=== PATIENT | female | born 1965 | race Caucasian/White ===

== ENCOUNTER 2019-05-25 09:02 | Inpatient (IN) | payer BC, SELFPAY ==
[2019-05-25] VITALS (36 sets, daily range): BP systolic 103–175; BP diastolic 56–107; PULSE 80–109; RESP 15–24; TEMP 36.4–36.9; O2SAT 94–100; BMI 23.3; BMI 23.1; BMI 22.9
--- NOTE | 2019-05-25 09:21 | EKG12_ITS ---
Test Reason : STROKE TEAM Blood Pressure : / mmHG Vent. Rate : 092 BPM Atrial Rate : 092 BPM P-R Int : 134 ms QRS Dur : 104 ms QT Int : 374 ms P-R-T Axes : 052 002 056 degrees QTc Int : 462 ms Normal sinus rhythm Nonspecific ST abnormality Abnormal ECG Confirmed by OSWALD BARBOUR, VENICE ([id number]), assignment desk editor RADHA WESTBROOK ([id number]) on 05/30/2019 11:44:49 AM Referred By: PORTIA Confirmed By:BAYRON AKERS MD
--- NOTE | 2019-05-25 09:21 | CT_ITS ---
STUDY: CT BRAIN WITHOUT CONTRAST REASON FOR EXAM: Female, 54 years old. Stroke protocol. RADIATION DOSAGE (If Supplied By Facility): CTDIvol = ( 44.99 ) mGy, DLP = ( 745.49 ) mGycm TECHNIQUE: Transaxial CT imaging of the brain was performed without administration of intravenous contrast material. Multiplanar reformations are submitted for interpretation. Individualized dose optimization techniques were used for this CT. COMPARISON: No relevant priors. FINDINGS: Normal soft tissue structures. Normal calvarium. Normal size ventricles and extra-axial spaces for the patient''s age. Normal white matter tracts of the cerebral hemispheres. Normal basal ganglia and thalami. Normal brainstem. Normal cerebellum. There is no intracranial hemorrhage. There is minimal atherosclerotic calcification of the intracranial arteries. There is opacification of right-sided mastoid air cells. Left-sided mastoid is well pneumatized. Normal visualized paranasal sinuses. CT/Brain/Head without Contrast IMPRESSION: 1. No CT evidence of acute intracranial hemorrhage. 2. Right-sided mastoid disease. N.B. : The above information has been verbally conveyed by Maria Isabel Matamoros MD to Rahul Horowitz M.D., MD, on 05/25/2019 09:37:36 (ET). Electronically Signed: Maria Isabel Matamoros MD at 9:39 EST , Service support ,
--- NOTE | 2019-05-25 09:22 | CT_ITS ---
STUDY: CTA HEAD AND NECK WITH CONTRAST REASON FOR EXAM: Female, 54 years old. Signs and symptoms of the posterior circulation CVA with dizziness and extremity weakness. RADIATION DOSAGE (If Supplied By Facility): CTDIvol = ( 28.4 ) mGy, DLP = ( 540.04 ) mGycm TECHNIQUE: CT angiography was performed with a multi-detector CT scanner. Data acquisition was obtained from the skull base through the vertex following intravenous administration of 100 cc of Isovue 370. MIP images were reconstructed from the axial data set. Post-processing of the angiographic images was performed, with multiplanar reformation and 3D reconstruction. Individualized dose optimization techniques were used for this CT. COMPARISON: CT of the head dated May 25, 2019. FINDINGS: Normal bilateral petrous carotid arteries. There is elongation and tortuosity of the right cavernous carotid artery without a demonstrated hemodynamically significant stenosis. There is ectatic elongation and tortuosity of the left cavernous carotid artery without a demonstrated hemodynamically significant stenosis. Normal right A1 segments of the anterior cerebral artery. Normal left A1 segments of the anterior cerebral artery. Normal intact anterior communicating artery (ACOM). There appears to be azygous variant of the A2 segment. Normal right M1 and M2 segments of the middle cerebral arteries, with a normal M1 bifurcation. Normal left M1 and M2 segments of the middle cerebral arteries, with a normal M1 bifurcation. Normal right posterior communicating artery (PCOM). 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 Normal bilateral vertebral arteries. Normal basilar artery with a normal basilar bifurcation. The visualized bilateral superior cerebellar (SCA) arteries are normal. Normal bilateral P1, P2 and visualized P3 segments of the posterior cerebral arteries. There is no demonstrated aneurysm of the [place] of [place]. There is no demonstrated abnormality of the visualized brain. AORTIC ARCH: Normal visualized aortic arch. Normal origins of the brachiocephalic, left common carotid, and left subclavian arteries. RIGHT CAROTID ARTERIES: Normal right common carotid artery (CCA). Normal right common carotid bulb. Normal origin of the right internal carotid (ICA) artery without a hemodynamically significant stenosis. There is atherosclerotic tortuous elongation of the cervical portion of the right internal carotid artery. Normal origin of the right external carotid artery (ECA). LEFT CAROTID ARTERIES: Normal left common carotid artery (CCA). Normal left common carotid bulb. Normal origin of the left internal carotid (ICA) artery without a hemodynamically significant stenosis. There is atherosclerotic tortuous elongation of the cervical portion of the left internal carotid artery. Normal origin of the left external carotid artery (ECA). VERTEBRAL ARTERIES: Normal bilateral vertebral arteries. NECK ANATOMY: Lung apices appear to be clear. There is reversal of normal cervical lordosis. There is multilevel degenerative changes of the cervical spine. Imaged paranasal sinuses appear to be clear. Visualized parotid and submandibular glands have a normal appearance. Nasopharynx, oropharynx, hypopharynx and larynx have a grossly normal appearance. The subglottic trachea is within normal limits. The thyroid has a normal appearance. CT/CTA Head AND Neck W/ Contrast IMPRESSION: No CT evidence for hemodynamically significant stenosis, acute thrombosis, dissection or aneurysm. N.B. : The above information has been verbally conveyed by Maria Isabel Matamoros MD to Rahul Horowitz MD, on 05/25/2019 09:55:05 (ET). Electronically Signed: Maria Isabel Matamoros MD at 9:56 EST , Service support ,
--- NOTE | 2019-05-25 09:23 | ED.VIS.STROK ---
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 She denies headache or chest pain or syncope. Someone checked her blood pressure and it was very high. This all led to her coming to the emergency department. She arrives and is evaluated just about an hour after the onset of symptoms. She has never had a stroke. 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 She also has a history of cervical disease in her neck around C5, that sometimes gives her pain, that has not been an acute issue either. Denies any neurologic symptoms in her face or her leg today, nor problem speaking or understanding others. 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 Denies: Chills, Fever, Sweats Eyes: Denies: Visual changes - bilaterally, Diplopia ENT: Denies: Bilateral ear pain, Rhinorrhea, Sore throat Cardiovascular: Denies: Chest pain, Palpitations Respiratory: Denies: Dyspnea, Cough, Dyspnea on exertion Gastrointestinal: Denies: Abdominal pain, Nausea, Vomiting, Diarrhea, Melena, Hematochezia Genitourinary: Denies: Dysuria, Hematuria, Frequency Musculoskeletal: Denies: Neck pain, Back pain, Extremity Pain Skin: Denies: Rash, Wounds Neurological: Reports: Weakness, Parasthesia, - - dizziness. Denies: Headache STROKE Vital Signs/Narrative: Vital Signs Temp Pulse Resp BP Pulse Ox 05/25/19 09:15 100 20 H 159/90 H 99 05/25/19 09:14 108 H 20 H 175/93 H 99 05/25/19 09:03 98.2 F 109 H 16 168/107 H 100 Inital Vital Signs reviewed: Yes - NIHSS Initial 1a Level of Consciousness: 0 1b LOC Questions (Score 2 if aphasic/stupor): 0 1c LOC Commands (Only score 1st attempt): 0 2 Best Gaze (If aphasic, use reflexive mvmts.): 0 3 Visual: 0 4 Facial Palsy: 0 5 Motor Arm Right (UN = amputation/fusion): 0 5 Motor Arm Left: 0 6 Motor Leg Right: 0 6 Motor Leg Left: 0 7 Limb ataxia (Only + if out of proportion): 0 8 Sensory (Aphasia/stupor=0 or 1, coma=2): 1 9 Best Language: 0 10 Dysarthria (mute, coma=2, intubated=UN): 0 11 Extinction and Inattention (only scored if +): 0 Total Score: 1 General: Well nourished, Well developed Head: Normocephalic, Atraumatic Eyes: Perrl, EOMI ENT: Moist mucous membranes, No rhinorrhea, TM's clear - except for chronic-appearing perforation right TM, no discharge Neck: Supple, Nontender, No lymphadenopathy, No JVD, - - ?slight carotid bruit on right only Cardiovascular: Regular rate, Regular rhythm, No murmurs, Normal S1, Normal S2, Tachycardia Respiratory: No distress, CTA bilaterally, Chest nontender Abdomen: Soft, Nontender, Nondistended, Normal bowel sounds Back: Nontender, Normal Inspection Extremities: Nontender, No edema Skin: Normal color, No rash, No Trauma Neurological: Alert, Oriented x3, Cranial nerves II-XII grossly intact, Normal 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 No CT evidence of acute intracranial hemorrhage. 2. Right-sided mastoid disease. N.B. : The above information has been verbally conveyed by Maria Isabel Matamoros MD to Rahul Horowitz M.D., MD, on 05/25/2019 09:37:36 (ET). Electronically Signed: Maria Isabel Matamoros MD at 9:39 EST , Service support , ADDENDUM: 05/25/19 0946 IMPRESSION: 1. No CT evidence of acute intracranial hemorrhage. 2. Right-sided mastoid disease. N.B. : The above information has been verbally conveyed by Maria Isabel Matamoros MD to Rahul Horowitz M.D., , on 05/25/2019 09:37:36 (ET). Electronically Signed: Maria Isabel Matamoros MD at 9:39 EST , Service support , Head/Neck CTA 05/25/19 09:22 IMPRESSION: No CT evidence for hemodynamically significant stenosis, acute thrombosis, dissection or aneurysm. N.B. : The above information has been verbally conveyed by Maria Isabel Matamoros MD to Rahul Horowitz MD, on 05/25/2019 09:55:05 (ET). Electronically Signed: Maria Isabel Matamoros MD at 9:56 EST , Service support , ADDENDUM: 05/25/19 1003 IMPRESSION: No CT evidence for hemodynamically significant stenosis, acute thrombosis, dissection or aneurysm. N.B. : The above information has been verbally conveyed by Maria Isabel Matamoros MD to Rahul Horowitz MD, on 05/25/2019 09:55:05 (ET). Electronically Signed: Maria Isabel Matamoros MD at 9:56 EST , Service support , 05/25/19 09:21 Brain/Head without Contrast [CT] Stat Chest 1 View [RAD] Stat 05/25/19 09:22 CTA Head AND Neck W/ Contrast [CT] Stat Laboratory Results 05/25/19 05/25/19 05/25/19 09:18 09:35 09:35 WBC 8.9 RBC 4.55 Hgb 12.9 Hct 38.6 MCV 84.8 MCH 28.4 MCHC 33.4 RDW Std Deviation 38.0 RDW Coeff of Anu 12.4 Plt Count 272 MPV 8.3 Immature Gran % (Auto) 0.900 Neut % (Auto) 68.0 Lymph % (Auto) 21.5 [place] % (Auto) 7.7 Eos % (Auto) 1.3 Baso % (Auto) 0.6 Absolute Neuts (auto) 6.1 Absolute Lymphs (auto) 1.92 Nucleated RBC % 0 PT 13.3 INR 1.0 APTT 27.6 Sodium Potassium Chloride Carbon Dioxide Anion Gap BUN Creatinine Estim Creat Clear Calc Est GFR (MDRD) Af Amer Est GFR (MDRD) Non-Af BUN/Creatinine Ratio Glucose Calcium Troponin I POC Glucose 91 05/25/19 09:35 WBC RBC Hgb Hct MCV MCH MCHC RDW Std Deviation RDW Coeff of Anu Plt Count MPV Immature Gran % (Auto) Neut % (Auto) Lymph % (Auto) [place] % (Auto) Eos % (Auto) Baso % (Auto) Absolute Neuts (auto) Absolute Lymphs (auto) Nucleated RBC % PT INR APTT Sodium 131 L Potassium 3.3 L Chloride 97 L Carbon Dioxide 28.0 Anion Gap 6 BUN 10 Creatinine 0.64 Estim Creat Clear Calc 80.40 Est GFR (MDRD) Af Amer 125 Est GFR (MDRD) Non-Af 103 BUN/Creatinine Ratio 15.6 Glucose 85 Calcium 7.6 L Troponin I < 0.015 POC Glucose - Rhythm Strip Rhythm Strip: Sinus Tach Rate: 105 Ectopy: None - EKG Initial EKG Interpretation: Sinus Rhythm, No Acute Injury Pattern - normal EKG - Medical Decision Making Stroke Team Activated: Yes Reviewed Inclusion/Exclusion criteria: Yes - no CIs. Was Patient considered for Endovascular Intervention?: No - neg CTA IV Alteplase (t-PA) Administered: Yes - see below No contraindications for IV Alteplase (t-PA) administration.: Yes Alteplase (t-PA) risks, benefits, alternative discussed: Yes Negative head CT result provided by radiologist by telephone at 0936. Discussed w/ neurologist just prior, who later beamed in via teleneurology to evaluate the patient. There was extensive decision-making time spent prior to administering TPA on this patient. Since I thought the deficits were not measurable initially, she was sent for CT along with CT angiography at the same time. This did not cause any significant time delay in getting her back to the room, neurology beamed in well-after she arrived back to the room anyway. According to the neurologist examination, she is displaying some ataxia on her right lower extremity. In the decision-making process, the neurologist agreed that there was no measurable deficit unless she was ataxic with walking, in which case he would recommend TPA. We had the patient ambulate outside the room in the hallway, to and from the bathroom, she went to the bathroom to urinate. Upon returning she thinks she is walking okay, saying that she still does not feel exactly right but that she is walking pretty well. There was more discussion. The patient had back/neck injections 1 week ago. Time was spent determining that her injections were not epidural or spinal, but were all lateral to the right of midline, and she knows they will not intended to be epidural or subdural. They were for her neck pain and she thinks they were muscular, or facet, or both. The neurologist was looking up guidelines for this, and whether it was a relative contraindication for TPA or not but once we determined they were not epidural/subdural, we moved on. The patient ended up wanting TPA, understanding risks and benefits and the possibility that she could be left with permanent deficits and also understanding the possibility that even if she does not receive TPA, her deficits may improve or resolve on their own. Therefore TPA was immediately ordered, however apparently the patient's old weight was in the computer and not her updated 1. This made a very minor discrepancy in the TPA dosing, pharmacy refused to deliver the appropriate dosing until I change the order which I did as soon as I was notified of this discrepancy. TPA was started in the emergency department, I discussed with Dr. Sauer for ICU admission and further evaluation. The patient is clinically and hemodynamically stable upon admission from the emergency department. Critical care time (excluding procedures): 30-74 minutes - 35 minutes, including time spent discussing with patient, discussion with consultants, arranging admission, and performing direct patient care to bedside/reevaluation ED Disposition - Plan for ED Patient: Disposition: Acute Care Hospital [facility] Diagnosis: Acute ischemic stroke, Vertigo Referrals: Chaka Shah III, MD [Primary Care Provider] -
[2019-05-25 09:25] LABS: Bedside Glucose 91 mg/dL (70-110)
[2019-05-25 09:45] LABS: Absolute Lymphocyte Count 1.92 X10^3/uL (0.83-4.51); Absolute Neutrophil Count 6.1 X10^3/uL (2.0-7.7); Basophil# 0.05 X10^3/uL; Basophil% 0.6 % (0-1); Eosinophil# 0.12 X10^3/uL; Eosinophils% 1.3 % (0-5); Hematocrit 38.6 % (37-47); Hemoglobin 12.9 g/dL (12.0-15.0); Lymphocyte # 1.92 X10^3/ul (4.0); Lymphocyte % 21.5 % (19-41); Mean Corp Hgb Conc 33.4 g/dL (32-36); Mean Corpuscular Hgb 28.4 pg (27.0-32.0); Mean Corpuscular Volume 84.8 fL (81-99); Mean Platelet Vol. 8.3 fl (6.2-12.0); Monocyte# 0.69 X10^3/uL; Monocyte% 7.7 % (0-10); NRBC Flagged by Analyzer 0 % (0-5); Neutrophil # 6.06 X10^3/uL (2.7-7.7); Platelet Count 272 K/mm3 (150-450); RBC Distribution Width CV 12.4 % (11.6-14.6); Red Blood Count 4.55 M/mm3 (4.2-5.4); White Blood Count 8.9 K/mm3 (4.4-11.0)
[2019-05-25 10:02] LABS: Prothrombin Time (Protime)PT. 13.3 SECONDS (11.7-14.9)
[2019-05-25 10:03] LABS: Partial Thromboplast Time 27.6 Seconds (24.1-36.2)
[2019-05-25 10:11] LABS: Anion Gap 6 (5-15); BUN 10 mg/dL (7-18); BUN/Creat Ratio 15.6 RATIO (10-20); Calcium,Total 7.6 mg/dL (8.5-10.1); Chloride 97 mmol/L (98-107); Creatinine, Serum 0.64 mg/dL (0.55-1.02); EST Glomerular Filtration Rate 103 mL/min (>60); Est Glom Filt Rate - Afr Amer 125 mL/min (>60); Glucose 85 mg/dL (74-106); Potassium 3.3 mmol/L (3.5-5.1); Sodium Level 131 mmol/L (136-145)
--- NOTE | 2019-05-25 10:19 | ED.RN ---
0945-osu dr. bernabe on telestroke and assessing pt. nih a 3 for numbness, ataxia and rt arm drift per dr. pt anxious and tearful.
--- NOTE | 2019-05-25 10:42 | RAD_ITS ---
STUDY: X-RAY CHEST REASON FOR EXAM: Female, 54 years old. CVA symptoms. TECHNIQUE: Single AP portable view of the chest. COMPARISON: Comparison is made with prior study dated March 24, 2017. FINDINGS: EKG electrodes are seen. The lungs are clear and expanded. Scattered calcified granulomas. There is no demonstrated pleural abnormality. Normal size heart. Normal mediastinum and rut. Normal visualized pulmonary arteries. Normal visualized aortic arch and descending thoracic aorta. There are degenerative changes of the visualized thoracic spine. Normal visualized ribs, clavicles, and shoulders. There is no demonstrated abnormality of the visualized soft tissue structures of the upper abdomen. RAD/Chest 1 View IMPRESSION: No acute abnormality is seen. Electronically Signed: Henry Langston, at 11:11 EST , Service support ,
--- NOTE | 2019-05-25 10:49 | HP.PCM_ITS ---
Problem List (1) Acute ischemic stroke Status: Acute (2) Vertigo Status: Acute (3) Degeneration of C5-C6 intervertebral disc Status: Chronic (4) Urticarial vasculitis Status: Chronic History of Present Illness Date of Admission: 05/25/19 Chief Complaint: Dizziness. The patient is a 54 year old F in relatively good health who presented with sudden onset of dizziness. Patient symptoms located at work when she developed sudden onset of dizziness. Patient described dizziness as difficulty trying to find her balance. She also did complain of feeling nauseous. And later experience some tingling sensation involving the right upper extremity. Her colleagues at work did check her blood pressure and systolic was reported to be greater than 180 (patient has no history of blood pressure). 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 Stroke alert was called when patient did arrive in the ED was deemed to be an appropriate candidate for TPA for which patient did receive and subsequently admitted to the intensive care unit for further management. 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) Allergies acetaminophen [From Percocet] Allergy (Verified 12/06/16 09:55) Hives oxycodone HCl [From Percocet] Allergy (Verified 12/06/16 09:55) Hives Sulfa (Sulfonamide Antibiotics) Allergy (Verified 01/30/17 18:20) Hives Home Medications: Ambulatory Orders Medication Instructions Recorded Cetirizine HCl [Zyrtec] 5 mg PO BID 10/29/15 Ibuprofen 400 mg PO Q6H PRN 01/30/17 Lives: Spouse/ Significant Other Smoking Status: Never smoker Drugs: None - *Family History Paternal History Items: - - Father from suicide Review of Systems Constitutional: Denies: Anorexia, Chills, Fever, Night Sweats, Weight Change HEENT: Denies: Head Aches, Sinus Congestion, Sinus Drainage Cardiovascular: Denies: Chest Pain, Orthopnea, Palpitations, Paroxysmal Noc. Dyspnea Respiratory: Denies: Cough, Shortness of breath at rest, Shortness of breath upon exertion, Sputum production Gastrointestinal: Denies: Abdominal Pain, Hematemesis, Hematochezia, Nausea, Melena, Vomiting Genitourinary: Denies: Dysuria, Frequency, Hematuria, Urgency Musculoskeletal: Denies: Joint Pain, Joint Tenderness Skin: Denies: Rash Neurological: Reports: Balance problems, Tingling. Denies: Focal weakness, Numbness Psychiatric: Denies: Homicidal Ideations, Suicidal Ideations Hematologic/ Lymphatic: Denies: Easy Bruising, Easy Bleeding VTE Information - Inpt Only VTE Present on Admission: No VTE Mechan Device Prophylaxis: SCD's, None VTE Pharm Prophylaxis ordered?: Yes Patient Problems: Active and Suspected Problems Acute ischemic stroke (Acute) Vertigo (Acute) Objective: GENERAL: cooperative HEENT: Atraumatic; EYES; Anicteric, Normal Conjunctiva NECK; supple, normal thyroid, RESPIRATORY: Diminished to auscultation CARDIOVASCULAR: Regular S1 S2, GI: soft, normoactive bowel sounds, : No Renal angle tenderness; EXTREMITIES: No edema, no clubbing, MUSCULOSKELETAL: no muscle waisting NEURO: Awake; no lateralizing signs. SKIN: No Rash PSYCH; Flat affect - Physical Exam Vitals/I&O's: Vital Signs Temp Pulse Resp BP Pulse Ox 98.2 F 104 H 20 H 144/82 H 94 05/25/19 09:03 05/25/19 10:37 05/25/19 10:37 05/25/19 10:37 05/25/19 10:37 Oxygen Delivery Method Room Air Weight: 57.334 kg Body Mass Index (BMI) 23.1 Finger Stick Blood Glucose 91 Laboratory Results 05/25/19 09:18: POC Glucose 91 05/25/19 09:35: WBC 8.9, RBC 4.55, Hgb 12.9, Hct 38.6, MCV 84.8, MCH 28.4, MCHC 33.4, RDW Std Deviation 38.0, RDW Coeff of Anu 12.4, Plt Count 272, MPV 8.3, Immature Gran % (Auto) 0.900, Neut % (Auto) 68.0, Lymph % (Auto) 21.5, [place] % (Auto) 7.7, Eos % (Auto) 1.3, Baso % (Auto) 0.6, Absolute Neuts (auto) 6.1, Absolute Lymphs (auto) 1.92, Nucleated RBC % 0 05/25/19 09:35: PT 13.3, INR 1.0, APTT 27.6 05/25/19 09:35: Sodium 131 L, Potassium 3.3 L, Chloride 97 L, Carbon Dioxide 28.0, Anion Gap 6, BUN 10, Creatinine 0.64, Estim Creat Clear Calc 80.40, Est GFR (MDRD) Af Amer 125, Est GFR (MDRD) Non-Af 103, BUN/Creatinine Ratio 15.6, Glucose 85, Calcium 7.6 L, Troponin I < 0.015 Current Medications Acetaminophen (Tylenol) 650 mg PO .X1 PRN PRN Reason: Temp > 99.6 F Diphenhydramine HCl (Benadryl) 50 mg IV .X1 PRN PRN Reason: Allergic Reaction Stop: 05/27/19 10:10 Epinephrine HCl () 0.3 mg IM .X1 PRN PRN Reason: Allergic Reaction Stop: 05/27/19 10:10 Sodium Chloride () 1,000 mls @ 100 mls/hr IV .Q10H CHRISTINE Nicardipine HCl 25 mg/ Sodium (Chloride) 250 mls @ 0 mls/hr IV .Q0M PRN; Protocol PRN Reason: see instructions Famotidine 20 mg/ Sodium (Chloride) 10 mls @ 300 mls/hr IV .X1 PRN PRN Reason: Allergic Reaction Stop: 05/27/19 10:10 Alteplase, Recombinant 46.6 mg (/ N/A) 46.6 mls @ 46.6 mls/hr IV X1 ONE Stop: 05/25/19 11:19 Last Admin: 05/25/19 10:34 Dose: 46.6 mls/hr Documented by: Labetalol HCl (Trandate) 20 mg IV X1 PRN PRN Reason: BLOOD PRESSURE Methylprednisolone (Solu-Medrol) 125 mg IV .X1 PRN PRN Reason: Allergic Reaction Stop: 05/27/19 10:10 Assessment/Plan All Active Problems Acute ischemic stroke (Acute) Vertigo (Acute) Patient is a 54-year-old lady presenting with sudden onset of vertigo, right upper extremity numbness. An assessment of suspected acute CVA made patient did receive TPA subsequently admitted to the intensive care unit 1. Suspected posterior circulation CVA patient presented with sudden onset vert igo as well as right upper extremity numbness. She did receive TPA. Subsequently admitted to the intensive care unit for close monitoring. Repeat MRI with contrast ordered for 05/26/2018. As part of patient's management requested PT OT eval and treatment, speech therapy assessment and consultation placed to Dr. Yen with intensive care for ICU management while patient is in the ICU 2. Elevated blood pressure Patient also known hypertensive patient blood pressure had apparently stabilized at the time of admission 3. Urticarial vasculitis Patient is apparently followed by dentist/owner. She was instructed not to take aspirin previously since aspirin is known to worsen her condition. Patient is however on ibuprofen. 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 DVT prophylaxis SCDs for now Code Visit Inpatient E&M: 16865 Init Hosp L3
--- NOTE | 2019-05-25 11:09 | ED.RN ---
dr. gray in room assessing pt.
--- NOTE | 2019-05-25 11:26 | ED.RN ---
1117 nih completed at bedside with icu staff. nih of 1
--- NOTE | 2019-05-25 11:32 | ECHOD_ITS ---
Reason For Study: TIA/CVA Procedure This was a 2D Doppler, Color Flow transthoracic echocardiogram. Exam performed portable in ICU/CCU. Left Ventricle Normal size and thickness. The estimated ejection fraction is 65 %. Stage 1 diastolic dysfunction. No regional wall motion abnormalities noted. Right Ventricle Normal size and thickness. A moderator band is seen in the right ventricle. Normal systolic function. Atria Normal left atrium. Normal right atrium. Normal atrial septum. Bubble contrast study negative for right to left interatrial shunt. Mitral Valve The mitral valve is structurally normal. No prolapse or stenosis seen. Equivocal mitral valve prolapse. Mild (1+) mitral valve insufficiency. Tricuspid Valve Normal tricuspid valve. Trivial tricuspid valve insufficiency. Right ventricular systolic pressure estimated to be 24 mmHg. Aortic Valve Trisinus/trileaflet aortic valve. Mild focal aortic valve thickening. Mild-Moderate (1-2+) aortic valve insufficiency. Pulmonic Valve Normal pulmonic valve. Trivial pulmonic valve insufficiency. Great Vessels Normal aortic root. Normal arch. Normal inferior vena cava. Inferior vena cava collapse with sniff. Pericardium/Pleural No pericardial effusion. Medication Performed a rapid injection of agitated mix of 9 cc saline and 1cc air to assess for atrial septal defect. MMode/2D Measurements & Calculations LVIDd: 4.8 cm IVSd: 0.87 cm Ao root diam: 3.2 cm LVIDs: 3.3 cm LVPWd: 0.69 cm RVDd: 3.0 cm FS: 31.9 % LAV(MOD-bp): 25.1 ml LVAd ap4: 21.4 cm2 SV(MOD-sp4): 33.8 ml LAV(MOD-bp) Indexed: 16.0 ml/m2 EDV(MOD-sp4): 59.1 ml LAV(MOD-sp2): 31.7 ml EDV(sp4-el): 60.5 ml LAV(MOD-sp4): 15.7 ml LVAs ap4: 12.7 cm2 ESV(MOD-sp4): 25.3 ml ESV(sp4-el): 25.3 ml EF(MOD-sp4): 57.2 % EF(sp4-el): 58.3 % SV(sp4-el): 35.3 ml LA A4 area: 7.9 cm2 LA dimension(2D): 2.8 cm RA A4 area: 8.3 cm2 Doppler Measurements & Calculations MV E max rambo: 60.9 cm/sec Lat Peak E' Rambo: 8.3 cm/sec Med Peak E' Rambo: 4.7 cm/sec MV A max rambo: 85.7 cm/sec E/E' lat: 7.4 E/E' med: 12.9 MV E/A: 0.71 Ao V2 max: 151.4 cm/sec AI max rambo: 487.6 cm/sec LV V1 max: 88.4 cm/sec Ao max P.2 mmHg AI max P.2 mmHg LV V1 max P.1 mmHg Ao V2 mean: 100.6 cm/sec Ao mean P.5 mmHg AI dec slope: 353.2 cm/sec2 Ao V2 VTI: 25.5 cm AI P1/2t: 404.4 msec PA V2 max: 79.3 cm/sec PI end-d rambo: 92.9 cm/sec TR max rambo: 215.9 cm/sec TR max P.6 mmHg Interpretation Summary The estimated ejection fraction is 65 %. Stage 1 diastolic dysfunction. Bubble contrast study negative for right to left interatrial shunt. Mild (1+) mitral valve insufficiency. Trivial tricuspid valve insufficiency. Right ventricular systolic pressure estimated to be 24 mmHg. Mild-Moderate (1-2+) aortic valve insufficiency. There is no comparison study available. Ordering Physician: Choco Sauer Referring Physician: Chaka Shah Performed By: Maureen Gabriel RDCS, RVT
--- NOTE | 2019-05-25 11:42 | PCM.CON.CC ---
Reason for Consult Date of Consultation: 05/25/19 Reason for Consultation: CVA s/p TPA History of Present Illness: The patient is a 54-year-old female, with a history as outlined below, who presented to the emergency department on May 25 with complaints of dizziness along with right arm paresthesia and weakness. The patient was apparently at work in her normal state of health this morning when her symptoms came on rather acutely. 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 The patient is a lifelong non-smoker. She denies a previous history of CVA. She has never been diagnosed with hyperlipidemia, nor is she prescribed a statin. The patient denies a prior history of underlying cardiac dysrhythmia. On presentation to the emergency department, the patient was noted to be afebrile and hemodynamically stable. She was maintaining appropriate oxygen saturations on room air. Initial laboratory evaluation revealed no evidence of a leukocytosis. Coagulation profile was within normal limits. Chemistry profile was notable for a sodium of 131, potassium of 3.3 chloride of 97. Troponin was negative. CT head revealed no acute intracranial hemorrhage. Right-sided mastoid disease was noted. CTA head and neck was subsequently obtained which revealed no hemodynamically significant stenosis, acute thrombosis, dissection or aneurysm. Neurology consultation was obtained and TPA was recommended. Following TPA administration, the patient was admitted to the medical intensive care unit for further management. 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) Allergies acetaminophen [From Percocet] Allergy (Verified 12/06/16 09:55) Hives oxycodone HCl [From Percocet] Allergy (Verified 12/06/16 09:55) Hives Sulfa (Sulfonamide Antibiotics) Allergy (Verified 01/30/17 18:20) Hives Home Medications: Ambulatory Orders Medication Instructions Recorded Cetirizine HCl [Zyrtec] 5 mg PO BID 10/29/15 Ibuprofen 400 mg PO Q6H PRN 01/30/17 Lives: Spouse/ Significant Other Smoking Status: Never smoker Drugs: None - *Family History Paternal History Items: - - Father from suicide Review of Systems Constitutional: Denies: Chills, Fever Eyes: Denies: Blurred vision, Double vision HEENT: Denies: Head Aches, Sinus Congestion, Sinus Drainage Cardiovascular: Reports: Palpitations. Denies: Chest Pain Respiratory: Denies: Cough, Shortness of breath at rest, Sputum production Gastrointestinal: Denies: Abdominal Pain, Nausea, Vomiting Genitourinary: Denies: Dysuria Musculoskeletal: Denies: Joint Pain, Joint Tenderness Skin: Denies: Rash, Wounds Neurological: Reports: Focal weakness, Numbness Psychiatric: Denies: Anxiety, Depression, Homicidal Ideations, Suicidal Ideations Hematologic/ Lymphatic: Denies: Easy Bruising, Easy Bleeding Patient Problems: Active and Suspected Problems Acute ischemic stroke (Acute) Vertigo (Acute) Objective: The patient's most recent lab work, culture data and imaging studies have all been personally reviewed. - Physical Exam Vitals/I&O's: Vital Signs Temp Pulse Resp BP Pulse Ox 98.3 F 85 18 135/81 H 97 05/25/19 10:51 05/25/19 11:17 05/25/19 11:17 05/25/19 11:17 05/25/19 11:17 Oxygen Delivery Method Room Air Weight: 126 lb 6.4 oz Body Mass Index (BMI) 23.1 Finger Stick Blood Glucose 91 General: Alert, Oriented x3, Cooperative, No apparent distress HEENT: Atraumatic, PERRLA, Normocephalic Oral: No Gingival or Mucosal Lesions/ Ulcerations Neck: Supple, No Nodes, Trachea Midline Lungs: Normal air movement, No rhonchi, No wheeze, No rales Cardiovascular: Normal S1, Normal S2, No murmurs, Tachycardic, - - Sinus tachycardia on telemetry Abdomen: Bowel Sounds Present, Soft, Non Tender Extremities: No clubbing, No cyanosis, No edema Skin: No breakdown Musculoskeletal: No Tenderness to Palpation of Joints or Extremities, No Muscle Wasting Lymphatic: No Cervical, Supraclavicular, or Inguinal Adenopathy Neurological: - - No focal neurological deficits. NIH score currently 1 Psych/Mental Status: Alert and oriented to time, place, person, mood and affect Labs (Last 48 Hours) 05/25/19 05/25/19 05/25/19 09:18 09:35 09:35 WBC 8.9 RBC 4.55 Hgb 12.9 Hct 38.6 MCV 84.8 MCH 28.4 MCHC 33.4 RDW Std Deviation 38.0 RDW Coeff of Anu 12.4 Plt Count 272 MPV 8.3 Immature Gran % (Auto) 0.900 Neut % (Auto) 68.0 Lymph % (Auto) 21.5 [place] % (Auto) 7.7 Eos % (Auto) 1.3 Baso % (Auto) 0.6 Absolute Neuts (auto) 6.1 Absolute Lymphs (auto) 1.92 Nucleated RBC % 0 PT 13.3 INR 1.0 APTT 27.6 Sodium Potassium Chloride Carbon Dioxide Anion Gap BUN Creatinine Estim Creat Clear Calc Est GFR (MDRD) Af Amer Est GFR (MDRD) Non-Af BUN/Creatinine Ratio Glucose Calcium Troponin I POC Glucose 91 05/25/19 09:35 WBC RBC Hgb Hct MCV MCH MCHC RDW Std Deviation RDW Coeff of Anu Plt Count MPV Immature Gran % (Auto) Neut % (Auto) Lymph % (Auto) [place] % (Auto) Eos % (Auto) Baso % (Auto) Absolute Neuts (auto) Absolute Lymphs (auto) Nucleated RBC % PT INR APTT Sodium 131 L Potassium 3.3 L Chloride 97 L Carbon Dioxide 28.0 Anion Gap 6 BUN 10 Creatinine 0.64 Estim Creat Clear Calc 80.40 Est GFR (MDRD) Af Amer 125 Est GFR (MDRD) Non-Af 103 BUN/Creatinine Ratio 15.6 Glucose 85 Calcium 7.6 L Troponin I < 0.015 POC Glucose Clinical Impression(s) from Imaging Studies Brain CT 05/25/19 09:21 IMPRESSION: 1. No CT evidence of acute intracranial hemorrhage. 2. Right-sided mastoid disease. N.B. : The above information has been verbally conveyed by Maria Isabel Matamoros MD to Rahul Horowitz M.D., MD, on 05/25/2019 09:37:36 (ET). Electronically Signed: Maria Isabel Matamoros MD at 9:39 EST , Service support , ADDENDUM: 05/25/19 0946 IMPRESSION: 1. No CT evidence of acute intracranial hemorrhage. 2. Right-sided mastoid disease. N.B. : The above information has been verbally conveyed by Maria Isabel Matamoros MD to Rahul Horowitz M.D., MD, on 05/25/2019 09:37:36 (ET). Electronically Signed: Maria Isabel Matamoros MD at 9:39 EST , Service support , Head/Neck CTA 05/25/19 09:22 IMPRESSION: No CT evidence for hemodynamically significant stenosis, acute thrombosis, dissection or aneurysm. N.B. : The above information has been verbally conveyed by Maria Isabel Matamoros MD to Rahul Horowitz MD, on 05/25/2019 09:55:05 (ET). Electronically Signed: Maria Isbael Matamoros MD at 9:56 EST , Service support , ADDENDUM: 05/25/19 1003 IMPRESSION: No CT evidence for hemodynamically significant stenosis, acute thrombosis, dissection or aneurysm. N.B. : The above information has been verbally conveyed by Maria Isabel Matamoros MD to Rahul Horowitz MD, on 05/25/2019 09:55:05 (ET). Electronically Signed: Maria Isabel Matamoros MD at 9:56 EST , Service support , Chest X-Ray 05/25/19 10:42 IMPRESSION: No acute abnormality is seen. Electronically Signed: Henry Langston, at 11:11 EST , Service support , Current Medications Acetaminophen (Tylenol) 650 mg PO .X1 PRN PRN Reason: Temp > 99.6 F Acetaminophen (Tylenol) 650 mg PO Q6H PRN PRN PRN Reason: Pain Score 1-3/Temp > 100.7 F Al Hydroxide/Mg Hydroxide (Mylanta Ii) 30 ml PO Q6H PRN PRN PRN Reason: Gastric Burning Albuterol Sulfate (Ventolin Aerosols) 2.5 mg INHALATION Q2H PRN PRN PRN Reason: SOB/Wheezing Dextrose (D50w Syringe) 0 gm IV X1 PRN; Protocol PRN Reason: Hypoglycemia Diphenhydramine HCl (Benadryl) 50 mg IV .X1 PRN PRN Reason: Allergic Reaction Stop: 05/27/19 10:10 Diphenhydramine HCl (Benadryl) 50 mg IV X1 PRN PRN Reason: Allergic Reaction Epinephrine HCl () 0.3 mg IM .X1 PRN PRN Reason: Allergic Reaction Stop: 05/27/19 10:10 Glucagon () 1 mg IM .X1 PRN PRN Reason: Hypoglycemia Sodium Chloride () 1,000 mls @ 100 mls/hr IV .Q10H CHRISTINE Nicardipine HCl 25 mg/ Sodium (Chloride) 250 mls @ 0 mls/hr IV .Q0M PRN; Protocol PRN Reason: see instructions Famotidine 20 mg/ Sodium (Chloride) 10 mls @ 300 mls/hr IV .X1 PRN PRN Reason: Allergic Reaction Stop: 05/27/19 10:10 Potassium Chloride/Sodium Chloride () 1,000 mls @ 125 mls/hr IV .Q8H CHRISTINE Labetalol HCl (Trandate) 20 mg IV X1 PRN PRN Reason: BLOOD PRESSURE Magnesium Hydroxide (Milk Of Magnesia) 30 ml PO DAILY PRN PRN PRN Reason: Constipation Melatonin (Melatonin) 3 mg PO QHS PRN PRN PRN Reason: INSOMNIA Methylprednisolone (Solu-Medrol) 125 mg IV .X1 PRN PRN Reason: Allergic Reaction Stop: 05/27/19 10:10 Non-Formulary Medication (Cetirizine Hcl [Zyrtec]) 5 mg PO BID CHRISTINE Ondansetron HCl (Zofran) 4 mg IV Q8H PRN PRN PRN Reason: NAUSEA/VOMITING Assessment/Plan Active and Suspected Problems Acute ischemic stroke (Acute) Vertigo (Acute) RECOMMENDATIONS: 1. Continue routine monitoring per TPA protocol. 2. Neurology consultation in a.m. 3. Obtain echocardiogram 4. Repeat head imaging tomorrow. 5. Check lipid profile. 6. Maintain systolic blood pressure less than 180 mmHg. 7. Complete bed rest for 24 hours post TPA administration. IMPRESSIONS: 1. Acute ischemic CVA status post TPA The patient presented to the hospital with symptoms concerning for ischemic CVA. The patient was evaluated by neurology and subsequently received TPA in the emergency department. At this time, she will be monitored in the ICU setting per TPA protocol. Repeat head and imaging, echocardiogram and neurology consultation will be completed tomorrow. Maintain systolic blood pressure less than 180 mmHg. Maintain bedrest per protocol. This note was generated with [employer] dictation software. It may contain incorrect words, spelling, and punctuation that were not noted in checking the note before signing. Code Visit Inpatient E&M: 55962 Init Hosp L3
[2019-05-25] MEDS: 0.9% Saline Lock 10 ML Syringe IV (13:02)
--- NOTE | 2019-05-25 14:15 | CASEMGMT ---
RN CM Assessment Presentation: CVA, TPA Intro role of CM and purpose of RN CM assessment to patient in room. Pt is awake, alert, oriented and able to participate in assessment. Demographics, PCP and Pharmacy verified. Pt was independent prior to admission, no use of DME. Plan is to return home. RN CM discussed PT/OT will be doing evaluations and if recommended, assistance would be given to set up on dc. Pt is agreeable. PCP: Dr. Chaka Shah III Specialists: Dr. Yen Preferred Pharmacy: [facility] Insurance: [employer] Prescription Benefit: yes LNOK: , Isaias Anderson Living Arrangements: Lives independently with her and son. Pt plans to return home on dc with family support. Transportation: drives and family is able to assist if needed. DME: none Patient DC goals: Home DC PLAN: Home on dc. PT/OT evaluations pending. CM to assist with any dc needs that arise. Abdulkadir ARIASN RN ACM
[2019-05-25 22:46] LABS: Bedside Glucose 114 mg/dL (70-110)
[2019-05-26] VITALS (28 sets, daily range): BP systolic 100–150; BP diastolic 53–93; PULSE 70–102; RESP 14–26; TEMP 36.6–37.1; O2SAT 96–100; BMI 22.9
[2019-05-26 05:00] LABS: Absolute Lymphocyte Count 1.85 X10^3/uL (0.83-4.51); Absolute Neutrophil Count 6.1 X10^3/uL (2.0-7.7); Basophil# 0.04 X10^3/uL; Basophil% 0.5 % (0-1); Eosinophil# 0.15 X10^3/uL; Eosinophils% 1.7 % (0-5); Hematocrit 40.1 % (37-47); Lymphocyte # 1.85 X10^3/ul (4.0); Lymphocyte % 20.9 % (19-41); Mean Corp Hgb Conc 32.4 g/dL (32-36); Mean Corpuscular Volume 86.4 fL (81-99); Mean Platelet Vol. 8.2 fl (6.2-12.0); Monocyte# 0.63 X10^3/uL; Monocyte% 7.1 % (0-10); NRBC Flagged by Analyzer 0 % (0-5); Neutrophil # 6.12 X10^3/uL (2.7-7.7); Platelet Count 286 K/mm3 (150-450); RBC Distribution Width CV 12.8 % (11.6-14.6); RBC Distribution Width SD 39.9 fl (35.1-43.9); Red Blood Count 4.64 M/mm3 (4.2-5.4); White Blood Count 8.9 K/mm3 (4.4-11.0)
[2019-05-26 05:27] LABS: Anion Gap 6 (5-15); BUN 8 mg/dL (7-18); BUN/Creat Ratio 15.7 RATIO (10-20); Calcium,Total 7.6 mg/dL (8.5-10.1); Chloride 111 mmol/L (98-107); Cholesterol 210 mg/dL (200); Creatinine, Serum 0.51 mg/dL (0.55-1.02); EST Glomerular Filtration Rate 134 mL/min (>60); Est Glom Filt Rate - Afr Amer 162 mL/min (>60); Glucose 96 mg/dL (74-106); High Density Lipoprotein 59 mg/dL; Sodium Level 143 mmol/L (136-145); Triglycerides 186 mg/dL; Very Low Density Lipoprotein 37 mg/dL (5-40)
--- NOTE | 2019-05-26 06:43 | PCM.PN.INT ---
Subjective: The patient was seen and examined at the bedside this morning. Events from the last 24 hours have been reviewed. The patient is currently afebrile, hemodynamically stable and maintaining appropriate oxygen saturations on room air. NIH was reported to be 0 this morning. Objective: The patient's most recent lab work, culture data and imaging studies have all been personally reviewed. Surface echocardiogram revealed normal LV size and thickness with an ejection fraction of 65% and stage I diastolic dysfunction. Contrast study was negative for right to left shunt. General: Alert, Cooperative, No apparent distress HEENT: Atraumatic, PERRLA, Normocephalic Oral: Moist Mucosa, No Gingival or Mucosal Lesions/ Ulcerations Neck: Supple, No Nodes, Trachea Midline Lungs: Normal air movement, No rhonchi, No wheeze, No rales Cardiovascular: Regular rate, Regular Rhythm, Normal S1, Normal S2, No murmurs Abdomen: Bowel Sounds Present, Soft, Non Tender Extremities: No clubbing, No cyanosis, No edema Skin: No breakdown Musculoskeletal: No Tenderness to Palpation of Joints or Extremities, No Muscle Wasting Lymphatic: No Cervical, Supraclavicular, or Inguinal Adenopathy Neurological: Cranial nerves II-XII grossly intact, Neuro grossly intact Psych/Mental Status: Alert and oriented to time, place, person, mood and affect Vital Signs Temp Pulse Resp BP Pulse Ox 98.1 F 87 14 108/70 100 05/26/19 05:34 05/26/19 05:34 05/26/19 05:34 05/26/19 05:34 05/26/19 05:34 Oxygen Delivery Method Room Air Weight: 125 lb 7.088 oz Body Mass Index (BMI) 22.9 Finger Stick Blood Glucose 91 Intake and Output for Last 24 Hours 05/24/19 05/25/19 05/26/19 23:59 23:59 23:59 Intake Total 1772.36 / 2644.03 1480.00 / 1480.00 Output Total 1600 / 2700 1700 / 1700 Balance 172.36 / -55.97 -220.00 / -220.00 Labs (Last 48 Hours) 05/25/19 05/25/19 05/25/19 09:18 09:35 09:35 WBC 8.9 RBC 4.55 Hgb 12.9 Hct 38.6 MCV 84.8 MCH 28.4 MCHC 33.4 RDW Std Deviation 38.0 RDW Coeff of Anu 12.4 Plt Count 272 MPV 8.3 Immature Gran % (Auto) 0.900 Neut % (Auto) 68.0 Lymph % (Auto) 21.5 [place] % (Auto) 7.7 Eos % (Auto) 1.3 Baso % (Auto) 0.6 Absolute Neuts (auto) 6.1 Absolute Lymphs (auto) 1.92 Nucleated RBC % 0 PT 13.3 INR 1.0 APTT 27.6 Sodium Potassium Chloride Carbon Dioxide Anion Gap BUN Creatinine Estim Creat Clear Calc Est GFR (MDRD) Af Amer Est GFR (MDRD) Non-Af BUN/Creatinine Ratio Glucose Calcium Troponin I Triglycerides Cholesterol LDL Cholesterol VLDL Cholesterol HDL Cholesterol POC Glucose 91 05/25/19 05/25/19 05/25/19 09:35 13:00 22:38 WBC RBC Hgb Hct MCV MCH MCHC RDW Std Deviation RDW Coeff of Anu Plt Count MPV Immature Gran % (Auto) Neut % (Auto) Lymph % (Auto) [place] % (Auto) Eos % (Auto) Baso % (Auto) Absolute Neuts (auto) Absolute Lymphs (auto) Nucleated RBC % PT INR APTT Sodium 131 L Potassium 3.3 L Chloride 97 L Carbon Dioxide 28.0 Anion Gap 6 BUN 10 Creatinine 0.64 Estim Creat Clear Calc 80.40 Est GFR (MDRD) Af Amer 125 Est GFR (MDRD) Non-Af 103 BUN/Creatinine Ratio 15.6 Glucose 85 Calcium 7.6 L Troponin I < 0.015 < 0.015 Triglycerides Cholesterol LDL Cholesterol VLDL Cholesterol HDL Cholesterol POC Glucose 114 H 05/26/19 05/26/19 04:50 04:50 WBC 8.9 RBC 4.64 Hgb 13.0 Hct 40.1 MCV 86.4 MCH 28.0 MCHC 32.4 RDW Std Deviation 39.9 RDW Coeff of Anu 12.8 Plt Count 286 MPV 8.2 Immature Gran % (Auto) 0.800 Neut % (Auto) 69.0 Lymph % (Auto) 20.9 [place] % (Auto) 7.1 Eos % (Auto) 1.7 Baso % (Auto) 0.5 Absolute Neuts (auto) 6.1 Absolute Lymphs (auto) 1.85 Nucleated RBC % 0 PT INR APTT Sodium 143 Potassium 4.0 Chloride 111 H Carbon Dioxide 26.0 Anion Gap 6 BUN 8 Creatinine 0.51 L Estim Creat Clear Calc 100.90 Est GFR (MDRD) Af Amer 162 Est GFR (MDRD) Non-Af 134 BUN/Creatinine Ratio 15.7 Glucose 96 Calcium 7.6 L Troponin I Triglycerides 186 Cholesterol 210 H LDL Cholesterol 114 VLDL Cholesterol 37 HDL Cholesterol 59 POC Glucose Clinical Impression(s) from Imaging Studies Brain CT 05/25/19 09:21 IMPRESSION: 1. No CT evidence of acute intracranial hemorrhage. 2. Right-sided mastoid disease. N.B. : The above information has been verbally conveyed by Maria Isabel Matamoros MD to Rahul Horowitz M.D., MD, on 05/25/2019 09:37:36 (ET). Electronically Signed: Maria Isabel Matamoros MD at 9:39 EST , Service support , ADDENDUM: 05/25/19 0946 IMPRESSION: 1. No CT evidence of acute intracranial hemorrhage. 2. Right-sided mastoid disease. N.B. : The above information has been verbally conveyed by Maria Isabel Matamoros MD to Rahul Horowitz M.D., , on 05/25/2019 09:37:36 (ET). Electronically Signed: Maria Isabel Matamoros MD at 9:39 EST , Service support , Head/Neck CTA 05/25/19 09:22 IMPRESSION: No CT evidence for hemodynamically significant stenosis, acute thrombosis, dissection or aneurysm. N.B. : The above information has been verbally conveyed by Maria Isabel Matamoros MD to Rahul Horowitz MD, on 05/25/2019 09:55:05 (ET). Electronically Signed: Maria Isabel Matamoros MD at 9:56 EST , Service support , ADDENDUM: 05/25/19 1003 IMPRESSION: No CT evidence for hemodynamically significant stenosis, acute thrombosis, dissection or aneurysm. N.B. : The above information has been verbally conveyed by Maria Isabel Matamoros MD to Rahul Horowitz MD, on 05/25/2019 09:55:05 (ET). Electronically Signed: Maria Isabel Matamoros MD at 9:56 EST , Service support , Chest X-Ray 05/25/19 10:42 IMPRESSION: No acute abnormality is seen. Electronically Signed: Henry Ivis, at 11:11 EST , Service support , Medical Necessity - Tobacco Use Smoking Status: Never smoker Tobacco Use: Non-smoker Assessment/Plan All Active Problems Acute ischemic stroke (Acute) Vertigo (Acute) RECOMMENDATIONS: 1. Repeat head imaging prior to initiation of antiplatelet agents. 2. Continue bed rest for 24 hours post TPA. PT/OT consultations afterwards. 3. MRI head pending. 4. Start statin. 5. Will sign off from a critical care perspective. IMPRESSIONS: 1. Acute ischemic CVA status post TPA The patient presented to the hospital with symptoms concerning for ischemic CVA. The patient was evaluated by neurology and subsequently received TPA in the emergency department. At this time, she will be monitored in the ICU setting per TPA protocol. Repeat head imaging is currently scheduled. The patient will require initiation of antiplatelet agents along with statin once head imaging is complete. Patient to be continued on bedrest until 24 hours post TPA, after which time, PT/OT evaluations will be completed. This note was generated with [employer] dictation software. It may contain incorrect words, spelling, and punctuation that were not noted in checking the note before signing. Code Visit Inpatient E&M: 07415 Subs Hosp L2
--- NOTE | 2019-05-26 07:30 | PN_ITS ---
Patient Problems: Active and Suspected Problems Acute ischemic stroke (Acute) Vertigo (Acute) Reason for Visit: Follow-up suspected posterior circulation CVA Subjective: Patient is a 54-year-old lady presenting with sudden onset of vertigo, right upper extremity numbness. An assessment of suspected acute CVA made patient did receive TPA subsequently admitted to the intensive care unit Patient scheduled to undergo MRI of the brain for follow-up following administration of TPA. Patient this morning denies any numbness or any vertiginous symptoms. Objective: GENERAL: cooperative HEENT: Atraumatic; EYES; Anicteric, Normal Conjunctiva NECK; supple, normal thyroid, RESPIRATORY: Diminished to auscultation CARDIOVASCULAR: Regular S1 S2, GI: soft, normoactive bowel sounds, : No Renal angle tenderness; EXTREMITIES: No edema, no clubbing, MUSCULOSKELETAL: no muscle waisting NEURO: Awake; no lateralizing signs. SKIN: No Rash PSYCH; Flat affect Vitals/I&O's: Vital Signs Temp Pulse Resp BP Pulse Ox 98.1 F 76 17 143/74 H 98 05/26/19 05:34 05/26/19 06:34 05/26/19 06:34 05/26/19 06:34 05/26/19 06:46 Oxygen Delivery Method Room Air Weight: 58.1 kg Body Mass Index (BMI) 22.9 Finger Stick Blood Glucose 91 Intake and Output for Last 24 Hours 05/24/19 05/25/19 05/26/19 23:59 23:59 23:59 Intake Total 1772.36 / 2644.03 1480.00 / 1480.00 Output Total 1600 / 2700 1700 / 1700 Balance 172.36 / -55.97 -220.00 / -220.00 Laboratory Results 05/25/19 09:18: POC Glucose 91 05/25/19 09:35: WBC 8.9, RBC 4.55, Hgb 12.9, Hct 38.6, MCV 84.8, MCH 28.4, MCHC 33.4, RDW Std Deviation 38.0, RDW Coeff of Anu 12.4, Plt Count 272, MPV 8.3, Immature Gran % (Auto) 0.900, Neut % (Auto) 68.0, Lymph % (Auto) 21.5, [place] % (Auto) 7.7, Eos % (Auto) 1.3, Baso % (Auto) 0.6, Absolute Neuts (auto) 6.1, Absolute Lymphs (auto) 1.92, Nucleated RBC % 0 05/25/19 09:35: PT 13.3, INR 1.0, APTT 27.6 05/25/19 09:35: Sodium 131 L, Potassium 3.3 L, Chloride 97 L, Carbon Dioxide 28.0, Anion Gap 6, BUN 10, Creatinine 0.64, Estim Creat Clear Calc 80.40, Est GF R (MDRD) Af Amer 125, Est GFR (MDRD) Non-Af 103, BUN/Creatinine Ratio 15.6, Glucose 85, Calcium 7.6 L, Troponin I < 0.015 05/25/19 13:00: Troponin I < 0.015 05/25/19 22:38: POC Glucose 114 H 05/26/19 04:50: WBC 8.9, RBC 4.64, Hgb 13.0, Hct 40.1, MCV 86.4, MCH 28.0, MCHC 32.4, RDW Std Deviation 39.9, RDW Coeff of Anu 12.8, Plt Count 286, MPV 8.2, Immature Gran % (Auto) 0.800, Neut % (Auto) 69.0, Lymph % (Auto) 20.9, [place]ima % (Auto) 7.1, Eos % (Auto) 1.7, Baso % (Auto) 0.5, Absolute Neuts (auto) 6.1, Absolute Lymphs (auto) 1.85, Nucleated RBC % 0 05/26/19 04:50: Sodium 143, Potassium 4.0, Chloride 111 H, Carbon Dioxide 26.0, Anion Gap 6, BUN 8, Creatinine 0.51 L, Estim Creat Clear Calc 100.90, Est GFR (MDRD) Af Amer 162, Est GFR (MDRD) Non-Af 134, BUN/Creatinine Ratio 15.7, Glucose 96, Calcium 7.6 L, Triglycerides 186, Cholesterol 210 H, LDL Cholesterol 114, VLDL Cholesterol 37, HDL Cholesterol 59 Current Medications Acetaminophen (Tylenol) 650 mg PO Q6H PRN PRN PRN Reason: Pain Score 1-3/Temp > 100.7 F Al Hydroxide/Mg Hydroxide (Mylanta Ii) 30 ml PO Q6H PRN PRN PRN Reason: Gastric Burning Albuterol Sulfate (Ventolin Aerosols) 2.5 mg INHALATION Q2H PRN PRN PRN Reason: SOB/Wheezing Diphenhydramine HCl (Benadryl) 50 mg IV X1 PRN PRN Reason: Allergic Reaction Epinephrine HCl () 0.3 mg IM .X1 PRN PRN Reason: Allergic Reaction Stop: 05/27/19 10:10 Glucagon () 1 mg IM .X1 PRN PRN Reason: Hypoglycemia Nicardipine HCl 25 mg/ Sodium (Chloride) 250 mls @ 0 mls/hr IV .Q0M PRN; Protocol PRN Reason: see instructions Famotidine 20 mg/ Sodium (Chloride) 10 mls @ 300 mls/hr IV .X1 PRN PRN Reason: Allergic Reaction Stop: 05/27/19 10:10 Potassium Chloride/Sodium Chloride () 1,000 mls @ 125 mls/hr IV .Q8H CHRISTINE Last Admin: 05/26/19 04:58 Dose: 125 mls/hr Documented by: Dextrose (Dextrose 10%-Water) 250 mls @ 999 mls/hr IV .Q16M PRN; Protocol PRN Reason: HYPOGLYCEMIA Sodium Chloride () 250 mls @ 15 mls/hr IV .[id number] PRN PRN Reason: Saline Flush Sodium Chloride () 250 mls @ 15 mls/hr IV .[id number] PRN PRN Reason: Additional IVPB Infusion Labetalol HCl (Trandate) 20 mg IV X1 PRN PRN Reason: BLOOD PRESSURE Loratadine (Claritin) 10 mg PO DAILY CHRISTINE Magnesium Hydroxide (Milk Of Magnesia) 30 ml PO DAILY PRN PRN PRN Reason: Constipation Melatonin (Melatonin) 3 mg PO QHS PRN PRN PRN Reason: INSOMNIA Methylprednisolone (Solu-Medrol) 125 mg IV .X1 PRN PRN Reason: Allergic Reaction Stop: 05/27/19 10:10 Ondansetron HCl (Zofran) 4 mg IV Q8H PRN PRN PRN Reason: NAUSEA/VOMITING Sodium Chloride () 10 - 40 ml IV UD PRN PRN Reason: SALINE FLUSH Last Admin: 05/25/19 13:02 Dose: 10 ml Documented by: STROKE Vital Signs/Narrative: Vital Signs Temp Pulse Resp BP Pulse Ox 05/26/19 06:46 98 05/26/19 06:34 76 17 143/74 H 99 05/26/19 05:34 98.1 F 87 14 108/70 100 05/26/19 04:34 78 17 113/64 98 05/26/19 03:39 81 05/26/19 03:34 70 16 109/72 99 Medical Necessity - Tobacco Use Smoking Status: Never smoker Tobacco Use: Non-smoker Assessment/Plan All Active Problems Acute ischemic stroke (Acute) Vertigo (Acute) Patient is a 54-year-old lady presenting with sudden onset of vertigo, right upper extremity numbness. An assessment of suspected acute CVA made patient did receive TPA subsequently admitted to the intensive care unit 1. 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 She did receive TPA. Subsequently admitted to the intensive care unit for close monitoring. Repeat MRI with contrast ordered for 05/26/2018. As part of patient's management requested PT OT eval and treatment, speech therapy assessment and consultation placed to Dr. Yen with intensive care for ICU management while patient is in the ICU ?05/26/2019;Patient scheduled to undergo MRI of the brain for follow-up following administration of TPA. Patient this morning denies any numbness or any vertiginous symptoms. Results of of 2D echo obtained is as below. 2. 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 She was instructed not to take aspirin previously since aspirin is known to worsen her condition. Patient is however on ibuprofen. 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 DVT prophylaxis SCDs for now Active Medications Acetaminophen (Tylenol) 650 mg PO Q6H PRN PRN PRN Reason: Pain Score 1-3/Temp > 100.7 F Al Hydroxide/Mg Hydroxide (Mylanta Ii) 30 ml PO Q6H PRN PRN PRN Reason: Gastric Burning Albuterol Sulfate (Ventolin Aerosols) 2.5 mg INHALATION Q2H PRN PRN PRN Reason: SOB/Wheezing Diphenhydramine HCl (Benadryl) 50 mg IV X1 PRN PRN Reason: Allergic Reaction Epinephrine HCl () 0.3 mg IM .X1 PRN PRN Reason: Allergic Reaction Stop: 05/27/19 10:10 Glucagon () 1 mg IM .X1 PRN PRN Reason: Hypoglycemia Nicardipine HCl 25 mg/ Sodium (Chloride) 250 mls @ 0 mls/hr IV .Q0M PRN; Protocol PRN Reason: see instructions Famotidine 20 mg/ Sodium (Chloride) 10 mls @ 300 mls/hr IV .X1 PRN PRN Reason: Allergic Reaction Stop: 05/27/19 10:10 Potassium Chloride/Sodium Chloride () 1,000 mls @ 125 mls/hr IV .Q8H CHRISTINE Last Admin: 05/26/19 04:58 Dose: 125 mls/hr Documented by: Dextrose (Dextrose 10%-Water) 250 mls @ 999 mls/hr IV .Q16M PRN; Protocol PRN Reason: HYPOGLYCEMIA Sodium Chloride () 250 mls @ 15 mls/hr IV .[id number] PRN PRN Reason: Saline Flush Sodium Chloride () 250 mls @ 15 mls/hr IV .[id number] PRN PRN Reason: Additional IVPB Infusion Labetalol HCl (Trandate) 20 mg IV X1 PRN PRN Reason: BLOOD PRESSURE Loratadine (Claritin) 10 mg PO DAILY CHRISTINE Magnesium Hydroxide (Milk Of Magnesia) 30 ml PO DAILY PRN PRN PRN Reason: Constipation Melatonin (Melatonin) 3 mg PO QHS PRN PRN PRN Reason: INSOMNIA Methylprednisolone (Solu-Medrol) 125 mg IV .X1 PRN PRN Reason: Allergic Reaction Stop: 05/27/19 10:10 Ondansetron HCl (Zofran) 4 mg IV Q8H PRN PRN PRN Reason: NAUSEA/VOMITING Sodium Chloride () 10 - 40 ml IV UD PRN PRN Reason: SALINE FLUSH Last Admin: 05/25/19 13:02 Dose: 10 ml Documented by: Interpretation Summary The estimated ejection fraction is 65 %. Stage 1 diastolic dysfunction. Bubble contrast study negative for right to left interatrial shunt. Mild (1+) mitral valve insufficiency. Trivial tricuspid valve insufficiency. Right ventricular systolic pressure estimated to be 24 mmHg. Mild-Moderate (1-2+) aortic valve insufficiency. There is no comparison study available. Clinical Impression(s) from Imaging Studies Brain CT 05/25/19 09:21 IMPRESSION: 1. No CT evidence of acute intracranial hemorrhage. 2. Right-sided mastoid disease. N.B. : The above information has been verbally conveyed by Maria Isabel Matamoros MD to Rahul Horowitz M.D., MD, on 05/25/2019 09:37:36 (ET). Electronically Signed: Maria Isabel Matamoros MD at 9:39 EST , Service support , ADDENDUM: 05/25/19 0946 IMPRESSION: 1. No CT evidence of acute intracranial hemorrhage. 2. Right-sided mastoid disease. N.B. : The above information has been verbally conveyed by Maria Isabel Matamoros MD to Rahul Horowitz M.D., , on 05/25/2019 09:37:36 (ET). Electronically Signed: Maria Isabel Matamoros MD at 9:39 EST , Service support , Head/Neck CTA 05/25/19 09:22 IMPRESSION: No CT evidence for hemodynamically significant stenosis, acute thrombosis, dissection or aneurysm. N.B. : The above information has been verbally conveyed by Maria Isabel Matamoros MD to Rahul Horowitz MD, on 05/25/2019 09:55:05 (ET). Electronically Signed: Maria Isabel Matamoros MD at 9:56 EST , Service support , ADDENDUM: 05/25/19 1003 IMPRESSION: No CT evidence for hemodynamically significant stenosis, acute thrombosis, dissection or aneurysm. N.B. : The above information has been verbally conveyed by Maria Isabel Matamoros MD to Rahul Horowitz MD, on 05/25/2019 09:55:05 (ET). Electronically Signed: Maria Isabel Matamoros MD at 9:56 EST , Service support , Chest X-Ray 05/25/19 10:42 IMPRESSION: No acute abnormality is seen. Electronically Signed: Henry Langston, at 11:11 EST , Service support , Code Visit Inpatient E&M: [id number] Subs Hosp L2
--- NOTE | 2019-05-26 10:30 | MRI_ITS ---
STUDY: MRI BRAIN WITHOUT CONTRAST REASON FOR EXAM: Female, 54 years old. CVA TECHNIQUE: Standardized multiplanar fat and water weighted pulse sequences were obtained. COMPARISON: None. FINDINGS: Normal size of the ventricles and extra-axial spaces for the patient''s age. Normal white matter tracts of the supratentorial brain. There is no evidence for recent intracranial ischemia or other cause of cytotoxic edema on diffusion weighted imaging (DWI). Normal T2* images of the brain without demonstrated susceptibility artifact. There is no demonstrated hemosiderin stain. Normal bilateral basal ganglia. Normal thalami. There is no extra-axial fluid accumulation. Normal flow voids within the major intracranial circulation suggesting patency by spin echo criteria. Normal sella turcica, pituitary gland, infundibular stalk, optic chiasm and hypothalamus. Normal tectal plate and pineal gland. Normal midbrain, tutu and medulla. Normal cerebellum. Normal basal cisterns. Normal bilateral temporal bones. Normal bilateral internal auditory canals. There is opacification of the right mastoid air cells. No demonstrated orbital abnormality, within the constraints of a routine brain study. Normal visualized paranasal sinuses. Normal calvarium and skull base. Normal visualized soft tissue structures. Normal visualized upper cervical spine. MRI/Brain without Contrast IMPRESSION: Normal unenhanced MRI of the brain. Opacification of the right mastoid air cells may represent acute mastoiditis. Electronically Signed: Rakesh Hercules, at 14:58 EST Tel , Service support ,
[2019-05-26] MEDS: Loratadine 10 MG Tablet PO (12:11)
--- NOTE | 2019-05-26 17:40 | NURSING ---
bedside NIH completed with this RN and TECHNOLOGY STRATEGIST Annelise
[2019-05-26] MEDS: Atorvastatin Calcium 80 MG Tablet PO (21:16)
[2019-05-27 01:10] VITALS: BP 109/69; PULSE 91; RESP 18; TEMP 36; O2SAT 98
[2019-05-27 03:00] VITALS: PULSE 77
[2019-05-27 05:10] VITALS: BP 106/67; PULSE 94; RESP 18; TEMP 36.7; O2SAT 96
[2019-05-27] MEDS: Acetaminophen 325 MG Tablet 650 MG PO (05:20)
[2019-05-27 07:00] VITALS: PULSE 81
[2019-05-27 07:15] VITALS: O2SAT 99
[2019-05-27 07:33] LABS: Absolute Lymphocyte Count 2.71 X10^3/uL (0.83-4.51); Absolute Neutrophil Count 8.3 X10^3/uL (2.0-7.7); Basophil# 0.06 X10^3/uL; Basophil% 0.5 % (0-1); Eosinophil# 0.18 X10^3/uL; Eosinophils% 1.5 % (0-5); Hematocrit 46.5 % (37-47); Hemoglobin 15.1 g/dL (12.0-15.0); Lymphocyte # 2.71 X10^3/ul (4.0); Lymphocyte % 22.3 % (19-41); Mean Corp Hgb Conc 32.5 g/dL (32-36); Mean Corpuscular Volume 86.3 fL (81-99); Mean Platelet Vol. 8.6 fl (6.2-12.0); Monocyte# 0.81 X10^3/uL; Monocyte% 6.7 % (0-10); NRBC Flagged by Analyzer 0 % (0-5); Neutrophil # 8.32 X10^3/uL (2.7-7.7); Neutrophil % 68.3 % (47-70); Platelet Count 358 K/mm3 (150-450); RBC Distribution Width CV 12.6 % (11.6-14.6); RBC Distribution Width SD 39.2 fl (35.1-43.9); Red Blood Count 5.39 M/mm3 (4.2-5.4); White Blood Count 12.2 K/mm3 (4.4-11.0)
[2019-05-27 07:41] LABS: Anion Gap 7 (5-15); BUN 15 mg/dL (7-18); BUN/Creat Ratio 21.1 RATIO (10-20); Calcium,Total 9.1 mg/dL (8.5-10.1); Chloride 107 mmol/L (98-107); Creatinine, Serum 0.71 mg/dL (0.55-1.02); EST Glomerular Filtration Rate 91 mL/min (>60); Est Glom Filt Rate - Afr Amer 111 mL/min (>60); Estimated Creatinine Clearance 72.47 ml/min; Glucose 87 mg/dL (74-106); Potassium 3.8 mmol/L (3.5-5.1); Sodium Level 141 mmol/L (136-145)
[2019-05-27] MEDS: Loratadine 10 MG Tablet PO (08:13)
[2019-05-27] MEDS: Clopidogrel Bisulfate 75 MG Tablet PO (08:13)
[2019-05-27 09:10] VITALS: BP 115/71; PULSE 63; RESP 12; TEMP 36.7; O2SAT 97
--- NOTE | 2019-05-27 11:45 | PCM.DC ---
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 F/U PCP Call your doctor if you observe: Fever of 101 or Higher, Numbness or Tingling, Inability to urinate, Inability to have a bowel movement, Shortness of breath, Dizziness, Fainting spells, Swelling in the ankles, Chest pain, Increased palpitations (irregular heartbeat), Uncontrolled pain Additional Instructions: Discharged on 30 days event monitor. F/U [facility] for event monitor Allergies/Adverse Reactions: Allergies acetaminophen [From Percocet] Allergy (Verified 12/06/16 09:55) Hives oxycodone HCl [From Percocet] Allergy (Verified 12/06/16 09:55) Hives Sulfa (Sulfonamide Antibiotics) Allergy (Verified 01/30/17 18:20) Hives Medications to take at Discharge Cetirizine HCl [Zyrtec] 5 mg PO BID 10/29/15 Ibuprofen 400 mg PO Q6H PRN 01/30/17 Atorvastatin Calcium [Lipitor] 80 mg PO QHS #30 tab 05/27/19 Clopidogrel Bisulfate [Plavix] 75 mg PO DAILY #30 tab 05/27/19 Losartan Potassium [Cozaar] 25 mg PO DAILY #30 tab 05/27/19 The following prescriptions were given: Losartan Potassium [Cozaar] 25 mg PO DAILY #30 tab Transmission Status: Received by [facility] Atorvastatin Calcium [Lipitor] 80 mg PO QHS #30 tab Transmission Status: Received by [facility] Clopidogrel Bisulfate [Plavix] 75 mg PO DAILY #30 tab Transmission Status: Received by [facility] Primary Care Physician: Chaka Shah III, MD [Primary Care Provider] - Please follow up with your Primary Care Physician in: IN 1-2 WEEKS Test Results: Test results from this visit will be discussed in further detail at your follow-up appointment, if applicable. Please Follow Up With: Jorge Juarez MD When: IN 2-4 WEEKS
--- NOTE | 2019-05-27 11:48 | PCM.DC.SUM ---
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 In ER, NIH 2. An assessment of suspected acute CVA made patient did receive TPA subsequently admitted to the intensive care unit. 1. 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 She did receive TPA. Patient was admitted in ICU. Repeat MRI with contrast ordered for 05/26/2018. As part of patient's management requested PT OT eval and treatment, speech therapy assessment and consultation placed to Dr. Yen with intensive care for ICU management while patient is in the ICU Patient was subsequently transferred to PCU. MRI brain shows no evidence of acute stroke or hemorrhage but opacification of right mastoid air cells. Patient has history of recurrent mastoiditis since childhood. Patient has seen ENT before. Patient had several rounds of antibiotics most recently about 1 or 2 weeks ago by PCP. Patient was advised to follow-up with ENT and avoid recurrent antibiotics because it may lead to development of MDRO or superinfection. Echo was done The estimated ejection fraction is 65 %. Stage 1 diastolic dysfunction. Bubble contrast study negative for right to left interatrial shunt. Mild (1+) mitral valve insufficiency. Trivial tricuspid valve insufficiency. Right ventricular systolic pressure estimated to be 24 mmHg. Mild-Moderate (1-2+) aortic valve insufficiency. CTA of head and neck did not show any major hemodynamically significant stenosis or aneurysm. SOC tele?neurology felt reviewed. Patient is discharged on high intensity statin atorvastatin 80 mg daily, losartan 25 mg daily and Plavix 75 mg daily. Prescription also given for 30 days event monitor and discussed with turnstile collector to follow-up on that. Neurology in 2 to 4 weeks. 2. Essential hypertension: Hypertensive urgency at the time of admission. Patient also known hypertensive patient blood pressure had apparently stabilized at the time of admission The patient's blood pressure came down without labetalol given a prescription for losartan 25 mg daily. Most recent blood pressure 115/71. 3. Urticarial vasculitis Patient is apparently followed by plant assigner. She was instructed not to take aspirin previously since aspirin is known to worsen her condition. Patient is however on ibuprofen. Do plan to initiate antiplatelet therapy with Plavix when appropriate Advised to restrict ibuprofen. 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 DVT prophylaxis SCDs for now Discharge medication reconciliation done. Discharge follow-up instructions completed. Discharge process discussed with the patient and all questions were answered to patient's satisfaction. Total time spent, exact 35 minutes on discharge meds reconciliation, examination, review of imaging and blood test and discussion with the patient on follow-up instructions. Clinical Impression(s) from Imaging Studies Brain CT 05/25/19 09:21 IMPRESSION: 1. No CT evidence of acute intracranial hemorrhage. 2. Right-sided mastoid disease. N.B. : The above information has been verbally conveyed by Maria Isabel Matamoros MD to Rahul Horowitz M.D., MD, on 05/25/2019 09:37:36 (ET). Electronically Signed: Maria Isabel Matamoros MD at 9:39 EST , Service support , ADDENDUM: 05/25/19 0946 IMPRESSION: 1. No CT evidence of acute intracranial hemorrhage. 2. Right-sided mastoid disease. N.B. : The above information has been verbally conveyed by Maria Isabel Matamoros MD to Rahul Horowitz M.D., MD, on 05/25/2019 09:37:36 (ET). Electronically Signed: Maria Isabel Matamoros MD at 9:39 EST , Service support , Head/Neck CTA 05/25/19 09:22 IMPRESSION: No CT evidence for hemodynamically significant stenosis, acute thrombosis, dissection or aneurysm. Chest X-Ray 05/25/19 10:42 IMPRESSION: No acute abnormality is seen. Brain MRI 05/26/19 10:30 IMPRESSION: Normal unenhanced MRI of the brain. Opacification of the right mastoid air cells may represent acute mastoiditis. Objective: Patient feels good. Denies any numbness, new weakness ataxia or language deficit or dysarthria. - Physical Exam Vitals/I&O's: Vital Signs Temp Pulse Resp BP Pulse Ox 98.0 F 63 12 115/71 97 05/27/19 09:10 05/27/19 09:10 05/27/19 09:10 05/27/19 09:10 05/27/19 09:10 Oxygen Delivery Method Room Air Weight: 129 lb 13.636 oz Body Mass Index (BMI) 22.9 Finger Stick Blood Glucose 91 Intake and Output for Last 24 Hours 05/25/19 05/26/19 05/27/19 23:59 23:59 23:59 Intake Total 1772.36 / 2644.03 2765.42 / 2765.42 400 / 400 Output Total 1600 / 2700 3145 / 3145 Balance 172.36 / -55.97 -379.58 / -379.58 400 / 400 General: Alert, Oriented x3, Cooperative HEENT: Atraumatic, PERRLA, EOMI, Normocephalic Neck: Supple, No JVD, Negative Carotid Bruits Lungs: Clear to auscultation, Normal air movement, No rhonchi, No wheeze, No rales Cardiovascular: Regular rate, Regular Rhythm, Normal S1, Normal S2, No murmurs Abdomen: Bowel Sounds Present, Soft, Non Tender, Non-Distended Extremities: No edema, Capillary Refill Less than 3 Seconds Skin: No rashes, No breakdown Musculoskeletal: No Tenderness to Palpation of Joints or Extremities, Arthritic Changes Neurological: Cranial nerves II-XII grossly intact, Deep Tendon Reflexes 2+/4 and Symmetrical, Neuro grossly intact, Motor Exam 5/5 strength throughout Psych/Mental Status: Normal Affect, Appropriate Laboratory Results 05/27/19 06:37: WBC 12.2 H, RBC 5.39, Hgb 15.1 H, Hct 46.5, MCV 86.3, MCH 28.0, MCHC 32.5, RDW Std Deviation 39.2, RDW Coeff of Anu 12.6, Plt Count 358, MPV 8.6, Immature Gran % (Auto) 0.700, Neut % (Auto) 68.3, Lymph % (Auto) 22.3, [place] % (Auto) 6.7, Eos % (Auto) 1.5, Baso % (Auto) 0.5, Absolute Neuts (auto) 8.3 H, Absolute Lymphs (auto) 2.71, Nucleated RBC % 0 05/27/19 06:37: Sodium 141, Potassium 3.8, Chloride 107, Carbon Dioxide 27.0, Anion Gap 7, BUN 15, Creatinine 0.71, Estim Creat Clear Calc 72.47, Est GFR (MDRD) Af Amer 111, Est GFR (MDRD) Non-Af 91, BUN/Creatinine Ratio 21.1 H, Glucose 87, Calcium 9.1 Current Medications Acetaminophen (Tylenol) 650 mg PO Q6H PRN PRN PRN Reason: Pain Score 1-3/Temp > 100.7 F Last Admin: 05/27/19 05:20 Dose: 650 mg Documented by: Al Hydroxide/Mg Hydroxide (Mylanta Ii) 30 ml PO Q6H PRN PRN PRN Reason: Gastric Burning Albuterol Sulfate (Ventolin Aerosols) 2.5 mg INHALATION Q2H PRN PRN PRN Reason: SOB/Wheezing Atorvastatin Calcium (Lipitor) 80 mg PO QHS [facility] Last Admin: 05/26/19 21:16 Dose: 80 mg Documented by: Clopidogrel Bisulfate (Plavix) 75 mg PO DAILY [facility] Last Admin: 05/27/19 08:13 Dose: 75 mg Documented by: Diphenhydramine HCl (Benadryl) 50 mg IV X1 PRN PRN Reason: Allergic Reaction Glucagon () 1 mg IM .X1 PRN PRN Reason: Hypoglycemia Nicardipine HCl 25 mg/ Sodium (Chloride) 250 mls @ 0 mls/hr IV .Q0M PRN; Protocol PRN Reason: see instructions Dextrose (Dextrose 10%-Water) 250 mls @ 999 mls/hr IV .Q16M PRN; Protocol PRN Reason: HYPOGLYCEMIA Sodium Chloride () 250 mls @ 15 mls/hr IV .[id number] PRN PRN Reason: Saline Flush Sodium Chloride () 250 mls @ 15 mls/hr IV .[id number] PRN PRN Reason: Additional IVPB Infusion Labetalol HCl (Trandate) 20 mg IV X1 PRN PRN Reason: BLOOD PRESSURE Loratadine (Claritin) 10 mg PO DAILY [facility] Last Admin: 05/27/19 08:13 Dose: 10 mg Documented by: Magnesium Hydroxide (Milk Of Magnesia) 30 ml PO DAILY PRN PRN PRN Reason: Constipation Melatonin (Melatonin) 3 mg PO QHS PRN PRN PRN Reason: INSOMNIA Ondansetron HCl (Zofran) 4 mg IV Q8H PRN PRN PRN Reason: NAUSEA/VOMITING Sodium Chloride () 10 - 40 ml IV UD PRN PRN Reason: SALINE FLUSH Last Admin: 05/25/19 13:02 Dose: 10 ml Documented by: Discharge Activity: May Not Drive - for 2-3 days. F/U PCP Call your doctor if you observe: Fever of 101 or Higher, Numbness or Tingling, Inability to urinate, Inability to have a bowel movement, Shortness of breath, Dizziness, Fainting spells, Swelling in the ankles, Chest pain, Increased palpitations (irregular heartbeat), Uncontrolled pain Home Medications: Medications to take at Discharge Cetirizine HCl [Zyrtec] 5 mg PO BID 10/29/15 Ibuprofen 400 mg PO Q6H PRN 01/30/17 Atorvastatin Calcium [Lipitor] 80 mg PO QHS #30 tab 05/27/19 Clopidogrel Bisulfate [Plavix] 75 mg PO DAILY #30 tab 05/27/19 Losartan Potassium [Cozaar] 25 mg PO DAILY #30 tab 05/27/19 Following Prescrptions Were Given to Patient: Losartan Potassium [Cozaar] 25 mg PO DAILY #30 tab Transmission Status: Received by [facility] Atorvastatin Calcium [Lipitor] 80 mg PO QHS #30 tab Transmission Status: Received by [facility] Clopidogrel Bisulfate [Plavix] 75 mg PO DAILY #30 tab Transmission Status: Received by [facility] Other Amb Orders: 30-Day Event Recorder [[facility]] Location: None Selected Primary Care Physician: Chaka Shah III, MD [Primary Care Provider] - Please follow up with your Primary Care Physician in: IN 1-2 WEEKS Please Follow Up With: Jogre Juarez MD When: IN 2-4 WEEKS Medical Necessity - Tobacco Use Smoking Status: Never smoker Tobacco Use: Non-smoker Meaningful Use Info Meaningful Use Diagnoses (Choose all that apply): Ischemic CVA - CVA Therapy Assessed for PT,OT and/or ST?: Yes - Ischemic Stroke Antithrombotic order at d/c?: Yes Dx of Atrial fib/flutter?: No Anticoagulant at discharge?: Yes Statins at discharge?: Yes Primary Dx Acute Ischemic CVA?: Yes IV tPA ordered during stay?: Yes Code Visit Inpatient E&M: 01218 Disch Hosp
--- NOTE | 2019-05-27 11:55 | CASEMGMT ---
Therapy is recommending OP/further skilled therapy at this time. Pt updated at this time, voices understanding and declines OP therapy at this time. Pt states was provided with some exercises to do at home and she states that she will call PCP once home if she feels that she needs OP set up at that time. Pt voices no further questions/concerns/needs at this time. Karen PATRICK CM
== END 2019-05-27 13:45 | disposition home or self-care (01) | DRG 63 ==
LOC: ED 10:27 → ICU 10:39 → PCU 05-26 17:07
PROVIDERS: Admitting Provider Internal Medicine; Emergency Provider Emergency Medicine; Family Provider Family Medicine; PCP Family Medicine; Visit Provider Internal Medicine
DX: I63.9 Cerebral infarction, unspecified (principal); L50.9 Urticaria, unspecified; R20.2 Paresthesia of skin; I77.6 Arteritis, unspecified; R29.701 NIHSS score 1; M50.322 Other cervical disc degeneration at C5-C6 level; R42 Dizziness and giddiness; I16.0 Hypertensive urgency; I10 Essential (primary) hypertension
CPT/HCPCS: 36415; 70450; 70496; 70498; 70551; 71045; 80048; 80061; 82962; 84484; 85025; 85610; 85730; 92507; 92523; 93005; 93306; 97110; 97116; 97161; 97166; 97530; 97802; 99284; J2997; Q9967; A4216

== ENCOUNTER → 2019-05-27 13:51 | Outpatient (REF) | payer BC, SELFPAY ==
[2019-05-26 23:20] VITALS: BMI 22.9
== END ==
LOC: CVS 13:51
PROVIDERS: Family Provider Family Medicine; PCP Family Medicine; Referring Provider Internal Medicine; Visit Provider Internal Medicine
DX: I63.89 Other cerebral infarction (principal)
CPT/HCPCS: 93270; 93271

== ENCOUNTER → 2020-04-26 15:52 | Outpatient (CLI) | payer BC, SELFPAY ==
[2019-07-06 12:30] VITALS: BMI 23.6
[2020-04-26 17:42] LABS: Absolute Lymphocyte Count 2.58 X10^3/uL (0.83-4.51); Absolute Neutrophil Count 3.5 X10^3/uL (2.0-7.7); Basophil# 0.07 X10^3/uL; Eosinophil# 0.37 X10^3/uL; Eosinophils% 5.3 % (0-5); Hematocrit 41.6 % (37-47); Hemoglobin 13.4 g/dL (12.0-15.0); Lymphocyte # 2.58 X10^3/ul (4.0); Lymphocyte % 36.8 % (19-41); Mean Corp Hgb Conc 32.2 g/dL (32-36); Mean Corpuscular Hgb 26.9 pg (27.0-32.0); Mean Corpuscular Volume 83.4 fL (81-99); Mean Platelet Vol. 8.8 fl (6.2-12.0); Monocyte# 0.47 X10^3/uL; Monocyte% 6.7 % (0-10); NRBC Flagged by Analyzer 0 % (0-5); Neutrophil # 3.51 X10^3/uL (2.7-7.7); Neutrophil % 49.9 % (47-70); Platelet Count 322 K/mm3 (150-450); RBC Distribution Width CV 11.9 % (11.6-14.6); RBC Distribution Width SD 36.1 fl (35.1-43.9); Red Blood Count 4.99 M/mm3 (4.2-5.4)
[2020-04-26 18:14] LABS: Erythrocyte Sedimentation Rate 11 mm/hr (0-30)
[2020-04-26 18:24] LABS: ALB/GLOB Ratio 1.1 RATIO (0.9-2.4); AST(SGOT) 18 U/L (15-37); Alanine Aminotransfer ALT/SGPT 37 U/L (13-56); Alkaline Phosphatase 90 U/L (45-117); Anion Gap 5 (5-15); BUN 12 mg/dL (7-18); BUN/Creat Ratio 18.5 RATIO (10-20); Calcium,Total 8.9 mg/dL (8.5-10.1); Chloride 107 mmol/L (98-107); Creatinine, Serum 0.65 mg/dL (0.55-1.02); EST Glomerular Filtration Rate 102 mL/min (>60); Est Glom Filt Rate - Afr Amer 123 mL/min (>60); Globulin 3.6 g/dL (2.2-4.2); Glucose 87 mg/dL (74-106); Potassium 3.4 mmol/L (3.5-5.1); Protein, Total 7.6 g/dL (6.4-8.2); Sodium Level 139 mmol/L (136-145); T4 Total, Thyroxin 8.3 ug/dL (4.8-13.9); Thyroid Stim Hormone (TSH) 1.81 uIU/mL (0.358-3.74)
== END ==
PROVIDERS: PCP Family Medicine; Referring Provider Dermatology Pediatric Dermatology; Visit Provider Dermatology Pediatric Dermatology
DX: D69.0 Allergic purpura (principal); L29.9 Pruritus, unspecified; D48.5 Neoplasm of uncertain behavior of skin
CPT/HCPCS: 36415; 80053; 84436; 84443; 84480; 85025; 85652; 86038

== ENCOUNTER 2021-08-29 06:28 | Emergency (ER) | payer OTHER, BC, SELFPAY ==
[2021-08-29 06:29] VITALS: BP 153/83; PULSE 97; RESP 16; TEMP 36.7; O2SAT 98; BMI 22.9
--- NOTE | 2021-08-29 07:20 | ED.VIS.LOWEX ---
HPI History of Present Illness Chief Complaint: Fall Narrative Narrative: 56-year-old female presenting for evaluation of left ankle pain. She states she was at work and tripped and rolled her left ankle. The fall was purely mechanical. She states she is ambulatory with antalgic gait. She states that when she fell she scraped her right knee. Her right knee does not hurt very bad. Patient denies head injury or LOC. [facility] Medical History Acute ischemic stroke Degeneration of C5-C6 intervertebral disc Ischemic cerebrovascular accident (CVA) (05/25/19) Urticarial vasculitis Vertigo Home Medications cetirizine 5 mg PO BID 10/29/15 [History Last Taken Unknown] clopidogrel 75 mg PO DAILY #30 tab 05/27/19 [Rx Last Taken Unknown] losartan 25 mg PO DAILY #30 tab 05/27/19 [Rx Last Taken Unknown] atorvastatin 20 mg tablet 20 mg PO DAILY tab 07/06/19 [History Last Taken Unknown] hydroxyzine HCl 25 mg tablet 25 mg PO QHS PRN tab 07/06/19 [History Last Taken Unknown] Allergy/AdvReac Type Severity Reaction Status Date / Time acetaminophen [From Percocet] Allergy Hives Verified 08/29/21 06:33 oxycodone HCl [From Percocet] Allergy Hives Verified 08/29/21 06:33 Sulfa (Sulfonamide Allergy Hives Verified 08/29/21 06:33 Antibiotics) Social History Smoking Status: Never smoker ROS ROS ED Constitutional Constitutional ED: Denies chills or fever(s) Eyes Eyes: Denies blurry vision or change in vision ENT ENT ED: Denies rhinorrhea Cardiovascular Cardiovascular: Denies chest pain or palpitations Respiratory/Chest Respiratory/Chest: Denies cough or dyspnea Gastrointestinal Gastrointestinal: Denies abdominal pain, nausea or vomiting Genitourinary Genitourinary ED: Denies dysuria or hematuria Musculoskeletal Musculoskeletal: Reports other Details: Left ankle pain and swelling ; Denies arthralgias, back pain, myalgias or neck pain Integumentary Reports other Details: Superficial abrasion to right knee Neurologic Neurologic: Denies headache(s) or weakness Psychiatric Psychiatric: Denies anxiety or depression EXAM Physical Exam Const Vital Signs: 08/29/21 06:29 08/29/21 06:35 08/29/21 09:16 Temperature 98.0 F Temperature Source Oral Pulse Rate 97 67 Respiratory Rate 16 15 Respiratory Effort Normal Blood Pressure 153/83 H 112/63 Blood Pressure Mean 106 Pulse Ox 98 99 Oxygen Delivery Method Room Air Room Air Positive well nourished General Appearance ED: NAD HEENT normocephalic and atraumatic Resp normal respiratory effort and clear to auscultation bilaterally Cardio regular rate and regular rhythm Extremity Extremity Narrative: Tenderness to palpation left lateral malleolus. There is slight edema here. No bruising. Left foot nontender to palpation. Left foot neurovascular intact brisk cap refill to all 5 toes. Neuro oriented x3 and CN's II-XII intact bilaterally Sensorium / Orientation: alert Skin Skin Narrative: Superficial abrasion to the right infrapatellar region. Right knee full range of motion. No bony tenderness. The tensor mentation is intact. MDM MDM MDM Narrative Medical decision making narrative: Patient's left ankle is mildly swollen. I obtained an x-ray of the left ankle which on my interpretation shows no acute fracture or subluxation. Patient requested a walking boot. She does not want crutches. She states she will use ibuprofen at home. Patient discharged in stable condition. Impression: 1. Ankle sprain Radiography Diagnostic Testing: Clinical Impression(s) from Imaging Studies Ankle X-Ray 08/29/21 07:40 IMPRESSION: Mild soft tissue swelling. No demonstrated fracture. Electronically Signed: Cesar Michael MD at 8:16 EDT , Discharge Plan Triage Chief Complaint: Fall ED Provider: Mathew Vazquez Dx/Rx/DC Orders Instructions: ED Abrasion, ED Mechanical Fall, ED Ankle Sprain (Adult) Prescriptions: No Action atorvastatin 20 mg tablet 20 mg PO DAILY RF: 0 hydroxyzine HCl 25 mg tablet 25 mg PO QHS PRN (Reason: Anxiety) RF: 0 cetirizine 10 MG tablet 5 mg PO BID RF: 0 clopidogrel 75 MG tablet 75 mg PO DAILY Qty: 30 RF: 0 losartan 25 MG tablet 25 mg PO DAILY Qty: 30 RF: 0 Primary Care Provider: Grant Jacome Referrals: Grant Jacome MD [Primary Care Provider] - [facility] [NON-STAFF] - 3-5 Days Disposition Disposition: Home, Self Care Discharge Date/Time: 08/29/21 09:16
[2021-08-29] MEDS: Ibuprofen 600 MG Tablet PO (07:26)
--- NOTE | 2021-08-29 07:40 | RAD_ITS ---
STUDY: X-RAY - LEFT ANKLE REASON FOR EXAM: Lateral left ankle pain, left ankle injury. TECHNIQUE: 3 view(s) of the ankle. COMPARISON: None. FINDINGS: Normal visualized distal tibia and fibula. Normal medial and lateral malleoli. Normal tibiotalar articulation and ankle mortise. There is a small plantar calcaneal enthesophyte. Otherwise, unremarkable visualized talus and calcaneus. The visualized subtalar, talonavicular, calcaneocuboid and tarsal articulations are normal. There is mild soft tissue swelling overlying the lateral malleolus. RAD/Ankle min 3 Views IMPRESSION: Mild soft tissue swelling. No demonstrated fracture. Electronically Signed: Cesar Michael MD at 8:16 EDT ,
[2021-08-29 09:16] VITALS: BP 112/63; PULSE 67; RESP 15; O2SAT 99
--- NOTE | 2021-08-30 16:05 | ED.RN ---
Pt called and read off rx for naproxen and tizanidine. Looking at pts chart there were no rx and pt would take ibuprofen at home. pt was advised that there is no documentation of rxs and pt stated that she wished he would have offered something. pt states that she will follow up with this week
== END 2021-08-29 09:16 | disposition home or self-care (01) ==
PROVIDERS: Emergency Provider Student in an Organized Health Care Education/Training Program; PCP Family Medicine; Visit Provider Student in an Organized Health Care Education/Training Program
DX: S93.402A Sprain of unspecified ligament of left ankle, initial encounter (principal); W10.9XXA Fall (on) (from) unspecified stairs and steps, initial encounter; Y93.01 Activity, walking, marching and hiking; Y99.0 Civilian activity done for income or pay
CPT/HCPCS: 73610; 99283

== ENCOUNTER 2021-10-14 15:00 | Outpatient (RCR) | payer OTHER, SELFPAY ==
--- NOTE | 2021-09-11 15:31 | HP.PTEVAL_ITS ---
Patient's Visit Information PIEDAD BAH is a 56 year old F referred to Physical Therapy by VIANCA Grant with a diagnosis of SPRAIN OF UNSPECIFIED LIGAMNET OF LEFT ANKLE. Date of Evaluation: 09/11/21 Physical Therapist: Jorge Plunkett, PT, Cert MDT, OCS - Visit Plan Frequency: 2x /Week Duration: 4 Weeks Plan: PT INTERVETIONS ROM/FLEXABLITY CALF,PROPRIOCEPTION ANKLE ,STRENGTH ANKLE ,AND FUNCTIONAL STRENGTHNEING - Subjective This 56 y/o female presents to physical therapy with sprain left ankle. Patient twisted left ankle ~ 2weeks 08/29/21 on steps descending on last 2 steps. Patient bruised right knee and swelling ecchymosis with pain immediately to ER ,x-rays -. Placed in boot . Then went to [facility] repeated x-rays -. No medication . Patient had some numbness with edema decreased. Patient RTW restriction light duty ,mainly sitting. Patient has some pain. 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 Aggravating factors squatting ,kneeling and extended walking. Alleviating factors rest ,ice ,elevated. Patient goal return to prior level of function and job demands. SOCAIL: . VOCATION: [employer] [place]. - Pain Left Ankle Pain Intensity (Out of 10): 8 Pain Intensity Range: 10 Comment: wosrt - Objective POSTURE: normal arch. GAIT: normal deb with boot. PALPATION: tender ATFL,CFL. EDEMA: trimalleor joint line. PROPRIOCEPTION: decreased < 25 sec. AROM: dorsiflexion 5 degrees, plantarflexion 60 degrees, inversion 40 degrees ,eversion 5 degrees. MMT( [employer]) : anteriortibilas 10,3,G-S 10 ,peroneus 4 ,posteriortibilas 6.9. STAIRS: one step at time. SPECIAL TEST: 1+ laxity talar tilt, anterior drawer 1+ - Balance/Special Test Scores Lower Extremity Functional Score: 19 - Goals Goal 1:: Patient to be I with HEP for ankle. Goal Time Frame: 4-6 Weeks Goal 2:: Patient to improve proprioception left ankle compared to right WNL for uneven surfaces. Goal Time Frame: 4-6 Weeks Goal 3:: Patient to improve strength left ankle stabilizers by10 peak force improve function and RTW Goal Time Frame: 4-6 Weeks Goal 4:: Patient improve AROM left ankle WNL to improve stairs Goal Time Frame: 4-6 Weeks Goal 5:: Patient to improve LFES score by 10 points to improve QOL and function Goal Time Frame: 4-6 Weeks Goal 6:: Normalize gait pattern Goal Time Frame: 4-6 Weeks - Rehabilitation Potential Physical Therapy Diagnosis: This 56 y/o patient twisted left ankle descending last 2 steps at work causing pain ,edema, weakness , decrease ROM, proprioception impairs gait and RTW full duty thus will benefit from skilled PT. Rehabilitation Potential: Good - Anticipated Interventions Patient/Client Instruction: Educate patient on: Condition, Plan of Care For the Purpose of:: To decrease pain, To decrease swelling/inflammation, To increase ROM, To increase oxygenation perfusion, To improve muscle performance and motor function, To improve ability to perform ADL's, To increase tolerance to activity/condition/position, To improve performance and independence with ADL's, To improve ability of physical actions for home/community/work/leisure, To improve gait and locomotor functions, To improve health of tissue, To decrease soft tissue restriction, To increase flexibility/ROM, To improve balance, To improve safety with gait Therapeutic Exercise to Include: Strength training, Endurance training, Balance training, Agility training, Flexibilty training, Passive ROM, Active ROM Comment: ANKLE For the Purpose of:: To decrease pain, To decrease swelling/inflammation, To increase ROM, To improve muscle performance and motor function, To improve ability to perform ADL's, To increase tolerance to activity/condition/position, To improve performance and independence with ADL's, To improve ability of physical actions for home/community/work/leisure, To improve health of tissue, To decrease soft tissue restriction, To increase flexibility/ROM, To improve endurance, To improve balance TENS: Yes IF ES: Yes Cryotherapy (ice pack, ice massage): Yes Thermo therapy (hot pack): Yes Ultrasound (thermal/non thermal): Yes For the Purpose of:: To decrease pain, To decrease swelling/inflammation, To improve nutrient delivery to tissue, To increase oxygenation perfusion, To improve health of tissue, To decrease soft tissue restriction Thank you for the opportunity to evaluate your patient. For Medicare and Medicare HMO plans, please review the plan of care and approve it. It will need to be FAXED BACK to us at [phone] for Medicare purposes. For Medicare only, by signing this I certify the plan of care. Please let me know if there are questions or concerns regarding this plan of care. Physician Signature: Date:
--- NOTE | 2022-03-12 09:38 | HP.PT.NRP ---
PIEDAD BAH was seen in my office for initial evaluation on 09/11/21. The following Plan of Care was established for this patient: Initial Frequency: 2x /Week Initial Duration: 4 Weeks Patient/Client Instruction: Educate patient on: Condition, Plan of Care For the Purpose of:: To decrease pain, To decrease swelling/inflammation, To increase ROM, To increase oxygenation perfusion, To improve muscle performance and motor function, To improve ability to perform ADL's, To increase tolerance to activity/condition/position, To improve performance and independence with ADL's, To improve ability of physical actions for home/community/work/leisure, To improve gait and locomotor functions, To improve health of tissue, To decrease soft tissue restriction, To increase flexibility/ROM, To improve balance, To improve safety with gait Therapeutic Exercise to Include: Strength training, Endurance training, Balance training, Agility training, Flexibilty training, Passive ROM, Active ROM For the Purpose of:: To decrease pain, To decrease swelling/inflammation, To increase ROM, To improve muscle performance and motor function, To improve ability to perform ADL's, To increase tolerance to activity/condition/position, To improve performance and independence with ADL's, To improve ability of physical actions for home/community/work/leisure, To improve health of tissue, To decrease soft tissue restriction, To increase flexibility/ROM, To improve endurance, To improve balance TENS: Yes IF ES: Yes Cryotherapy (ice pack, ice massage): Yes Thermo therapy (hot pack): Yes Ultrasound (thermal/non thermal): Yes For the Purpose of:: To decrease pain, To decrease swelling/inflammation, To improve nutrient delivery to tissue, To increase oxygenation perfusion, To improve health of tissue, To decrease soft tissue restriction This patient was last seen in our office . Pertinent comments regarding their Physical therapy will appear below: Patient seen for ankle sprain for ,strengthening ,proprioception and HEP doing well thus d/c At this point I will be discontinuing this patient from physical therapy. I would be happy to see this patient again in the future if found appropriate by the physician. Thank you! Jorge Plunkett, PT, Cert MDT, OCS Balance/Gait/Functional tests - Balance/Special Test Scores Lower Extremity Functional Score: 62
== END 2021-10-14 19:00 | disposition home or self-care (01) ==
LOC: PT 15:00
PROVIDERS: PCP Family Medicine; Referring Provider Physician Assistant; Visit Provider Physician Assistant
DX: S93.402D Sprain of unspecified ligament of left ankle, subsequent encounter (principal); X58.XXXD Exposure to other specified factors, subsequent encounter
CPT/HCPCS: 97014; 97110; 97162; G0283

== ENCOUNTER → 2022-01-23 | Outpatient (CLI) | payer BC, SELFPAY ==
--- NOTE | 2022-01-23 19:21 | STRESSREP ---
Stress Test Report Exercise myocardial perfusion stress test. 56-year-old lady with a history of chest pain and family history of coronary artery disease. Resting EKG demonstrates normal sinus rhythm with a rate of 73 bpm normal intervals are noted resting blood pressures 118/78 mmHg. The patient exercised according to regular Doug protocol for total duration of 9 minutes. The maximum heart rate attained was 144 bpm which was 87% of max impacted heart rate the maximum workload was 10.1 metabolic equivalents. At rest there were no ST or T wave changes noted to suggest ischemia and at peak exercise upsloping ST changes were noted which did not meet the criteria for ischemia. No clinical angina was noted the test was terminated due to the target heart rate being achieved. Myocardial perfusion protocol. 11.8 mCi of technetium 99m sestamibi was injected at rest. The patient exercised according to regular Doug protocol for total duration of 9 minutes. At peak exercise 33.0 mCi of technetium 99m sestamibi was injected stress images were obtained stress and rest images were reconstructed and compared in the short axis vertical long and horizontal long axis. Gated images were also obtained. Perfusion SPECT analysis: Review of the stress images demonstrate normal uptake of tracer noted in all areas of the myocardium. The resting images similarly demonstrate normal uptake of tracer noted in all areas of the myocardium. No areas of reversibility are noted to suggest ischemia and no previous infarct is noted. Gated SPECT analysis: The gated ejection fraction is 75%. Conclusion: Normal exercise myocardial perfusion stress test at a high workload. Good functional capacity. Preserved ejection fraction.
== END | disposition home or self-care (01) ==
LOC: CVS 06:03
PROVIDERS: PCP Family Medicine; Referring Provider Nurse Practitioner Family; Visit Provider Nurse Practitioner Family
DX: R07.9 Chest pain, unspecified (principal); R06.09 Other forms of dyspnea
CPT/HCPCS: 78452; 93017; A9500; A4216

== ENCOUNTER → 2022-03-20 | Outpatient (CLI) | payer BC, SELFPAY | END | disposition home or self-care (01) | LOC: SL 20:06 | PROVIDERS: PCP Family Medicine; Referring Provider Nurse Practitioner Primary Care; Visit Provider Nurse Practitioner Primary Care | DX: G47.33 Obstructive sleep apnea (adult) (pediatric) (principal) | CPT/HCPCS: 95811 ==

== ENCOUNTER → 2022-05-09 | Outpatient (CLI) | payer BC, SELFPAY | END | disposition home or self-care (01) | LOC: SL 07:55 | PROVIDERS: PCP Family Medicine; Visit Provider Nurse Practitioner Primary Care | DX: G47.33 Obstructive sleep apnea (adult) (pediatric) (principal) ==

== ENCOUNTER 2022-07-25 11:42 | Emergency (ER) | payer BC, SELFPAY ==
[2022-07-25 11:44] VITALS: BP 159/69; PULSE 97; RESP 14; TEMP 36.1; O2SAT 97; BMI 23.1
--- NOTE | 2022-07-25 12:40 | EDS_ITS ---
HPI History of Present Illness Chief Complaint: Allergic Reaction Narrative Narrative: 57-year-old female with a history of biopsy-proven urticarial vasculitis who currently sees Dr. Mcnamara in [place] who works in [employer]. 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 She is currently on dapsone, colchicine, Zyrtec, hydroxyzine, prednisone. She states that last night she had worsening hives but these improved. Last night her stated she was wheezing and she went to sleep on the couch because she was being so loud. Patient states that her hives of improved. Her shortness of breath is improved. She is taking all the medication as prescribed. She has not called Dr. Mcnamara. She presents here for evaluation. [facility] Medical History Abrasion, right knee, initial encounter Acute ischemic stroke Degeneration of C5-C6 intervertebral disc Essential hypertension Hyperlipidemia Ischemic cerebrovascular accident (CVA) (05/25/19) Left ankle sprain Sprain of unspecified ligament of left ankle, initial encounter Urticarial vasculitis Vertigo Home Medications cetirizine 10 mg tablet 5 mg PO BID allergies 10/29/15 [History Last Taken Unknown] clopidogrel 75 mg tablet 75 mg PO DAILY #30 tabs 05/27/19 [Rx Last Taken Unknown] losartan 25 mg tablet 25 mg PO DAILY #30 tabs 05/27/19 [Rx Last Taken Unknown] hydroxyzine HCl 25 mg tablet 25 mg PO QHS PRN Anxiety 07/06/19 [History Last Taken Unknown] atorvastatin 20 mg tablet 40 mg PO DAILY 01/03/22 [History Last Taken Unknown] colchicine 0.6 mg tablet 0.6 mg PO BID 01/03/22 [History Last Taken Unknown] dapsone 25 mg tablet 50 mg PO DAILY 01/03/22 [History Last Taken Unknown] famotidine 40 mg tablet 40 mg PO QHS 01/03/22 [History Last Taken Unknown] olopatadine 0.6 % nasal spray 2 spray intranasal BID 01/03/22 [History Last Taken Unknown] omeprazole 20 mg capsule,delayed release 20 mg PO DAILY 01/03/22 [History Last Taken Unknown] epinephrine 0.3 mg/0.3 mL injection, auto-injector (EpiPen 2-Douglas) 0.3 mg (0.3 mL) IM Q4H PRN anaphylaxis #2 ea 07/25/22 [Rx Last Taken Unknown] Allergy/AdvReac Type Severity Reaction Status Date / Time oxycodone HCl [From Percocet] Allergy Hives Verified 07/25/22 11:44 Sulfa (Sulfonamide Allergy Hives Verified 07/25/22 11:44 Antibiotics) Family History Mother Hypertension Diabetes Grandmother Heart disease 50-60s Aunt Heart disease 50-60s Surgical History History of bunionectomy History of carpal tunnel surgery of left wrist History of ear surgery History of hammer toe correction History of hysterectomy History of open reduction and internal fixation (ORIF) procedure History of spinal surgery Social History Smoking Status: Never smoker alcohol intake: current alcohol intake frequency: a few times a month Alcohol type: wine substance use type: does not use caffeine: Yes Type: coffee Number of servings: 2 what type of physical activity do you participate in: walking ROS ROS ED Constitutional Constitutional ED: Denies chills, fever(s) or sweats Eyes Eyes: Denies blurry vision or change in vision ENT ENT ED: Denies ear pain or sore throat Cardiovascular Cardiovascular: Denies chest pain, palpitations or racing heartbeat Respiratory/Chest Respiratory/Chest: Reports dyspnea; Denies cough or sputum Gastrointestinal Gastrointestinal: Denies abdominal pain, constipation, diarrhea, nausea or vomiting Genitourinary Genitourinary ED: Denies dysuria, hematuria or urinary frequency Musculoskeletal Musculoskeletal: Denies arthralgias, myalgias or neck pain Integumentary Reports rash; Denies abscess or Abrasions Neurologic Neurologic: Denies headache(s), paresthesias or weakness Psychiatric Psychiatric: Denies anxiety, depression, suicidal ideation or suicidal thoughts Endocrine Endocrinology: Denies polydipsia or polyuria EXAM Physical Exam Const Vital Signs: 07/25/22 11:44 Temperature 97 F L Temperature Source Temporal Pulse Rate 97 Respiratory Rate 14 Blood Pressure 159/69 H Blood Pressure Mean 99 Pulse Ox 97 Oxygen Delivery Method Room Air Positive well nourished General Appearance ED: NAD HEENT Reports moist mucous membranes Eyes PERRL Chest Wall inspection of chest normal and palpation of chest normal Resp normal respiratory effort and clear to auscultation bilaterally Auscultation: Negative for rales, rhonchi or wheezes Cardio regular rate and regular rhythm GI normal to inspection, nondistended, normoactive bowel sounds Back/Spine no CVA tenderness Extremity normal to inspection Neuro oriented x3 and CN's II-XII intact bilaterally Sensorium / Orientation: alert Motor Exam: strength 5/5 throughout Skin Skin Narrative: Diffuse urticarial rash. MDM MDM MDM Narrative Medical decision making narrative: Patient was seen by her supervisor sandblaster on the . She had normal CBC and BMP at that time. She is on multiple medications for this rash. I will try to reach out to to see if he wants to add anything else. Currently her hives are improved. She does not have any respiratory symptoms. I do not believe she needs repeat blood work. Currently on cetirizine, colchicine, dapsone, Pepcid, hydroxyzine. She also states he is on prednisone. I did make a call to her supervisor sandblaster (Dr. Mcnamara). I was told he was in a meeting. I waited over an hour and then repaged. I was told that he would call back. Patient came frustrated and wanted to leave. I did vp & general counsel her that she is on everything that I could give her from the emergency room. I was waiting for the specialist to call me back. She states she does not feel comfortable in the emergency room wants to go home. I will give her prescription for EpiPen. Return precautions were discussed. If Dr. Mcnamara does call back I will speak to him about her and call the patient. Impression: 1. Vasculitis Lab Data Attestation: I reviewed the patient's lab results. Discharge Plan Triage Chief Complaint: Allergic Reaction ED Provider: Mathew Vazquez Dx/Rx/DC Orders Instructions: Understanding Vasculitis Prescriptions: New epinephrine [EpiPen 2-Douglas] 0.3 mg/0.3 mL auto-injector 0.3 mg IM Q4H PRN (Reason: anaphylaxis) Qty: 2 0RF No Action hydroxyzine HCl 25 mg tablet 25 mg PO QHS PRN (Reason: Anxiety) atorvastatin 20 mg tablet 40 mg PO DAILY colchicine 0.6 mg tablet 0.6 mg PO BID dapsone 25 mg tablet 50 mg PO DAILY Label Comments: Take 2 tablets by mouth once daily. olopatadine 0.6 % spray,non-aerosol 2 spray intranasal BID Label Comments: Use 2 Sprays in each nostril twice daily. omeprazole 20 mg capsule,delayed release(DR/EC) 20 mg PO DAILY Label Comments: Take 1 capsule by mouth daily before breakfast. 1/2 hr before meal. famotidine 40 mg tablet 40 mg PO QHS Label Comments: Take 1 tablet by mouth daily at bedtime. cetirizine 10 MG tablet 5 mg PO BID clopidogrel 75 MG tablet 75 mg PO DAILY Qty: 30 0RF losartan 25 MG tablet 25 mg PO DAILY Qty: 30 0RF Primary Care Provider: Lasha Hartman Referrals: Grant Jacome MD [Non-Staff] - Disposition Disposition: Home, Self Care
== END 2022-07-25 15:24 | disposition home or self-care (01) ==
PROVIDERS: Emergency Provider Student in an Organized Health Care Education/Training Program; PCP Family Medicine; Visit Provider Student in an Organized Health Care Education/Training Program
DX: D69.0 Allergic purpura (principal); I10 Essential (primary) hypertension; E78.5 Hyperlipidemia, unspecified; Z79.02 Long term (current) use of antithrombotics/antiplatelets; Z79.899 Other long term (current) drug therapy; Z86.73 Personal history of transient ischemic attack (TIA), and cerebral infarction without residual deficits
CPT/HCPCS: 99281; 99282

== ENCOUNTER 2024-01-11 09:43 | Inpatient (IN) | payer BC, SELFPAY ==
[2024-01-11] VITALS (11 sets, daily range): BP systolic 125–166; BP diastolic 66–88; PULSE 70–84; RESP 14–22; TEMP 36.1–36.6; O2SAT 86–99; BMI 22.6; BMI 22.5
--- NOTE | 2024-01-11 10:12 | CT_ITS ---
STUDY: CT ABDOMEN AND PELVIS WITH CONTRAST REASON FOR EXAM: Female, 58 years old. LLQ abd pain. Bloody stool. Nausea, vomiting and diarrhea. RADIATION DOSAGE (If Supplied By Facility): CTDIvol = ( 11.62 ) mGy, DLP = ( 584.17 ) mGycm TECHNIQUE: Transaxial images were obtained from the dome of the diaphragm to the symphysis pubis without oral contrast. IV 100mL Isovue-300 was administered. Sagittal and coronal images were reconstructed. Individualized dose optimization techniques were used for this CT. COMPARISON: Comparison is made with prior study December 06, 2016. FINDINGS: The visualized lung bases are unremarkable. The visualized portions of the heart are within normal limits. There is decreased attenuation of the liver consistent with steatosis. There are multiple layering gallstones. Normal spleen. Normal pancreas. Normal bilateral adrenal glands. Normal right kidney. Normal left kidney. There is a small hiatal hernia. Normal small intestine. Diffuse wall thickening of the colon in keeping with a pancolitis. There is non-visualization of the appendix. There is scattered atherosclerotic calcification of the abdominal aorta, without a demonstrated aneurysm. Normal inferior vena cava. Normal retroperitoneum. Normal urinary bladder. Tiny amount of free fluid is seen in the cul-de-sac. The patient is status post hysterectomy. Normal abdominal wall. Prior laminectomy and interpedicular screw fixation at the L4-L5 and L5-S1 levels. CT/Abdomen/Pelvis W IV Cont ONLY IMPRESSION: Patel colitis. Multiple small layering gallstones. Fatty infiltration of the liver. Electronically Signed: Henry Langston MD at 11:33 EDT ,
[2024-01-11] MEDS: 0.9% Normal Saline (1000mL) 1,000 ML 999 ML IV (10:18)
[2024-01-11] MEDS: Ondansetron 4 MG/2 ML Vial IV ×2 (10:19→20:59)
[2024-01-11 10:24] LABS: Absolute Lymphocyte Count 0.88 X10^3/uL (0.83-4.51); Absolute Neutrophil Count 11.9 X10^3/uL (2.0-7.7); Basophil# 0.05 X10^3/uL; Basophil% 0.4 % (0-1); Eosinophil# 0.02 X10^3/uL; Eosinophils% 0.2 % (0-5); Hematocrit 43.5 % (37-47); Hemoglobin 14.4 g/dL (12.0-15.0); Lymphocyte # 0.88 X10^3/ul (0.83-4.51); Lymphocyte % 6.6 % (19-41); Mean Corp Hgb Conc 33.1 g/dL (32-36); Mean Corpuscular Hgb 27.7 pg (27.0-32.0); Mean Corpuscular Volume 83.8 fL (81-99); Mean Platelet Vol. 8.5 fl (6.2-12.0); Monocyte# 0.41 X10^3/uL; Monocyte% 3.1 % (0-10); NRBC Flagged by Analyzer 0 % (0-5); Neutrophil # 11.86 X10^3/uL (2.7-7.7); Neutrophil % 89.1 % (47-70); Platelet Count 290 K/mm3 (150-450); RBC Distribution Width CV 12.5 % (11.6-14.6); RBC Distribution Width SD 37.7 fl (35.1-43.9); Red Blood Count 5.19 M/mm3 (4.2-5.4); White Blood Count 13.3 K/mm3 (4.4-11.0)
--- NOTE | 2024-01-11 10:32 | EX.ED.DYSGE1 ---
HPI History of Present Illness Chief Complaint: Nausea/Vomiting/Diarrhea Narrative Narrative: Patient is a 58-year-old female with a past medical history of CVA, vertigo, hyperlipidemia, hypertension who presented to the emergency department with a chief complaint of abdominal pain, nausea vomiting diarrhea. States that her symptoms started earlier this morning around 2:30 AM. Patient noted that she has had several episodes of diarrhea and vomiting prior to coming here. Patient denies any recent sick contacts. Patient notes that she had a colonoscopy approximately 8 years ago noted that at her last 1 she was told that she needs 1 at 61 which will be 10 years after her previous 1. Patient did note with the last few bowel movements bright red blood denies any history of hemorrhoids. Denies any blood thinning medications. 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 Home Medications ?Medication ?Instructions ?Recorded ?Last Taken ?Type cetirizine 10 mg tablet 5 mg PO BID allergies 10/29/15 Unknown History clopidogrel 75 mg tablet 75 mg PO DAILY #30 tabs 05/27/19 Unknown Rx losartan 25 mg tablet 25 mg PO DAILY #30 tabs 05/27/19 Unknown Rx hydroxyzine HCl 25 mg tablet 25 mg PO QHS PRN Anxiety 07/06/19 Unknown History atorvastatin 20 mg tablet 40 mg PO DAILY 01/03/22 Unknown History colchicine 0.6 mg tablet 0.6 mg PO BID 01/03/22 Unknown History dapsone 25 mg tablet 50 mg PO DAILY 01/03/22 Unknown History olopatadine 0.6 % nasal spray 2 spray intranasal BID 01/03/22 Unknown History Allergy/AdvReac Type Severity Reaction Status Date / Time oxycodone HCl (From Percocet) Allergy Hives Verified 07/25/22 11:44 Sulfa (Sulfonamide Allergy Hives Verified 07/25/22 11:44 Antibiotics) Family History Mother Hypertension Diabetes Grandmother Heart disease 50-60s Aunt Heart disease 50-60s Surgical History History of carpal tunnel surgery of left wrist History of ear surgery History of spinal surgery History of hysterectomy History of hammer toe correction History of bunionectomy History of open reduction and internal fixation (ORIF) procedure Social History (Updated 01/11/24 @ 10:10 by Preethi Gorman) housing: house current occupational status: employed Smoking Status: Never smoker alcohol intake: current alcohol intake frequency: a few times a month Alcohol type: wine substance use type: does not use caffeine: Yes Type: coffee Number of servings: 2 what type of physical activity do you participate in: walking ROS ROS ED ROS Narrative Constitutional: Denies fevers, chills, headaches, dizziness Eyes: Denies change in vision double vision blurry vision Cardiovascular: Denies chest pain or palpitations Respiratory: Denies shortness of breath or coughing Abdomen: Complains of abdominal discomfort, nausea vomiting diarrhea as noted above : Denies any painful urination, hematuria, polyuria Neurological: Denies numbness, weakness, tingling Skin: Denies rashes or lesions EXAM Physical Exam Narrative Exam Narrative: General: Patient lying in bed rest comfortably did not appear to be in acute distress Head: Atraumatic, normocephalic Eyes: PERRL bilaterally, EOMI bilaterally, no conjunctival injection noted Neck: Soft, supple, trach midline Cardiovascular: Regular rate and rhythm no murmurs gallops rubs noted Respiratory: Clear to auscultation bilaterally Abdomen: Soft, nondistended, diffuse tenderness palpation no rebound or guarding on exam, bowel sounds present x 4 Extremities: +5/5 strength noted in the bilateral upper and lower extremities, no pedal edema on exam Neurological: Patient following commands knew that she is at [facility] year is 2023 Skin: Warm, dry, intact Const Vital Signs: 01/11/24 09:44 01/11/24 11:44 01/11/24 12:37 Temperature 97.2 F L 97.6 F L Temperature Source Temporal Pulse Rate 84 80 75 Respiratory Rate 19 H 16 15 Blood Pressure 156/72 H 149/77 H 149/77 H Blood Pressure Mean 100 101 101 Pulse Ox 99 99 99 Oxygen Delivery Method Room Air Room Air 01/11/24 13:10 Temperature 97.6 F L Temperature Source Temporal Pulse Rate 79 Respiratory Rate 17 Blood Pressure 145/83 H Blood Pressure Mean 103 Pulse Ox 98 Oxygen Delivery Method Room Air MDM [facility] MDM Narrative Medical decision making narrative: Patient is a 58-year-old female who presented to the emerged part with chief complaint of nausea vomiting diarrhea and abdominal discomfort. Patient will have a workup performed here on the differential diagnosis includes but not limited to diverticulosis, COVID, viral gastroenteritis, diverticulitis. Once workup is obtained and reviewed she will be reevaluated. Patient be given IV fluids and Zofran patient does not need any pain medication at this point time she states. Patient CBC reviewed and she has a leukocytosis of 13,000, hemoglobin stable 14.4, platelet count normal at 290. Patient sodium normal 138, potassium normal 3.5, creatinine normal at 0.70. Patient AST and ALT were 18 and 22 respectively. Patient's lipase normal at 30, urinalysis did not reveal any evidence of infection. Patient CT abdomen pelvis with IV contrast was reviewed as well and showed pancolitis multiple small layering gallstones fatty infiltration of the liver. Reevaluation the patient and she has had multiple bloody bowel movements here in the emergency department and has intractable abdominal pain with nausea. At this point I do believe the patient will warrant admission to the hospital Did discuss case with hospitalist Dr. Venegas who evaluated the patient at bedside and will accept him for admission. Patient notified is agreeable this plan all question concerns answered. Lab Data Labs: Laboratory Results - last 24 hr 01/11/24 01/11/24 10:06 10:50 WBC 13.3 H RBC 5.19 Hgb 14.4 Hct 43.5 MCV 83.8 MCH 27.7 MCHC 33.1 RDW Std Deviation 37.7 RDW Coeff of Anu 12.5 Plt Count 290 MPV 8.5 Immature Gran % (Auto) 0.600 Neut % (Auto) 89.1 H Lymph % (Auto) 6.6 L [place] % (Auto) 3.1 Eos % (Auto) 0.2 Baso % (Auto) 0.4 Absolute Neuts (auto) 11.9 H Absolute Lymphs (auto) 0.88 Nucleated RBC % 0 Sodium 138 Potassium 3.5 Chloride 108 H Carbon Dioxide 25.0 Anion Gap 5 BUN 11 Creatinine 0.70 Estim Creat Clear Calc 70.13 Est GFR (MDRD) Af Amer 111 Est GFR (MDRD) Non-Af 92 BUN/Creatinine Ratio 15.7 Glucose 123 H Calcium 9.1 Total Bilirubin 0.70 AST 18 ALT 22 Alkaline Phosphatase 80 Total Protein 7.8 Albumin 4.1 Globulin 3.7 Albumin/Globulin Ratio 1.1 Lipase 30 Urine Color Yellow Urine Clarity Sl. Cloudy Urine pH 6.0 Ur Specific [place] 1.015 Urine Protein 30 H Urine Glucose (UA) Normal Urine Ketones 50 H Urine Occult Blood 10 H Urine Nitrite Negative Urine Bilirubin Negative Urine Urobilinogen Normal Ur Leukocyte Esterase 25 H Urine RBC 0 SEEN Urine WBC 0-5 SEEN Ur Squamous Epith Cells 0-5 SEEN Urine Bacteria 1+ Urine Mucus 0 SEEN Radiography Diagnostic Testing: Clinical Impression(s) from Imaging Studies Abdomen/Pelvis CT 01/11/24 10:12 IMPRESSION: Patel colitis. Multiple small layering gallstones. Fatty infiltration of the liver. Electronically Signed: Henry Langston MD at 11:33 EDT , Discharge Plan Triage Chief Complaint: Nausea/Vomiting/Diarrhea Other Complaint: GI Bleed ED Provider: Bert Andres Dx/Rx/DC Orders Prescriptions: No Action hydroxyzine HCl 25 mg tablet 25 mg PO QHS PRN (Reason: Anxiety) atorvastatin 20 mg tablet 40 mg PO DAILY colchicine 0.6 mg tablet 0.6 mg PO BID dapsone 25 mg tablet 50 mg PO DAILY Patient Comments: Take 2 tablets by mouth once daily. olopatadine 0.6 % spray,non-aerosol 2 spray intranasal BID Patient Comments: Use 2 Sprays in each nostril twice daily. cetirizine 10 MG tablet 5 mg PO BID clopidogrel 75 MG tablet 75 mg PO DAILY Qty: 30 0RF losartan 25 MG tablet 25 mg PO DAILY Qty: 30 0RF Primary Care Provider: Lasha Hartman Referrals: Lasha Hartman MD [Primary Care Provider] - Print Language: Nepali
[2024-01-11 10:46] LABS: ALB/GLOB Ratio 1.1 RATIO (0.9-2.4); AST(SGOT) 18 U/L (15-37); Alanine Aminotransfer ALT/SGPT 22 U/L (13-56); Albumin, Serum 4.1 g/dL (3.2-5.0); Alkaline Phosphatase 80 U/L (45-117); Anion Gap 5 (5-15); BUN 11 mg/dL (7-18); BUN/Creat Ratio 15.7 RATIO (10-20); Calcium,Total 9.1 mg/dL (8.5-10.1); Chloride 108 mmol/L (98-107); EST Glomerular Filtration Rate 92 mL/min (>60); Est Glom Filt Rate - Afr Amer 111 mL/min (>60); Estimated Creatinine Clearance 70.13 ml/min; Globulin 3.7 g/dL (2.2-4.2); Glucose 123 mg/dL (74-106); Lipase 30 U/L (13-75); Potassium 3.5 mmol/L (3.5-5.1); Protein, Total 7.8 g/dL (6.4-8.2); Sodium Level 138 mmol/L (136-145)
[2024-01-11 10:55] LABS: Mucous, Urine 0 SEEN /hpf (<or=2+); Red Blood Cells-Urine 0 SEEN /hpf (0-5)
[2024-01-11 10:57] LABS: Color, Urine Yellow (Yellow); Glucose, Dipstick Normal (Normal); Ketone-Dipstick 50 mg/dl (Negative); Leukocyte Esterase-Dipstick 25 /ul (Negative); Nitrite-Dipstick Negative (Negative); Occult Blood-Urine 10 /ul (Negative); Protein-Dipstick 30 mg/dl (Negative); Specific Gravity, Urine 1.015 (1.002-1.030); Urine Bilirubin Dipstick Negative (Negative); Urine Clarity Sl. Cloudy (Clear); Urine Urobilinogen Normal (Normal)
[2024-01-11 11:07] LABS: Bacteria 1+ /hpf (None Seen); Squamous Epithelial Cells - UA 0-5 SEEN /hpf (5-10); White Blood Cells 0-5 SEEN /hpf (0-5)
[2024-01-11] MEDS: Metoclopramide 10 MG/2 ML Vial 5 MG IV (11:33)
--- NOTE | 2024-01-11 11:45 | ED.RN ---
pt notified this nurse she had passed blood with clots in attempt to have a BM. this nurse notified Dr. Bert Andres DO. he had no further orders at this point.
[2024-01-11] MEDS: Morphine 4 MG/ML Syringe IV (13:32)
--- NOTE | 2024-01-11 14:38 | PCM.HP.STD ---
HPI - General General Date of Admission: 01/11/24 Date of Service: 01/11/24 Chief Complaint: Nausea, vomiting, bloody diarrhea HPI Narrative PIEDAD BAH, is a 58 F who presents to the emergency room at [facility] with complaints of bloody diarrhea, abdominal cramping, and nausea and vomiting which started approximately 2 AM this morning. Patient denies any previous symptoms which are similar. Patient stated that when the symptoms began she had diarrhea and then mostly clots. Labs obtained in the emergency room showed an elevated white blood cell count at 13.3, chemistry profile was abnormal for glucose of 123, urinalysis showed +1 bacteria. Patient had a CT of the abdomen and pelvis which showed diffuse thickening of the colon in keeping with diffuse colitis. Patient also had multiple small layering gallstones and fatty infiltration of the liver. Patient will be admitted to [place] [id number], she will be started on IV antibiotics and stool will be obtained for enteric pathogens and C. difficile. Fluids will be administered, I will keep her on a liquid diet. 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 Home Medications ?Medication ?Instructions ?Recorded ?Last Taken ?Type cetirizine 10 mg tablet 5 mg PO BID allergies 10/29/15 Unknown History clopidogrel 75 mg tablet 75 mg PO DAILY #30 tabs 05/27/19 Unknown Rx losartan 25 mg tablet 25 mg PO DAILY #30 tabs 05/27/19 Unknown Rx hydroxyzine HCl 25 mg tablet 25 mg PO QHS PRN Anxiety 07/06/19 Unknown History atorvastatin 20 mg tablet 40 mg PO DAILY 01/03/22 Unknown History colchicine 0.6 mg tablet 0.6 mg PO BID 01/03/22 Unknown History dapsone 25 mg tablet 50 mg PO DAILY 01/03/22 Unknown History olopatadine 0.6 % nasal spray 2 spray intranasal BID 01/03/22 Unknown History Allergy/AdvReac Type Severity Reaction Status Date / Time oxycodone HCl (From Percocet) Allergy Hives Verified 02/17/23 11:44 Sulfa (Sulfonamide Allergy Hives Verified 07/25/22 11:44 Antibiotics) Family History Mother Hypertension Diabetes Grandmother Heart disease 50-60s Aunt Heart disease 50-60s Surgical History History of carpal tunnel surgery of left wrist History of ear surgery History of spinal surgery History of hysterectomy History of hammer toe correction History of bunionectomy History of open reduction and internal fixation (ORIF) procedure Social History (Updated 01/11/24 @ 10:10 by Preethi Gorman) housing: house current occupational status: employed Smoking Status: Never smoker alcohol intake: current alcohol intake frequency: a few times a month Alcohol type: wine substance use type: does not use caffeine: Yes Type: coffee Number of servings: 2 what type of physical activity do you participate in: walking ROS Constitutional Constitutional: Denies anorexia, change in weight, fever(s), night sweats or weakness Eyes Eyes: Denies blurry vision, change in vision, discharge from eye(s) or eye pain Cardiovascular Cardiovascular: Denies chest pain, claudication, edema or palpitations Respiratory/Chest Respiratory/Chest: Denies cough, hemoptysis, shortness of breath at rest or shortness of breath with exertion Gastrointestinal Gastrointestinal: Reports abdominal pain, diarrhea, nausea and vomiting; Denies constipation, hematemesis, hematochezia or melena Genitourinary Genitourinary: Denies dysuria, hematuria, urinary frequency, urinary hesitancy, urinary incontinence or urinary urgency Musculoskeletal Musculoskeletal: Denies back pain, joint pain, joint stiffness, joint swelling, myalgias or neck pain Neurologic Neurologic: Denies abnormal gait, abnormal speech, dizziness, focal weakness, headache(s), loss of vision, numbness, other visual disturbances, paresthesias, syncope or tingling Psychiatric Psychiatric: Denies anxiety, cognitive impairment, depression, irritability, mood swings or suicidal ideation Endocrine Endocrinology: Denies change in body appearance, cold intolerance, excessive sweating, heat intolerance, polydipsia or polyuria Hematologic/Lymphatic Hematologic/Lymphatic: Denies none, anemia, easy bleeding, easy bruising or lymphadenopathy Allergic/Immunologic Allergic/Immunologic: Denies rhinitis, urticaria, eczemia or asthma Vital Signs Vital Signs Vital Signs: 01/11/24 09:44 01/11/24 11:44 01/11/24 12:37 Temperature 97.2 F L 97.6 F L Temperature Source Temporal Pulse Rate 84 80 75 Respiratory Rate 19 H 16 15 Blood Pressure 156/72 H 149/77 H 149/77 H Blood Pressure Mean 100 101 101 Pulse Ox 99 99 99 Oxygen Delivery Method Room Air Room Air 01/11/24 13:10 01/11/24 14:10 Temperature 97.6 F L 98 F Temperature Source Temporal Temporal Pulse Rate 79 78 Respiratory Rate 17 18 Blood Pressure 145/83 H 136/88 H Blood Pressure Mean 103 104 Pulse Ox 98 98 Oxygen Delivery Method Room Air Room Air Weight Weight: 55.973 kg Body Mass Index (BMI) 22.6 Physical Exam Const alert, oriented x3, no apparent distress and healthy appearing General Appearance: cooperative, well kempt and well developed Orientation / Consciousness: awake, oriented to person, oriented to place and oriented to time HEENT normocephalic and moist oral mucous membranes Eyes PERRL, EOMs intact bilaterally and conjunctivae normal Neck supple, no JVD, thyroid normal and no carotid bruits General: trachea midline Resp normal respiratory effort and clear to auscultation bilaterally Auscultation: Negative for rales, rhonchi or wheezes Cardio regular rate, regular rhythm, no murmurs, no rub and no gallops GI normal to inspection, nondistended, normoactive bowel sounds, soft to palpation, non-tender and non-distended Extremity no clubbing, cyanosis or edema Skin no rashes or lesions noted General Skin Exam: no breakdown Neuro oriented x3, CN's II-XII intact bilaterally, no focal motor deficits and no sensory deficits noted Sensorium / Orientation: awake and alert Speech: speech normal Psych affect normal Results Lab / Micro Data 01/11/24 10:06 01/11/24 10:06 Labs: Laboratory Results - last 24 hr 01/11/24 10:06: WBC 13.3 H, RBC 5.19, Hgb 14.4, Hct 43.5, MCV 83.8, MCH 27.7, MCHC 33.1, RDW Std Deviation 37.7, RDW Coeff of Anu 12.5, Plt Count 290, MPV 8.5, Immature Gran % (Auto) 0.600, Neut % (Auto) 89.1 H, Lymph % (Auto) 6.6 L, [place] % (Auto) 3.1, Eos % (Auto) 0.2, Baso % (Auto) 0.4, Absolute Neuts (auto) 11.9 H, Absolute Lymphs (auto) 0.88, Nucleated RBC % 0, Sodium 138, Potassium 3.5, Chloride 108 H, Carbon Dioxide 25.0, Anion Gap 5, BUN 11, Creatinine 0.70, Estim Creat Clear Calc 70.13, Est GFR (MDRD) Af Amer 111, Est GFR (MDRD) Non-Af 92, BUN/Creatinine Ratio 15.7, Glucose 123 H, Calcium 9.1, Total Bilirubin 0.70, AST 18, ALT 22, Alkaline Phosphatase 80, Total Protein 7.8, Albumin 4.1, Globulin 3.7, Albumin/Globulin Ratio 1.1, Lipase 30 01/11/24 10:50: Urine Color Yellow, Urine Clarity Sl. Cloudy, Urine pH 6.0, Ur Specific [place] 1.015, Urine Protein 30 H, Urine Glucose (UA) Normal, Urine Ketones 50 H, Urine Occult Blood 10 H, Urine Nitrite Negative, Urine Bilirubin Negative, Urine Urobilinogen Normal, Ur Leukocyte Esterase 25 H, Urine RBC 0 SEEN, Urine WBC 0-5 SEEN, Ur Squamous Epith Cells 0-5 SEEN, Urine Bacteria 1+, Urine Mucus 0 SEEN Micro: Microbiology 01/11/24 10:17 Mucosa - Nose SARS-CoV-2, Influenza & RSV (PCR) - Final Imaging Radiology Impression Abdomen/Pelvis CT 01/11/24 10:12 IMPRESSION: Patel colitis. Multiple small layering gallstones. Fatty infiltration of the liver. Electronically Signed: Henry Langston MD at 11:33 EDT , Assessment & Plan Assessment/Plan (1) Colitis: PLAN: Plan 1. Pancolitis-infectious versus ischemic-patient will be admitted to [facility] 3, she will remain on liquid diet, IV Flagyl and Cipro will be administered, stool for enteric pathogens and C. difficile was ordered. #2 essential hypertension-patient will remain on her outpatient medications, they will be adjusted if necessary #3 cerebrovascular disease-patient has a history of a CVA in 2019, she is on Plavix #4 hyperlipidemia-patient is on a statin Total clinical time spent by myself addressing the patient's medical issues, reviewing all of her data, and collaborating with patient's care team: 55 minutes Charges/Coding Visit Charges Inpatient E&M: 96085 Init Hosp L2
[2024-01-11] MEDS: HYDROcodone Bitartrate/Apap 5/325 Tablet PO (16:33)
[2024-01-11] MEDS: Ciprofloxacin 400 MG/200 ML BAG 200 MG IV ×2 (16:33→20:33)
[2024-01-11] MEDS: 0.9% Normal Saline (1000mL) 1,000 ML 100 ML IV (16:34)
[2024-01-11] MEDS: metroNIDAZOLE 500 MG/100 ML BAG 100 MG IV ×2 (17:43→22:23)
[2024-01-11] MEDS: Loratadine 10 MG Tablet 5 MG PO (20:52)
[2024-01-11] MEDS: Colchicine 0.6 MG TABLET PO (20:52)
[2024-01-11] MEDS: Morphine 2 MG/ML Syringe IV (20:58)
[2024-01-12] VITALS: O2SAT 95
[2024-01-12] MEDS: Morphine 2 MG/ML Syringe IV (02:07)
[2024-01-12 02:11] VITALS: BP 124/76; PULSE 76; RESP 17; TEMP 36.1; O2SAT 94
[2024-01-12] MEDS: 0.9% Normal Saline (1000mL) 1,000 ML 100 ML IV (04:46)
[2024-01-12 05:00] LABS: Absolute Neutrophil Count 8.5 X10^3/uL (2.0-7.7); Basophil# 0.05 X10^3/uL; Basophil% 0.4 % (0-1); Eosinophil# 0.31 X10^3/uL; Eosinophils% 2.7 % (0-5); Hemoglobin 11.5 g/dL (12.0-15.0); Lymphocyte % 15.9 % (19-41); Mean Corp Hgb Conc 31.9 g/dL (32-36); Mean Corpuscular Hgb 27.4 pg (27.0-32.0); Mean Corpuscular Volume 85.9 fL (81-99); Mean Platelet Vol. 8.7 fl (6.2-12.0); Monocyte# 0.67 X10^3/uL; Monocyte% 5.9 % (0-10); NRBC Flagged by Analyzer 0 % (0-5); Neutrophil # 8.48 X10^3/uL (2.7-7.7); Neutrophil % 74.7 % (47-70); Platelet Count 225 K/mm3 (150-450); RBC Distribution Width CV 12.7 % (11.6-14.6); RBC Distribution Width SD 39.8 fl (35.1-43.9); Red Blood Count 4.19 M/mm3 (4.2-5.4); White Blood Count 11.4 K/mm3 (4.4-11.0)
[2024-01-12] MEDS: metroNIDAZOLE 500 MG/100 ML BAG 100 MG IV ×3 (05:39→22:35)
[2024-01-12 06:06] LABS: ALB/GLOB Ratio 1.1 RATIO (0.9-2.4); AST(SGOT) 14 U/L (15-37); Alanine Aminotransfer ALT/SGPT 15 U/L (13-56); Alkaline Phosphatase 62 U/L (45-117); Anion Gap 4 (5-15); BUN 5 mg/dL (7-18); BUN/Creat Ratio 7.9 RATIO (10-20); Calcium,Total 7.7 mg/dL (8.5-10.1); Chloride 109 mmol/L (98-107); Creatinine, Serum 0.63 mg/dL (0.55-1.02); EST Glomerular Filtration Rate 103 mL/min (>60); Est Glom Filt Rate - Afr Amer 125 mL/min (>60); Estimated Creatinine Clearance 77.92 ml/min; Globulin 2.7 g/dL (2.2-4.2); Glucose 106 mg/dL (74-106); Potassium 3.1 mmol/L (3.5-5.1); Protein, Total 5.7 g/dL (6.4-8.2); Sodium Level 139 mmol/L (136-145)
[2024-01-12 07:12] VITALS: O2SAT 97
[2024-01-12] MEDS: HYDROcodone Bitartrate/Apap 5/325 Tablet PO ×2 (08:58→13:21)
[2024-01-12] MEDS: Potassium Chloride Oral Tablet 20 MEQ 40 MEQ PO (08:58)
[2024-01-12] MEDS: Ciprofloxacin 400 MG/200 ML BAG 200 MG IV ×2 (09:00→21:12)
[2024-01-12] MEDS: Azelastine HCl NASAL.SRY 2 SPRAY NASAL (09:00)
[2024-01-12] MEDS: Atorvastatin Calcium 40 MG Tablet PO (09:01)
[2024-01-12] MEDS: Clopidogrel Bisulfate 75 MG Tablet PO (09:02)
[2024-01-12] MEDS: Loratadine 10 MG Tablet 5 MG PO ×2 (09:02→22:37)
[2024-01-12] MEDS: Colchicine 0.6 MG TABLET PO ×2 (09:02→22:37)
[2024-01-12] MEDS: Losartan Potassium 25 MG Tablet PO (09:02)
[2024-01-12 09:29] LABS: Vitamin B12 257 pg/mL (211-911)
[2024-01-12 09:37] VITALS: O2SAT 95
[2024-01-12 09:46] LABS: Ferritin 73 ng/mL (8-252); Iron 29 ug/dL (50-170); Iron Binding Capacity,Total 246 ug/dL (250-450); Magnesium 2.1 mg/dL (1.6-2.6); PERCENT IRON SATURATION 11.8 % (15.0-55.0)
--- NOTE | 2024-01-12 09:52 | PN.HOSP_ITS ---
Reason for Visit Reason for Visit: Diagnoses Noninfective gastroenteritis and colitis, unspecified (01/11/24) Subjective Subjective Saw patient at bedside this morning. Patient was mildly fatigued appearing but otherwise sitting up comfortably in bed, conversing normally, in no acute distress. Patient states that she has not had any further episodes of diarrhea since arriving to the ED, has not been able to provide a stool sample yet. She has very mild abdominal pain currently, improved from admission. No episodes of nausea or vomiting since admission. She does feel somewhat dry and dehydrated currently. She does report having some appetite and has been tolerating full liquid diet well. Denies any fevers or chills. No other acute concerns at this time. Objective Data Objective Data Vital Signs: Vital Signs Temp Pulse Resp BP Pulse Ox O2 Del Method O2 Flow Rate 97 F L 76 17 124/76 H 95 Room Air 2 01/12/24 02:11 01/12/24 02:11 01/12/24 02:11 01/12/24 02:11 01/12/24 09:37 01/12/24 09:37 01/12/24 07:12 Oxygen Flow Rate (L/min) 2 Oxygen Delivery Method Room Air Weight: 55.868 kg Body Mass Index (BMI) 22.5 Intake & Output: Intake and Output for Last 24 Hours 01/10/24 01/11/24 01/12/24 23:59 23:59 23:59 Intake Total 1639 / 1964 2375 / 2375 Balance 1639 2375 / 2375 Lab / Micro Data 01/12/24 04:30 01/12/24 04:30 Labs: Laboratory Results - last 24 hr 01/11/24 10:06: WBC 13.3 H, RBC 5.19, Hgb 14.4, Hct 43.5, MCV 83.8, MCH 27.7, MCHC 33.1, RDW Std Deviation 37.7, RDW Coeff of Anu 12.5, Plt Count 290, MPV 8.5, Immature Gran % (Auto) 0.600, Neut % (Auto) 89.1 H, Lymph % (Auto) 6.6 L, [place] % (Auto) 3.1, Eos % (Auto) 0.2, Baso % (Auto) 0.4, Absolute Neuts (auto) 11.9 H, Absolute Lymphs (auto) 0.88, Nucleated RBC % 0, Sodium 138, Potassium 3.5, Chloride 108 H, Carbon Dioxide 25.0, Anion Gap 5, BUN 11, Creatinine 0.70, Estim Creat Clear Calc 70.13, Est GFR (MDRD) Af Amer 111, Est GFR (MDRD) Non-Af 92, BUN/Creatinine Ratio 15.7, Glucose 123 H, Calcium 9.1, Total Bilirubin 0.70, AST 18, ALT 22, Alkaline Phosphatase 80, Total Protein 7.8, Albumin 4.1, Globulin 3.7, Albumin/Globulin Ratio 1.1, Lipase 30 01/11/24 10:50: Urine Color Yellow, Urine Clarity Sl. Cloudy, Urine pH 6.0, Ur Specific [place] 1.015, Urine Protein 30 H, Urine Glucose (UA) Normal, Urine Ketones 50 H, Urine Occult Blood 10 H, Urine Nitrite Negative, Urine Bilirubin Negative, Urine Urobilinogen Normal, Ur Leukocyte Esterase 25 H, Urine RBC 0 SEEN, Urine WBC 0-5 SEEN, Ur Squamous Epith Cells 0-5 SEEN, Urine Bacteria 1+, Urine Mucus 0 SEEN 01/12/24 04:30: WBC 11.4 H, RBC 4.19 L, Hgb 11.5 L, Hct 36.0 L, MCV 85.9, MCH 27.4, MCHC 31.9 L, RDW Std Deviation 39.8, RDW Coeff of Anu 12.7, Plt Count 225, MPV 8.7, Immature Gran % (Auto) 0.400, Neut % (Auto) 74.7 H, Lymph % (Auto) 15.9 L, [place] % (Auto) 5.9, Eos % (Auto) 2.7, Baso % (Auto) 0.4, Absolute Neuts (auto) 8.5 H, Absolute Lymphs (auto) 1.80, Nucleated RBC % 0, Sodium 139, Potassium 3.1 L, Chloride 109 H, Carbon Dioxide 26.0, Anion Gap 4 L, BUN 5 L, Creatinine 0.63, Estim Creat Clear Calc 77.92, Est GFR (MDRD) Af Amer 125, Est GFR (MDRD) Non-Af 103, BUN/Creatinine Ratio 7.9 L, Glucose 106, Calcium 7.7 L, Total Bilirubin 0.60, AST 14 L, ALT 15, Alkaline Phosphatase 62, Total Protein 5.7 L, Albumin 3.0 L, Globulin 2.7, Albumin/Globulin Ratio 1.1 01/12/24 08:57: Phosphorus 2.0 L, Magnesium 2.1, Iron 29 L, TIBC 246 L, Iron Saturation 11.8 L, Ferritin 73, Vitamin B12 257, Folate 11.60 Micro: Microbiology 01/11/24 10:17 Mucosa - Nose SARS-CoV-2, Influenza & RSV (PCR) - Final Radiography Diagnostic Testing: Radiology Impression Abdomen/Pelvis CT 01/11/24 10:12 IMPRESSION: Patel colitis. Multiple small layering gallstones. Fatty infiltration of the liver. Electronically Signed: Henry Langston MD at 11:33 EDT , Physical Exam Const alert, oriented x3, no apparent distress and average body habitus Constitutional Narrative: Pleasant middle-age female, mildly fatigued appearing, otherwise sitting up comfortably in bed, conversing normally, in no acute distress. General Appearance: cooperative and comfortable HEENT normocephalic, head/scalp atraumatic, hearing grossly normal bilaterally and nasal mucous membranes and turbinates normal Eyes PERRL, EOMs intact bilaterally and conjunctivae normal Neck full ROM Chest inspection of chest normal Resp normal respiratory effort, normal air movement, no use of accessory muscles and clear to auscultation bilaterally Cardio regular rate, regular rhythm, no murmurs and peripheral pulses 2+ throughout GI normal to inspection, nondistended, normoactive bowel sounds, soft to palpation, non-tender and non-distended Back/Spine normal ROM Extremity normal to inspection, full ROM and no pedal edema Skin no rashes or lesions noted Neuro no focal motor deficits and no sensory deficits noted Speech: speech normal Psych mental status grossly normal Assessment & Plan Assessment/Plan (1) Colitis: (2) Anemia: (3) BRBPR (bright red blood per rectum): PLAN: Plan Patient is a 58-year-old female who presented [facility] ED on 01/11/2024 with acute onset bloody diarrhea, abdominal cramping, nausea and vomiting. 1. Pancolitis ? Highest suspicion is for infectious etiology possibly due to food poisoning. No prior history of episodes like this, no history of autoimmune disease, normal colonoscopy around age 51. CT abdomen pelvis with IV contrast on admit showed pancolitis. Significant diarrhea and nausea/vomiting prior to admission but no further episodes of diarrhea or vomiting since admission. Unable to collect stool sample to this point. Will continue IV ciprofloxacin and Flagyl for now. Advanced patient to regular diet on 01/11, will monitor how she tolerates this. If continues to improve, likely discharge home in the next 1 to 2 days on p.o. antibiotics. 2. Bright red blood per rectum, mild acute anemia ? Presumed secondary to pancolitis as noted above. Hemoglobin 14.4 on admit, down trended to 11.5 on hospital day 2. Likely some degree of hemoconcentration on admit labs as well. Iron studies show a degree of iron deficiency anemia, ferritin 73. Continue to monitor CBC daily. Will plan to start p.o. iron supplement on discharge and can consider IV iron supplementation in outpatient setting as needed. 3. Cholelithiasis, fatty liver disease ? CT abdomen pelvis on admit showed multiple small layering gallstones and fatty infiltration of the liver. LFTs normal, no RUQ pain or discomfort, incidental finding. No need for further management at this time. Chronic medical conditions: ? History of CVA, hypertension, hyperlipidemia: Continue home Plavix, statin and losartan. ? History of gout: Continue home colchicine. ? Allergies: Continue home loratadine. DVT prophylaxis: SCDs CODE STATUS: Full code, verified Expected disposition: Home, 1 to 2 days Total clinical time spent by myself addressing the patient's medical issues, reviewing all the data, and collaborating with patient's care team: 35 minutes. Charges/Coding Visit Charges Inpatient E&M: 45359 Subs Hosp L2
[2024-01-12] MEDS: Ondansetron 4 MG/2 ML Vial IV (13:22)
--- NOTE | 2024-01-12 14:24 | CASEMGMT ---
CELINA PADILLA Assessment Face to Face with patient for initial transition planning/care coordination assessment. CELINA PADILLA introduced self and role at [facility], pt voices understanding. Pt is A&Ox4 and is resting comfortably in bed and is calm. Care providers, pharmacy, and demographics verified. Admitting dx: ABD Pain, Bloody Bowel Movements LACE Strata: 1 PCP: Devan Specialists: Dr. Schulz - JOHN PAUL Delacruz (Vascular) Preferred Pharmacy: [facility] Insurance: ANTHEM Prescription Benefit: Yes LNOK: Isaias Anderson (H) Living Arrangements: Pt lives with her and 18 y/o Niece in a split level home with 7 steps to manage inside the house and 3 steps to enter the home ADLs/IADLs: Ind. 6-click is 24. Transportation:Self, , denies concerns DME: CPAP at home but does not use. Denies all other DME uses or needs HHC/SNF: States HHC Hx through [facility] x 7 years ago for MRSA infection. denies SNF HX Pt?s goal: Home Plan: Home with family once medically ready. Pt is independent and denies the need for HHC, OP Tx, or SNF. CM to follow. Katie Matamoros RN, CM
[2024-01-12 17:02] VITALS: BP 114/73; PULSE 92; RESP 18; TEMP 36.7; O2SAT 94
[2024-01-12 21:08] VITALS: BP 118/68; PULSE 64; RESP 18; TEMP 37; O2SAT 93
[2024-01-12] MEDS: 0.9% Saline Lock 10 ML Syringe IV (21:11)
[2024-01-12] MEDS: 0.9% Normal Saline (250mL Bag) 250 ML 15 ML IV (21:12)
[2024-01-13 03:02] VITALS: BP 113/60; PULSE 80; RESP 16; TEMP 36.7; O2SAT 94
[2024-01-13] MEDS: HYDROcodone Bitartrate/Apap 5/325 Tablet PO ×3 (03:03→23:52)
[2024-01-13 05:06] LABS: Hematocrit 35.6 % (37-47); Hemoglobin 11.3 g/dL (12.0-15.0); Mean Corp Hgb Conc 31.7 g/dL (32-36); Mean Corpuscular Hgb 27.7 pg (27.0-32.0); Mean Corpuscular Volume 87.3 fL (81-99); Mean Platelet Vol. 8.4 fl (6.2-12.0); Platelet Count 232 K/mm3 (150-450); RBC Distribution Width CV 12.5 % (11.6-14.6); RBC Distribution Width SD 39.9 fl (35.1-43.9); Red Blood Count 4.08 M/mm3 (4.2-5.4); White Blood Count 11.2 K/mm3 (4.4-11.0)
[2024-01-13 05:33] LABS: Anion Gap 5 (5-15); BUN 4 mg/dL (7-18); BUN/Creat Ratio 6.7 RATIO (10-20); Calcium,Total 8.2 mg/dL (8.5-10.1); Chloride 107 mmol/L (98-107); EST Glomerular Filtration Rate 109 mL/min (>60); Est Glom Filt Rate - Afr Amer 132 mL/min (>60); Estimated Creatinine Clearance 81.82 ml/min; Glucose 101 mg/dL (74-106); Potassium 3.4 mmol/L (3.5-5.1); Sodium Level 140 mmol/L (136-145)
[2024-01-13] MEDS: metroNIDAZOLE 500 MG/100 ML BAG 100 MG IV (06:01)
[2024-01-13 07:44] VITALS: O2SAT 96
[2024-01-13 10:27] VITALS: BP 106/50; PULSE 99; RESP 18; TEMP 36.7; O2SAT 96
[2024-01-13] MEDS: Na Biphos/Potassium Phosphate PACKET 1 PACKET PO ×3 (10:37→22:38)
[2024-01-13] MEDS: Loratadine 10 MG Tablet 5 MG PO ×2 (10:38→22:39)
[2024-01-13] MEDS: Potassium Chloride Oral Tablet 20 MEQ 40 MEQ PO (10:38)
[2024-01-13] MEDS: Ciprofloxacin 500 MG Tablet PO ×2 (10:38→22:40)
[2024-01-13] MEDS: Atorvastatin Calcium 40 MG Tablet PO (10:39)
[2024-01-13] MEDS: Losartan Potassium 25 MG Tablet PO (10:39)
[2024-01-13] MEDS: Colchicine 0.6 MG TABLET PO ×2 (10:39→22:40)
[2024-01-13] MEDS: Clopidogrel Bisulfate 75 MG Tablet PO (10:39)
--- NOTE | 2024-01-13 12:28 | PCM.PN.HOSP ---
Reason for Visit Reason for Visit: Diagnoses Anemia, unspecified (01/11/24) Noninfective gastroenteritis and colitis, unspecified (01/11/24) Hemorrhage of anus and rectum (01/11/24) Subjective Subjective Patient was escalated to regular diet yesterday and stated she unfortunately had some worsening abdominal cramping and pain with food intake. She has not eaten much of anything at this morning. She did also have several loose bowel movements yesterday afternoon and evening. She denies any fevers or chills. Otherwise denies any acute concerns today. Objective Data Objective Data Vital Signs: Vital Signs Temp Pulse Resp BP Pulse Ox O2 Del Method O2 Flow Rate 98.1 F 99 18 106/50 L 96 Room Air 2 01/13/24 10:27 01/13/24 10:27 01/13/24 10:27 01/13/24 10:27 01/13/24 10:27 01/13/24 10:32 01/13/24 07:44 Oxygen Flow Rate (L/min) 2 Oxygen Delivery Method Room Air Weight: 55.868 kg Body Mass Index (BMI) 22.5 Intake & Output: Intake and Output for Last 24 Hours 01/11/24 01/12/24 01/13/24 23:59 23:59 23:59 Intake Total 1639 / 1965 3525.75 / 3525.75 396.75 / 396.75 Output Total 100 / 100 Balance 1639 / 1965 3425.75 / 3425.75 396.75 / 396.75 Lab / Micro Data 01/13/24 04:30 01/13/24 04:30 Labs: Laboratory Results - last 24 hr 01/13/24 04:30: WBC 11.2 H, RBC 4.08 L, Hgb 11.3 L, Hct 35.6 L, MCV 87.3, MCH 27.7, MCHC 31.7 L, RDW Std Deviation 39.9, RDW Coeff of Anu 12.5, Plt Count 232, MPV 8.4, Sodium 140, Potassium 3.4 L, Chloride 107, Carbon Dioxide 28.0, Anion Gap 5, BUN 4 L, Creatinine 0.60, Estim Creat Clear Calc 81.82, Est GFR (MDRD) Af Amer 132, Est GFR (MDRD) Non-Af 109, BUN/Creatinine Ratio 6.7 L, Glucose 101, Calcium 8.2 L Micro: Microbiology 01/12/24 22:30 Stool Enteric Bacteriology - Final 01/12/24 22:30 Stool Clostridioides difficile (PCR) - Final 01/12/24 22:30 Stool Stool Lactoferrin - Final 01/11/24 10:17 Mucosa - Nose SARS-CoV-2, Influenza & RSV (PCR) - Final Physical Exam Const alert, oriented x3, no apparent distress and average body habitus Constitutional Narrative: Pleasant middle-age female, mildly fatigued appearing, otherwise sitting up comfortably in bed, conversing normally, in no acute distress. Stable. General Appearance: cooperative and comfortable HEENT normocephalic, head/scalp atraumatic, hearing grossly normal bilaterally and nasal mucous membranes and turbinates normal Eyes PERRL, EOMs intact bilaterally and conjunctivae normal Neck full ROM Chest inspection of chest normal Resp normal respiratory effort, normal air movement, no use of accessory muscles and clear to auscultation bilaterally Cardio regular rate, regular rhythm, no murmurs and peripheral pulses 2+ throughout GI GI Narrative: Mild tenderness to palpation diffusely. Abdomen otherwise soft and nondistended with normal bowel sounds. Back/Spine normal ROM Extremity normal to inspection, full ROM and no pedal edema Skin no rashes or lesions noted Neuro no focal motor deficits and no sensory deficits noted Speech: speech normal Psych mental status grossly normal Assessment & Plan Assessment/Plan (1) Colitis: (2) Anemia: (3) BRBPR (bright red blood per rectum): PLAN: Plan Patient is a 58-year-old female who presented [facility] ED on 01/11/2024 with acute onset bloody diarrhea, abdominal cramping, nausea and vomiting. 1. Pancolitis ? Highest suspicion on admit was for infectious etiology possibly due to food poisoning, as she had no prior history of episodes like this, no history of autoimmune disease, and a normal colonoscopy around age 51. However, stool PCR panel and C. difficile negative on 01/12. CT abdomen pelvis with IV contrast on admit showed pancolitis. Had significant diarrhea and nausea/vomiting prior to admission that ceased on morning of 01/11, but on escalating to regular diet on afternoon of 01/11 she had recurrence of loose bowel movements. Stool lactoferrin negative, calprotectin pending. Will continue Cipro and Flagyl for now. GI consulted for further recommendations. 2. Bright red blood per rectum, mild acute anemia ? Presumed secondary to pancolitis as noted above. Hemoglobin 14.4 on admit, down trended to 11.5 on hospital day 2. Remaining stable, most recent hemoglobin 11.3 on 01/12. Likely some degree of hemoconcentration on admit labs as well. Iron studies show a degree of iron deficiency anemia, ferritin 73. Continue to monitor CBC daily. Will plan to start p.o. iron supplement on discharge and can consider IV iron supplementation in outpatient setting as needed. 3. Cholelithiasis, fatty liver disease ? CT abdomen pelvis on admit showed multiple small layering gallstones and fatty infiltration of the liver. LFTs normal, no RUQ pain or discomfort, incidental finding. No need for further management at this time. Chronic medical conditions: ? History of CVA, hypertension, hyperlipidemia: Continue home Plavix, statin and losartan. ? History of gout: Continue home colchicine. ? Allergies: Continue home loratadine. DVT prophylaxis: SCDs CODE STATUS: Full code, verified Expected disposition: Home, TBD Total clinical time spent by myself addressing the patient's medical issues, reviewing all the data, and collaborating with patient's care team: 35 minutes. Charges/Coding Visit Charges Inpatient E&M: 35499 Subs Hosp L2
[2024-01-13] MEDS: metroNIDAZOLE 500 MG Tablet PO ×2 (14:26→22:39)
[2024-01-13 15:15] VITALS: BP 116/58; PULSE 86; RESP 18; TEMP 36.7; O2SAT 95
--- NOTE | 2024-01-13 17:07 | CT_ITS ---
INDICATION: ischemic colitis EXAMINATION: CTA Abdomen and Pelvis WO/W Contrast Injection TECHNIQUE: Helically acquired images were obtained of the abdomen and pelvis after IV contrast. A radiation dose optimization technique was used for this scan. IV Contrast dosage and agent: IV 100mL [id number] Oral contrast: None. COMPARISON: None. FINDINGS: Visualized lung bases: Unremarkable Liver: Unremarkable Gallbladder: Few small intraluminal stones seen. Spleen: Unremarkable Pancreas: Unremarkable Adrenal Glands: Unremarkable Kidneys: Unremarkable Vasculature: Mild scattered aortoiliac atherosclerotic calcifications. GI Tract: Scattered diverticula throughout the colon without evidence of inflammation. Lymphadenopathy: None Peritoneum: No ascites. Bladder: Unremarkable Reproductive organs: Status post hysterectomy. Bones/Soft tissues: Mild scattered degenerative changes of the visualized spine. Status post posterior fusion L4-S1. 2 mm anterolisthesis L4 and L5. CT/CTA Abd/Pelvis W/WO Contrast IMPRESSION: No acute abnormalities in the abdomen or pelvis. Cholelithiasis. Diverticulosis. Electronically Signed: Irving Fenton MD at 18:33 EDT ,
--- NOTE | 2024-01-13 17:23 | EX.PCM.CON.G ---
HPI Consult Data Date of Consult: 01/13/24 HPI Narrative Reason for Consultation: Colitis HPI Narrative: PIEDAD BAH, is a r 58 F who presents to the emergency room at [facility] with complaints of bloody diarrhea, abdominal cramping, and nausea and vomiting which started approximately 2 AM this morning. 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 She also has a past medical history of ischemic stroke. She did not get tPA. She is on Plavix. She was originally admitted to the ICU and started on antibiotics. Patient denies any previous symptoms which are similar. Patient stated that when the symptoms began she had diarrhea and then mostly clots. Her blood pressure has been running low. CT of the abdomen and pelvis which showed diffuse thickening of the colon in keeping with diffuse colitis. Patient also had multiple small layering gallstones and fatty infiltration of the liver. Her stool thus far has been negative for enteric pathogens and C. difficile. She has no past medical history of inflammatory bowel disease. She has had no recent travel. She denied any recent rashes, change in vision. She does admit to about a 5 to 6 pound weight loss. [facility] Medical History (Updated 01/12/24 @ 15:[address] 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 Home Medications ?Medication ?Instructions ?Recorded ?Last Taken ?Type cetirizine 10 mg tablet 5 mg PO BID allergies 10/29/15 Unknown History clopidogrel 75 mg tablet 75 mg PO DAILY #30 tabs 05/27/19 Unknown Rx losartan 25 mg tablet 25 mg PO DAILY #30 tabs 05/27/19 Unknown Rx hydroxyzine HCl 25 mg tablet 25 mg PO QHS PRN Anxiety 07/06/19 Unknown History atorvastatin 20 mg tablet 40 mg PO DAILY 01/03/22 Unknown History colchicine 0.6 mg tablet 0.6 mg PO BID 01/03/22 Unknown History dapsone 25 mg tablet 50 mg PO DAILY 01/03/22 Unknown History olopatadine 0.6 % nasal spray 2 spray intranasal BID 07/29/22 Unknown History Allergy/AdvReac Type Severity Reaction Status Date / Time oxycodone HCl (From Percocet) Allergy Hives Verified 07/25/22 11:44 Sulfa (Sulfonamide Allergy Hives Verified 07/25/22 11:44 Antibiotics) Family History Mother Hypertension Diabetes Grandmother Heart disease 50-60s Aunt Heart disease 50-60s Surgical History History of carpal tunnel surgery of left wrist History of ear surgery History of spinal surgery History of hysterectomy History of hammer toe correction History of bunionectomy History of open reduction and internal fixation (ORIF) procedure Social History (Updated 01/11/24 @ 10:10 by Preethi Gorman) housing: house current occupational status: employed Smoking Status: Never smoker alcohol intake: current alcohol intake frequency: a few times a month Alcohol type: wine substance use type: does not use caffeine: Yes Type: coffee Number of servings: 2 what type of physical activity do you participate in: walking ROS Constitutional Constitutional: Denies anorexia, change in weight, fever(s), night sweats or weakness Eyes Eyes: Denies blurry vision, change in vision, discharge from eye(s) or eye pain Cardiovascular Cardiovascular: Denies chest pain, claudication, edema or palpitations Respiratory/Chest Respiratory/Chest: Denies cough, hemoptysis, shortness of breath at rest or shortness of breath with exertion Gastrointestinal Gastrointestinal: Reports abdominal pain, diarrhea, nausea and vomiting; Denies constipation, hematemesis, hematochezia or melena Genitourinary Genitourinary: Denies dysuria, hematuria, urinary frequency, urinary hesitancy, urinary incontinence or urinary urgency Musculoskeletal Musculoskeletal: Denies back pain, joint pain, joint stiffness, joint swelling, myalgias or neck pain Neurologic Neurologic: Denies abnormal gait, abnormal speech, dizziness, focal weakness, headache(s), loss of vision, numbness, other visual disturbances, paresthesias, syncope or tingling Psychiatric Psychiatric: Denies anxiety, cognitive impairment, depression, irritability, mood swings or suicidal ideation Endocrine Endocrinology: Denies change in body appearance, cold intolerance, excessive sweating, heat intolerance, polydipsia or polyuria Hematologic/Lymphatic Hematologic/Lymphatic: Denies none, anemia, easy bleeding, easy bruising or lymphadenopathy Allergic/Immunologic Allergic/Immunologic: Denies rhinitis, urticaria, eczemia or asthma Physical Exam Const alert, oriented x3, no apparent distress and healthy appearing General Appearance: cooperative, well kempt and well developed Orientation / Consciousness: awake, oriented to person, oriented to place and oriented to time HEENT normocephalic and moist oral mucous membranes Eyes PERRL, EOMs intact bilaterally and conjunctivae normal Neck supple, no JVD, thyroid normal and no carotid bruits General: trachea midline Resp normal respiratory effort and clear to auscultation bilaterally Auscultation: Negative for rales, rhonchi or wheezes Cardio regular rate, regular rhythm, no murmurs, no rub and no gallops GI normal to inspection, nondistended, normoactive bowel sounds, soft to palpation, non-tender and non-distended Extremity no clubbing, cyanosis or edema Skin no rashes or lesions noted General Skin Exam: no breakdown Neuro oriented x3, CN's II-XII intact bilaterally, no focal motor deficits and no sensory deficits noted Sensorium / Orientation: awake and alert Speech: speech normal Psych affect normal Lab / Micro Data 01/13/24 04:30 01/13/24 04:30 Labs: Laboratory Results - last 24 hr 01/13/24 04:30: WBC 11.2 H, RBC 4.08 L, Hgb 11.3 L, Hct 35.6 L, MCV 87.3, MCH 27.7, MCHC 31.7 L, RDW Std Deviation 39.9, RDW Coeff of Anu 12.5, Plt Count 232, MPV 8.4, Sodium 140, Potassium 3.4 L, Chloride 107, Carbon Dioxide 28.0, Anion Gap 5, BUN 4 L, Creatinine 0.60, Estim Creat Clear Calc 81.82, Est GFR (MDRD) Af Amer 132, Est GFR (MDRD) Non-Af 109, BUN/Creatinine Ratio 6.7 L, Glucose 101, Calcium 8.2 L Micro: Microbiology 01/12/24 22:30 Stool Enteric Bacteriology - Final 01/12/24 22:30 Stool Clostridioides difficile (PCR) - Final 01/12/24 22:30 Stool Stool Lactoferrin - Final Assessment & Plan Assessment/Plan (1) Colitis: (2) BRBPR (bright red blood per rectum): (3) Anemia: PLAN: Plan 58-year-old with past medical history of ischemic stroke on Plavix and also history of urticarial vasculitis on medical therapy who presents with abdominal pain, diarrhea cramping and lower GI bleeding. CT scan abdomen pelvis displays pancolitis. -Colitis : Differential diagnosis does include ischemic vasculitis associated with urticarial vasculitis, infectious gastroenteritis associated with ischemic colitis, ulcerative colitis. Urticarial vasculitis is often idiopathic but can also present in the context of autoimmune disorders such as systemic lupus erythematosus, drug reactions, infections, or a paraneoplastic syndrome. Extracutaneous complications include intestinal ischemic injuries, in urticarial vasculitis patients with nonspecific gastrointestinal symptoms such as abdominal pain and nausea.?There was no evidence of large vessel narrowing or significant atherosclerosis on imaging.? She could be experiencing GI manifestations of her urticarial vasculitis. This would be unusual because she is on medical therapy and she is not having any rash at this time. However it is on the differential diagnosis. Recommendations: -Colonoscopy with biopsies -Colonoscopy to assess the length of ischemic colitis versus ulcerative colitis -CT angiography -C3, C4, CH 50, ANCA, ANTONELLA comprehensive, celiac, IBD SGI, ESR, CRP, anti-smooth muscle -GUDELIA will protein electrophoresis Charges/Coding Visit Charges Inpatient E&M: 70630 Init Hosp L3
[2024-01-13] MEDS: Bisacodyl 5 MG Tablet 20 MG PO (17:54)
[2024-01-13 18:54] LABS: Rheumatoid Factor < 10.0 IU/mL (<15)
[2024-01-13 18:56] LABS: Erythrocyte Sedimentation Rate 8 mm/hr (0-30)
[2024-01-13 22:30] VITALS: BP 138/79; PULSE 87; RESP 16; TEMP 36.6; O2SAT 97
[2024-01-13] MEDS: Polyethylene Glycol 3350 BOWEL PREP PO (22:36)
[2024-01-14] VITALS (11 sets, daily range): BP systolic 100–117; BP diastolic 55–77; PULSE 71–92; RESP 16–18; TEMP 36.8–37.2; O2SAT 95–100
[2024-01-14] MEDS: metroNIDAZOLE 500 MG Tablet PO ×3 (05:52→21:17)
[2024-01-14 07:10] LABS: Hematocrit 38.3 % (37-47); Hemoglobin 12.9 g/dL (12.0-15.0); Mean Corp Hgb Conc 33.7 g/dL (32-36); Mean Corpuscular Hgb 28.8 pg (27.0-32.0); Mean Corpuscular Volume 85.5 fL (81-99); Platelet Count 307 K/mm3 (150-450); RBC Distribution Width CV 12.6 % (11.6-14.6); Red Blood Count 4.48 M/mm3 (4.2-5.4); White Blood Count 8.5 K/mm3 (4.4-11.0)
[2024-01-14 07:22] LABS: Prothrombin Time (Protime)PT. 13.4 SECONDS (11.7-14.9)
[2024-01-14 07:24] LABS: Partial Thromboplast Time 28.5 Seconds (24.1-36.2)
[2024-01-14] MEDS: Ondansetron 4 MG/2 ML Vial IV (08:01)
[2024-01-14] MEDS: 0.9% Saline Lock 10 ML Syringe IV ×2 (08:02→21:28)
[2024-01-14 08:08] LABS: AST(SGOT) 44 U/L (15-37); Alanine Aminotransfer ALT/SGPT 46 U/L (13-56); Albumin, Serum 3.6 g/dL (3.2-5.0); Alkaline Phosphatase 83 U/L (45-117); Anion Gap 6 (5-15); BUN 6 mg/dL (7-18); BUN/Creat Ratio 10.3 RATIO (10-20); Bilirubin, Direct 0.15 mg/dL (0.00-0.30); Calcium,Total 8.8 mg/dL (8.5-10.1); Chloride 110 mmol/L (98-107); Creatinine, Serum 0.58 mg/dL (0.55-1.02); EST Glomerular Filtration Rate 113 mL/min (>60); Est Glom Filt Rate - Afr Amer 137 mL/min (>60); Estimated Creatinine Clearance 84.64 ml/min; Globulin 3.4 g/dL (2.2-4.2); Glucose 103 mg/dL (74-106); Potassium 3.6 mmol/L (3.5-5.1); Sodium Level 140 mmol/L (136-145)
--- NOTE | 2024-01-14 09:23 | PCM.PN.HOSP ---
Subjective Subjective Doing well, no issues overnight. Belly pain is controlled Objective Data Objective Data Vital Signs: Vital Signs Temp Pulse Resp BP Pulse Ox O2 Del Method O2 Flow Rate 98.2 F 78 16 101/56 L 98 Room Air 2 01/14/24 04:30 01/14/24 04:30 01/14/24 04:30 01/14/24 04:30 01/14/24 04:30 01/14/24 07:51 01/13/24 07:44 Oxygen Flow Rate (L/min) 2 Oxygen Delivery Method Room Air Weight: 123 lb 2.697 oz Body Mass Index (BMI) 22.5 Intake & Output: Intake and Output for Last 24 Hours 01/13/24 01/14/24 01/15/24 03:59 03:59 03:59 Intake Total 2200.75 / 2200.75 549.25 / 549.25 Output Total 100 / 100 Balance 2100.75 / 2100.75 549.25 / 549.25 Lab / Micro Data 01/14/24 06:39 01/14/24 06:39 Labs: Laboratory Results - last 24 hr 01/13/24 18:17: ESR 8, C-React Prot Ext Range 29.10 H, Rheumatoid Factor < 10.0 01/14/24 06:39: WBC 8.5, RBC 4.48, Hgb 12.9, Hct 38.3, MCV 85.5, MCH 28.8, MCHC 33.7 D, RDW Std Deviation 39.0, RDW Coeff of Anu 12.6, Plt Count 307, MPV 9.0, PT 13.4, INR 1.0, APTT 28.5, Sodium 140, Potassium 3.6, Chloride 110 H, Carbon Dioxide 24.0, Anion Gap 6, BUN 6 L, Creatinine 0.58, Estim Creat Clear Calc 84.64, Est GFR (MDRD) Af Amer 137, Est GFR (MDRD) Non-Af 113, BUN/Creatinine Ratio 10.3, Glucose 103, Calcium 8.8, Total Bilirubin 0.70, Direct Bilirubin 0.15, AST 44 H, ALT 46, Alkaline Phosphatase 83, Total Protein 7.0, Albumin 3.6, Globulin 3.4 Micro: Microbiology 01/12/24 22:30 Stool Enteric Bacteriology - Final 01/12/24 22:30 Stool Clostridioides difficile (PCR) - Final 01/12/24 22:30 Stool Stool Lactoferrin - Final 01/11/24 10:17 Mucosa - Nose SARS-CoV-2, Influenza & RSV (PCR) - Final Radiography Diagnostic Testing: Radiology Impression Abdomen/Pelvis CTA 01/13/24 17:07 IMPRESSION: No acute abnormalities in the abdomen or pelvis. Cholelithiasis. Diverticulosis. Electronically Signed: Irving Fenton MD at 18:33 EDT , Physical Exam Narrative General: Alert, Oriented x3, Cooperative, No apparent distress HEENT: Atraumatic, PERRLA, EOMI, Normocephalic Oral: Moist Mucosa Neck: Supple, No JVD Lungs: Diminished, Normal air movement, No rhonchi, No wheeze, No rales Cardiovascular: Regular rate, Regular Rhythm, Normal S1, Normal S2, No murmurs Abdomen: Soft, Non Tender, Non-Distended, No Hepato-splenomegaly Extremities: No edema, Capillary Refill Less than 3 Seconds Skin: No rashes, No breakdown Musculoskeletal: No Tenderness to Palpation of Joints or Extremities Neurological: No focal neurological deficits, Motor Exam 5/5 strength throughout, Sensory exam intact to light touch and pain Psych/Mental Status: Normal Affect, Appropriate Assessment & Plan Assessment/Plan (1) Colitis: (2) Anemia: (3) BRBPR (bright red blood per rectum): PLAN: Plan 1. Pancolitis ? Highest suspicion on admit was for infectious etiology possibly due to food poisoning, as she had no prior history of episodes like this, no history of autoimmune disease, and a normal colonoscopy around age 51. However, stool PCR panel and C. difficile negative on 01/12. CT abdomen pelvis with IV contrast on admit showed pancolitis. Had significant diarrhea and nausea/vomiting prior to admission that ceased on morning of 01/11, but on escalating to regular diet on afternoon of 01/11 she had recurrence of loose bowel movements. Stool lactoferrin negative, calprotectin pending. Will continue Cipro and Flagyl for now. GI consulted for further recommendations. 01/14/2024: Awaiting colonoscopy by GI, continue n.p.o. status 2. Bright red blood per rectum, mild acute anemia ? Presumed secondary to pancolitis as noted above. Hemoglobin 14.4 on admit, down trended to 11.5 on hospital day 2. Remaining stable, most recent hemoglobin 11.3 on 01/12. Likely some degree of hemoconcentration on admit labs as well. Iron studies show a degree of iron deficiency anemia, ferritin 73. Continue to monitor CBC daily. Will plan to start p.o. iron supplement on discharge and can consider IV iron supplementation in outpatient setting as needed. 01/14/2024: Anemia is resolved 3. Cholelithiasis, fatty liver disease ? CT abdomen pelvis on admit showed multiple small layering gallstones and fatty infiltration of the liver. LFTs normal, no RUQ pain or discomfort, incidental finding. No need for further management at this time. Chronic medical conditions: ? History of CVA, hypertension, hyperlipidemia: Continue home Plavix, statin and losartan. ? History of gout: Continue home colchicine. ? Allergies: Continue home loratadine. DVT: SCDs Charges/Coding Visit Charges Inpatient E&M: 18612 Subs Hosp L2
[2024-01-14] MEDS: Lactated Ringers 1,000 ML 15 ML IV (11:19)
--- NOTE | 2024-01-14 11:33 | PCM.PRE.AN2 ---
ASA Classification* ASA Classification ASA Classification: 2, 3 and E Assessment & Plan Anesthesia* Anesthesia Assessment Anesthesia Assessment: Discussed sedation and/or anesthesia options, risks, benefits, and alternatives with patient/parents/legal guardian/POA. Questions invited. The patient/parents/legal guardian/POA seems to understand and agrees to proceed with anesthesia plan. Reviewed the physical assessment, medical history, allergy history and patient home medications list prior to surgery/procedure/anesthetic and documented any changes. Performed airway and anesthesia risk assessments. Anesthesia Type Anesthesia Type: MAC (* see pre anesthesia record for full assessment) Anesthesia Focused Assessment* Temperature: 98.2 F Pulse Rate: 92 Blood Pressure: 100/60 Respiratory Rate: 18 Pulse Ox: 95 Airway Assessment Mouth opens: >3 cm Mallampati Score: II Focused Labs Anesthesia Preop lab: CBC WBC 8.5 K/mm3 (4.4-11.0) 01/14/24 06:39 RBC 4.48 M/mm3 (4.2-5.4) 01/14/24 06:39 Hgb 12.9 g/dL (12.0-15.0) 01/14/24 06:39 Hct 38.3 % (37-47) 01/14/24 06:39 Plt Count 307 K/mm3 (150-450) 01/14/24 06:39 CHEMISTRY Potassium 3.6 mmol/L (3.5-5.1) 01/14/24 06:39 Sodium 140 mmol/L (136-145) 01/14/24 06:39 Magnesium 2.1 mg/dL (1.6-2.6) 01/12/24 08:57 Phosphorus 2.0 mg/dL (2.5-4.9) L 01/12/24 08:57 BUN 6 mg/dL (7-18) L 01/14/24 06:39 Creatinine 0.58 mg/dL (0.55-1.02) 01/14/24 06:39 Glucose 103 mg/dL (74-106) 01/14/24 06:39 POC Glucose 114 mg/dL (70-110) H 05/25/19 22:38 TSH 1.81 uIU/mL (0.358-3.74) 04/26/20 15:57 COAG PT 13.4 SECONDS (11.7-14.9) 01/14/24 06:39 Pre-Assessment Diagnosis/Proposed Procedure Planned Operative Procedure(s): colonoscopy Anesthesia History 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 When Was Last Pacemaker Check QUESTION #4 FULL TEXT: You/Your Family Experience fever (hyperthermia) with Anesthesia Last Oral Intake Last Oral intake: Last Oral Intake NPO since Meds taken in AM with sips of water? Meds patient instructed to take am of surgery PONV PONV - coil inspector: PONV - coil inspector Female HX of Motion Sickness HX of N/V After Surgery Non-Smoker Duration of Surgery greater than 60 minutes Number of Risk Factors PONV Score Height & Weight Height & Weight: Anesthesia: Height & Weight Height 5 ft 2 in 01/13/24 15:54 Weight: 55.868 kg 01/13/24 15:54 Body Mass Index (BMI) 22.5 01/11/24 16:10 Respiratory Assessment Respiratory Assessment - coil inspector: Respiratory Tract Infection Hx - coil inspector Hx Respiratory Tract Infection No 01/13/24 22:20 STOP Sleep Apnea STOP Sleep Apnea - coil inspector: STOP Sleep Apnea - coil inspector Hx Hypertension Yes 01/11/24 16:18 Hx Sleep Apnea No 01/11/24 16:18 CPAP BIPAP Do you snore loudly (louder No 01/11/24 16:18 than talking or can be heard Do you often feel tired/ No 01/11/24 16:18 fatigued/ sleepy during daytime? Has anyone observed you stop No 01/11/24 16:18 breathing during sleep? STOP Results Negative 01/11/24 16:18 QUESTION #5 FULL TEXT : Do you snore loudly (louder than talking or can be heard through closed doors)? 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 Specify any problems Hx of Preganancy in last 3 No 01/11/24 16:18 Months Nurse Filling Out Transfusion SWILEY 01/11/24 16:18 & Questions: Date: 01/11/24 01/11/24 16:18 Time: 16:20 01/11/24 16:18 Patient unable to answer at this time (ie. confused, unrespo /Reproduction History /Reproductive History - coil inspector: /Reproductive Hx- coil inspector Hx Now No 01/13/24 22:20 Gestational Age (in weeks): EDC: Hx Hx Para Hx Section SAB Active Medications Active Medications: Current Medications Generic Name Dose Route Start Last Admin Trade Name Freq PRN Reason Stop Dose Admin Hydrocodone Bitart/Acetaminophen 1 tablet 01/11/24 16:04 01/13/24 23:52 Hydrocodone Bitartrate/Apap 5/325 Tablet PO 1 tablet Q4H PRN PRN Administration Pain Score 1-10 Atorvastatin Calcium 40 mg 01/12/24 10:00 01/14/24 07:38 Atorvastatin Calcium 40 Mg Tablet PO Not Given DAILY CHRISTINE Azelastine HCl 2 spray 01/11/24 22:00 01/14/24 07:39 Azelastine Hcl Nasal.Sry NASAL Not Given BID CHRISTINE Ciprofloxacin HCl 500 mg 01/13/24 10:00 01/14/24 07:41 Ciprofloxacin 500 Mg Tablet PO Not Given BID CHRISTINE Clopidogrel Bisulfate 75 mg 01/12/24 10:00 01/14/24 07:38 Clopidogrel Bisulfate 75 Mg Tablet PO Not Given DAILY CHRISTINE Colchicine 0.6 mg 01/11/24 22:00 01/14/24 07:39 Colchicine 0.6 Mg Tablet PO Not Given BID [facility] Dapsone 50 mg 01/12/24 10:00 01/14/24 07:41 Dapsone 25 Mg Tablet PO Not Given DAILY [facility] Hydroxyzine Pamoate 25 mg 01/11/24 16:04 Hydroxyzine Marina 25 Mg Capsule PO QHS PRN PRN Anxiety Sodium Chloride 250 mls @ 15 mls/hr 01/11/24 16:12 01/13/24 15:43 IV Infused .[id number] PRN Infusion Additional IVPB Infusion Sodium Chloride 250 mls @ 15 mls/hr 01/11/24 16:12 IV .[id number] PRN Saline Flush Lactated Ringer's 1,000 mls @ 15 mls/hr 01/14/24 11:00 01/14/24 11:19 IV 15 mls/hr .Q48H CHRISTINE Administration Loratadine 5 mg 01/11/24 22:00 01/14/24 07:39 Loratadine 10 Mg Tablet PO Not Given BID [facility] Losartan Potassium 25 mg 01/12/24 10:00 01/14/24 07:39 Losartan Potassium 25 Mg Tablet PO Not Given DAILY [facility] Protocol Metronidazole 500 mg 01/13/24 14:00 01/14/24 05:52 Metronidazole 500 Mg Tablet PO 500 mg TID [facility] Administration Morphine Sulfate 2 - 4 mg 01/11/24 16:04 01/12/24 02:07 Morphine 2 Mg/Ml Syringe IV 2 mg Q3H PRN PRN Administration Pain Score 6-10 Morphine Sulfate 2 - 4 mg 01/11/24 16:10 Morphine 4 Mg/Ml Syringe IV Q3H PRN PRN Pain Score 6-10 Nutritional Formula (Lactose Free) 120 ml 01/13/24 18:00 01/14/24 07:38 Ensure Plus High Protein 120 Ml Liquid PO Not Given 4X/DAY [facility] Ondansetron HCl 4 mg 01/11/24 16:04 01/14/24 08:01 Ondansetron 4 Mg/2 Ml Vial IV 4 mg Q8H PRN PRN Administration NAUSEA/VOMITING Potassium Phos/Sodium Phos 1 packet 01/13/24 08:40 01/14/24 05:55 Na Biphos/Potassium Phosphate Packet PO Not Given TID [facility] Sodium Chloride 10 - 40 ml 01/11/24 16:12 01/14/24 08:02 0.9% Saline Lock 10 Ml Syringe IV 10 ml UD PRN Administration SALINE FLUSH Temazepam 15 mg 01/11/24 16:04 Temazepam 15 Mg Capsule PO QHS PRN PRN INSOMNIA PFSH Medical History Hypertension TIA (transient ischemic attack) Hyperlipidemia Essential hypertension Abrasion, right knee, initial encounter Left ankle sprain Sprain of unspecified ligament of left ankle, initial encounter Ischemic cerebrovascular accident (CVA) (05/25/19) Vertigo Acute ischemic stroke 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 Home Medications ?Medication ?Instructions ?Recorded ?Last Taken ?Type cetirizine 10 mg tablet 5 mg PO BID allergies 10/29/15 Unknown History clopidogrel 75 mg tablet 75 mg PO DAILY #30 tabs 05/27/19 Unknown Rx losartan 25 mg tablet 25 mg PO DAILY #30 tabs 05/27/19 Unknown Rx hydroxyzine HCl 25 mg tablet 25 mg PO QHS PRN Anxiety 07/06/19 Unknown History atorvastatin 20 mg tablet 40 mg PO DAILY 01/03/22 Unknown History colchicine 0.6 mg tablet 0.6 mg PO BID 01/03/22 Unknown History dapsone 25 mg tablet 50 mg PO DAILY 01/03/22 Unknown History olopatadine 0.6 % nasal spray 2 spray intranasal BID 01/03/22 Unknown History Allergy/AdvReac Type Severity Reaction Status Date / Time oxycodone HCl (From Percocet) Allergy Hives Verified 07/25/22 11:44 Sulfa (Sulfonamide Allergy Hives Verified 07/25/22 11:44 Antibiotics) Family History Mother Hypertension Diabetes Grandmother Heart disease 50-60s Aunt Heart disease 50-60s Surgical History History of carpal tunnel surgery of left wrist History of ear surgery History of spinal surgery History of hysterectomy History of hammer toe correction History of bunionectomy History of open reduction and internal fixation (ORIF) procedure Social History housing: house current occupational status: employed Smoking Status: Never smoker alcohol intake: current alcohol intake frequency: a few times a month Alcohol type: wine substance use type: does not use caffeine: Yes Type: coffee Number of servings: 2 what type of physical activity do you participate in: walking Review of Systems (Anesthesia) ROS Narrative System reviewed and no additional complaints, except as documented.
--- NOTE | 2024-01-14 11:45 | COLBX_PTH ---
PATIENT: PIEDAD BAH LOC: MS3 U#:[id number] AGE/SX: 58/F ROOM: MS306 RE01/11/[address]: Dr. Zac Lin MD : 1965 BED: 1 DIS: 01/15/2024 SPEC #: [id number] RECD: 01/14/24 16:23 STATUS: ALIYA ELIAS #: [id number] DIANELYS: 01/14/24 11:[address]: Wali Pal DEPT: SURGICAL PATHOLOGY RECD BY: Sally Rmoe ENTERED: 01/15/24 07:14 SP TYPE: COLON BX OTHR DR: Dr. Jeb Agarwal, DO MD Dr. Rafael Milian, DO Dr. Zac Lin MD Tissues: A - Duodenum, NOS B - Cecum, NOS C - Ascending colon D - Transverse colon E - Descending colon F - Sigmoid colon biopsy G - Rectum, NOS Procedures: Surgery Specimen Level IV Comments: @ Ordering doctor for SUIV edited from to @ by PASCUAL at 01/15/[address] [facility] @ Submitting doctor edited from to @ philip GARNER at 01/15/24 08 HEADER OPERATION: Colonoscopy with biopsy PRE-OP DIAGNOSIS: Colitis TISSUE SUBMITTED: A- Duodenum biopsy, B- Cecum biopsy, C- Ascending colon biopsy, D- Transverse colon biopsy, E- Descending colon biopsy, F- Sigmoid biopsy, G- Rectum biopsy MICROSCOPIC DIAGNOSIS A. Terminal ileum, biopsy: Fragments of small intestinal mucosa, no pathologic diagnosis. B. Cecum, biopsy: Fragments of colonic mucosa, no pathologic diagnosis. C. Ascending colon, biopsy: Fragments of colonic mucosa with focal minimal changes consistent with ischemic colitis. D. Transverse colon, biopsy: Fragments of colonic mucosa with focal ulceration, acute inflammation and changes consistent with ischemic colitis. E. Descending colon, biopsy: Fragments of colonic mucosa with focal changes consistent with ischemic colitis. F. Sigmoid colon, biopsy: Fragments of colonic mucosa with mild non-specific chronic inflammation. G. Rectum, biopsy: Fragments of colonic mucosa with mild non-specific chronic inflammation. EVA/ 01/18/2024 COMMENT Correlation with clinical, endoscopic findings and appropriate follow up are necessary. MICROSCOPIC DESCRIPTION Slides are reviewed. GROSS DESCRIPTION A. Received in fixative is one container labeled with the patient's name and designated terminal ileum biopsy. The specimen consists of two irregular fragments of light mitchell soft tissue that in aggregate measure 0.6 x 0.4 x 0.1 cm. The specimen is totally submitted in one cassette. B. Received in fixative is one container labeled with the patient's name and designated Cecum biopsy. The specimen consists of multiple irregular fragments of light mitchell soft tissue that in aggregate measure 1.0 x 0.5 x 0.1 cm. The specimen is totally submitted in one cassette. C. Received in fixative is one container labeled with the patient's name and designated Ascending colon biopsy. The specimen consists of multiple irregular fragments of light mitchell soft tissue that in aggregate measure 1.3 x 0.4 x 0.1 cm. The specimen is totally submitted in one cassette. D. Received in fixative is one container labeled with the patient's name and designated Transverse colon biopsy. The specimen consists of multiple irregular fragments of light mitchell soft tissue that in aggregate measure 1.2 x 0.4 x 0.1 cm. The specimen is totally submitted in one cassette. E. Received in fixative is one container labeled with the patient's name and designated Descending colon biopsy. The specimen consists of multiple irregular fragments of light mitchell soft tissue that in aggregate measure 1.0 x 0.3 x 0.1 cm. The specimen is totally submitted in one cassette. F. Received in fixative is one container labeled with the patient's name and designated Sigmoid colon biopsy. The specimen consists of multiple irregular fragments of light mitchell soft tissue that in aggregate measure 1.0 x 0.3 x 0.1 cm. The specimen is totally submitted in one cassette. G. Received in fixative is one container labeled with the patient's name and designated Rectum biopsy. The specimen consists of multiple irregular fragments of light mitchell soft tissue that in aggregate measure 1.0 x 0.3 x 0.1 cm. The specimen is totally submitted in one cassette. EVA/ 01/15/2024 TC:5 [facility]:[id number]
--- NOTE | 2024-01-14 12:35 | OP.CCLET_ITS ---
01/14/2024 Lasha Hartman Re : Colonoscopy procedure for Marcela Mitchell Dear Devan This procedure was performed on January. My impressions and recommendations are as follows: Impressions : - Diffuse moderate inflammation was found in the entire examined colon secondary to colitis. Biopsied. - The examined portion of the ileum was normal. Biopsied. Recommendations : - Discharge patient to home. - Resume regular diet. - Continue present medications. - Await pathology results. - Repeat colonoscopy in 6 months for surveillance. My findings are described in the full procedure note, which is enclosed. If I can be of further assistance, please feel free to contact me at . Sincerely, Wali Pal, 01/14/2024 12:34:43 PM This report has been signed electronically.
--- NOTE | 2024-01-14 12:35 | OP.COLON_ITS ---
Patient Name: Marcela Mitchell Procedure Date: 01/14/2024 10:27 AM Date of : 1965 Age: 58 Procedure: Colonoscopy Indications: Clinically significant diarrhea of unexplained origin, Hematochezia Providers: Wali Pal DO Medicines: Monitored Anesthesia Care Patient Profile: This is a 58 year old female. Refer to note in patient chart for documentation of history and physical. Last Colonoscopy: 10 years ago. Complications: No immediate complications. Procedure: Pre-Anesthesia Assessment: - Prior to the procedure, a History and Physical was performed, and patient medications and allergies were reviewed. The patient is competent. The risks and benefits of the procedure and the sedation options and risks were discussed with the patient. All questions were answered and informed consent was obtained. Patient identification and proposed procedure were verified by the physician in the pre-procedure area. Mental Status Examination: alert and oriented. Airway Examination: normal oropharyngeal airway and neck mobility. Respiratory Examination: clear to auscultation. CV Examination: normal. Prophylactic Antibiotics: The patient does not require prophylactic antibiotics. Prior Anticoagulants: The patient has taken no anticoagulant or antiplatelet agents. ASA Grade Assessment: III - A patient with severe systemic disease. After reviewing the risks and benefits, the patient was deemed in satisfactory condition to undergo the procedure. The anesthesia plan was to use monitored anesthesia care (MAC). Immediately prior to administration of medications, the patient was re-assessed for adequacy to receive sedatives. The heart rate, respiratory rate, oxygen saturations, blood pressure, adequacy of pulmonary ventilation, and response to care were monitored throughout the procedure. The physical status of the patient was re-assessed after the procedure. After I obtained informed consent, the scope was passed under direct vision. Throughout the procedure, the patient's blood pressure, pulse, and oxygen saturations were monitored continuously. The Colonoscope was introduced through the anus and advanced to 10 cm into the ileum. The colonoscopy was performed without difficulty. The patient tolerated the procedure well. The quality of the bowel preparation was adequate. The terminal ileum, ileocecal valve, appendiceal orifice, and rectum were photographed. Scope In: 12:07:54 PM Scope Withdrawal Time 0 hours 14 minutes 22 seconds Scope Out: 12:27:18 PM Total Procedure Duration Time 0 hours 19 minutes 24 seconds Findings: The perianal and digital rectal examinations were normal. Diffuse moderate inflammation characterized by congestion (edema), granularity, loss of vascularity and serpentine ulcerations was found in the entire colon. Biopsies were taken with a cold forceps for histology. Verification of patient identification for the specimen was done. Estimated blood loss was minimal. The terminal ileum appeared normal. Biopsies were taken with a cold forceps for histology. Verification of patient identification for the specimen was done. Estimated blood loss was minimal. Impression: - Diffuse moderate inflammation was found in the entire examined colon secondary to colitis. Biopsied. - The examined portion of the ileum was normal. Biopsied. Recommendation: - Discharge patient to home. - Resume regular diet. - Continue present medications. - Await pathology results. - Repeat colonoscopy in 6 months for surveillance. Procedure Code(s): --- Professional --- 18866, Colonoscopy, flexible; with biopsy, single or multiple CPT copyright 2021 [employer]. All rights reserved. The codes documented in this report are preliminary and upon medical billing coder review may be revised to meet current compliance requirements. Wali Pal DO 01/14/2024 12:34:43 PM This report has been signed electronically. Number of Addenda: 0 Note Initiated On: 01/14/2024 10:27 AM
--- NOTE | 2024-01-14 12:36 | PCM.POST.ANE ---
Anesthesia: Postop Eval I Current Vital Signs Temperature: 98.3 F Pulse Rate: 88 Blood Pressure: 114/55 Respiratory Rate: 18 Pulse Ox: 98 Oxygen Delivery Method: Room Air Assessment Airway patent: Yes Spontaneous unlabored respirations: Yes Mental status: Awake and Calm nausea: No Vomiting: No Anesthesia Complication: No Fluid Hydration Crystalloid volume administer (ml): 600 Total IV fluid infused: 600 Progress Note Anesthesia document: Postop Eval 1 completed: Yes
--- NOTE | 2024-01-14 13:08 | PCM.POSTANE2 ---
Anesthesia Postop Eval I Sum Postop Eval Completion status Anesthesia document: Postop Eval 1 completed: Yes Anesthesia Postop Eval I Summary Anesthesia Postop Eval I Summary: Anesthesia Postop Eval I: Assessment Summary Airway patent Yes 01/14/24 12:37 [email or web address] Spontaneous unlabored Yes 01/14/24 12:37 [email or web address] respirations Mental status Awake,Calm 01/14/24 12:37 [email or web address] nausea No 01/14/24 12:37 [email or web address] Vomiting No 01/14/24 12:37 [email or web address] Anesthesia Postop Eval I: Fluid Summary Crystalloid volume administer 600 01/14/24 12:37 [email or web address] (ml) Colloids volume administered ( ml) Blood Product volume administered (ml) Total IV fluid infused 600 01/14/24 12:37 [email or web address] Anesthesia Postop Eval I: Summary Notes Anesthesia Complication No 01/14/24 12:37 [email or web address] Anesthesia Complication Comment: Post-operative progress note Anesthesia: Postop Eval II Evaluation Mental status: Awake and Calm Pain Level: 0 nausea: No Vomiting: No Complications Anesthesia Complication: No
[2024-01-14] MEDS: Na Biphos/Potassium Phosphate PACKET 1 PACKET PO (13:17)
[2024-01-14] MEDS: Azelastine HCl NASAL.SRY 2 SPRAY NASAL (21:16)
[2024-01-14] MEDS: Loratadine 10 MG Tablet 5 MG PO (21:16)
[2024-01-14] MEDS: Colchicine 0.6 MG TABLET PO (21:17)
[2024-01-14] MEDS: Ciprofloxacin 500 MG Tablet PO (21:17)
[2024-01-15 00:29] VITALS: BP 103/55; PULSE 69; RESP 18; TEMP 36.9; O2SAT 96
[2024-01-15 06:11] LABS: Absolute Neutrophil Count 5.4 X10^3/uL (2.0-7.7); Basophil# 0.05 X10^3/uL; Basophil% 0.6 % (0-1); Eosinophil# 0.37 X10^3/uL; Eosinophils% 4.4 % (0-5); Hematocrit 36.6 % (37-47); Hemoglobin 11.8 g/dL (12.0-15.0); Lymphocyte % 23.6 % (19-41); Mean Corp Hgb Conc 32.2 g/dL (32-36); Mean Corpuscular Hgb 27.6 pg (27.0-32.0); Mean Corpuscular Volume 85.7 fL (81-99); Mean Platelet Vol. 8.5 fl (6.2-12.0); Monocyte# 0.59 X10^3/uL; NRBC Flagged by Analyzer 0 % (0-5); Neutrophil # 5.43 X10^3/uL (2.7-7.7); Neutrophil % 64.2 % (47-70); Platelet Count 284 K/mm3 (150-450); RBC Distribution Width CV 12.5 % (11.6-14.6); RBC Distribution Width SD 38.5 fl (35.1-43.9); Red Blood Count 4.27 M/mm3 (4.2-5.4); White Blood Count 8.5 K/mm3 (4.4-11.0)
[2024-01-15 06:31] VITALS: BP 108/59; PULSE 70; RESP 18; TEMP 36.4; O2SAT 94
[2024-01-15] MEDS: metroNIDAZOLE 500 MG Tablet PO (06:36)
[2024-01-15] MEDS: Dicyclomine 10 MG Capsule PO (06:36)
[2024-01-15 06:41] LABS: Anion Gap 7 (5-15); BUN 7 mg/dL (7-18); BUN/Creat Ratio 10.3 RATIO (10-20); Calcium,Total 8.8 mg/dL (8.5-10.1); Chloride 106 mmol/L (98-107); Creatinine, Serum 0.68 mg/dL (0.55-1.02); EST Glomerular Filtration Rate 94 mL/min (>60); Est Glom Filt Rate - Afr Amer 114 mL/min (>60); Estimated Creatinine Clearance 72.19 ml/min; Glucose 97 mg/dL (74-106); Potassium 3.4 mmol/L (3.5-5.1); Sodium Level 139 mmol/L (136-145)
--- NOTE | 2024-01-15 08:16 | DCINST_ITS ---
Discharge Instructions Diet Discharge Diet: [place] diet Activity Discharge Activity: Return to Normal Activity Dressing / Incision Call your doctor if you observe: Fever of 101 or Higher, Shortness of breath, Dizziness, Fainting spells, Swelling in the ankles, Chest pain and Increased palpitations (irregular heartbeat) Follow Up Care Test Results: Test results from this visit will be discussed in further detail at your follow- up appointment, if applicable. Discharge Plan Admission Admit Date/Time: 01/11/24 14:19 Attending Provider: Zac Lin Primary Care Provider: Lasha Hartman Consulting Providers: Rafael Venegas; Jeb Agarwal Discharge Orders/Prescriptions Prescriptions: New metronidazole 500 mg Tablet 500 mg PO TID 5 Days Qty: 15 0RF ciprofloxacin HCl 500 mg Tablet 500 mg PO BID 5 Days Qty: 10 0RF dicyclomine 10 mg Capsule 10 mg PO TIDAC 30 Days Qty: 90 0RF ondansetron 4 mg tablet,disintegrating 4 mg PO Q8H PRN (Reason: nausea and vomiting) Qty: 10 0RF Continued hydroxyzine HCl 25 mg tablet 25 mg PO QHS PRN (Reason: Anxiety) atorvastatin 20 mg tablet 40 mg PO DAILY colchicine 0.6 mg tablet 0.6 mg PO BID dapsone 25 mg tablet 50 mg PO DAILY Patient Comments: Take 2 tablets by mouth once daily. olopatadine 0.6 % spray,non-aerosol 2 spray intranasal BID Patient Comments: Use 2 Sprays in each nostril twice daily. cetirizine 10 MG tablet 5 mg PO BID clopidogrel 75 MG tablet 75 mg PO DAILY Qty: 30 0RF losartan 25 MG tablet 25 mg PO DAILY Qty: 30 0RF Referrals / Follow Up: Lasha Hartman MD [Primary Care Provider] - Within 1 Week Wali Pal DO [Med Staff - Active Staff] - Within 1 Month Disposition Disposition (needs filled in before D/C Order can be placed): Home, Self Care
[2024-01-15 09:07] VITALS: BP 103/44; PULSE 86; RESP 16; TEMP 37; O2SAT 94
--- NOTE | 2024-01-15 11:41 | PCM.DC.SUM ---
Providers Date of Admission: 01/11/24 Primary Care Physician: Dr. Lasha Hartman MD Consultations 01/13/24 12:27 Consult: Gastroenterology Routine Consulting Provider: Michael Gastroenter[facility] Reason for Consult: pancolitis of unclear etiology EMERGENT Consult: No MD Notified: Yes Date Notified: 01/13/24 Time Notified: 12:44 Method of Notification: Text Reason For Visit: INTRACTABLE ABDOMINAL PAIN, BLOODY BOWEL MOVEMENTS Diagnosis Discharge Diagnosis (1) Colitis: Status: Acute Code(s): K52.9 - Noninfective gastroenteritis and colitis, unspecified (2) Anemia: Status: Acute Code(s): D64.9 - Anemia, unspecified (3) BRBPR (bright red blood per rectum): Status: Acute Code(s): K62.5 - Hemorrhage of anus and rectum Medications at Discharge Home Medications cetirizine 10 mg tablet 5 mg PO BID allergies 10/29/15 clopidogrel 75 mg tablet 75 mg PO DAILY #30 tabs 05/27/19 losartan 25 mg tablet 25 mg PO DAILY #30 tabs 05/27/19 hydroxyzine HCl 25 mg tablet 25 mg PO QHS PRN Anxiety 07/06/19 atorvastatin 20 mg tablet 40 mg PO DAILY 01/03/22 colchicine 0.6 mg tablet 0.6 mg PO BID 01/03/22 dapsone 25 mg tablet 50 mg PO DAILY 01/03/22 olopatadine 0.6 % nasal spray 2 spray intranasal BID 01/03/22 ciprofloxacin HCl 500 mg tablet 500 mg PO BID 5 days #10 tabs 01/15/24 dicyclomine 10 mg capsule 10 mg PO TIDAC 30 days #90 caps 01/15/24 metronidazole 500 mg tablet 500 mg PO TID 5 days #15 tabs 01/15/24 ondansetron 4 mg disintegrating tablet 4 mg PO Q8H PRN nausea and vomiting #10 tabs 01/15/24 Hospital Course Operations None Procedures Colonoscopy Summary of Care Provided Minutes Spent on Discharge: 35 Hospital Course: Per HPI: PIEDAD BAH, is a 58 F who presents to the emergency room at [facility] with complaints of bloody diarrhea, abdominal cramping, and nausea and vomiting which started approximately 2 AM this morning. Patient denies any previous symptoms which are similar. Patient stated that when the symptoms began she had diarrhea and then mostly clots. Labs obtained in the emergency room showed an elevated white blood cell count at 13.3, chemistry profile was abnormal for glucose of 123, urinalysis showed +1 bacteria. Patient had a CT of the abdomen and pelvis which showed diffuse thickening of the colon in keeping with diffuse colitis. Patient also had multiple small layering gallstones and fatty infiltration of the liver. Patient will be admitted to [facility], she will be started on IV antibiotics and stool will be obtained for enteric pathogens and C. difficile. Fluids will be administered, I will keep her on a liquid diet. Hospital Course: 1. Pancolitis ? Highest suspicion on admit was for infectious etiology possibly due to food poisoning, as she had no prior history of episodes like this, no history of autoimmune disease, and a normal colonoscopy around age 51. However, stool PCR panel and C. difficile negative on 01/12. CT abdomen pelvis with IV contrast on admit showed pancolitis. Had significant diarrhea and nausea/vomiting prior to admission that ceased on morning of 01/11, but on escalating to regular diet on afternoon of 01/11 she had recurrence of loose bowel movements. Stool lactoferrin negative, calprotectin pending. Will continue Cipro and Flagyl for now. GI consulted for further recommendations. 01/14/2024: Awaiting colonoscopy by GI, continue n.p.o. status 01/15/2024: Had a colonoscopy yesterday which demonstrated diffuse ulcerations in the entirety of her colon consistent with possible Crohn's the pathology is pending but cannot be sure at this time. She is feeling much better today and stated she had a little bit of blood after the procedure but otherwise hemoglobin today is over 11. Gastroenterology started her on Bentyl for spasms but is waiting for pathology prior to starting definitive treatment. I discussed with her the plan for discharge today she expressed understanding of the risk benefits of going home and would like to go home today. She will need to follow-up within a week with her PCP and within a month with gastroenterology to obtain pathology results as well as to potentially initiate treatment. I do recommend completing 5 more days of Cipro and Flagyl to complete antibiotic course otherwise she can resume her home medications. 2. Bright red blood per rectum, mild acute anemia ? Presumed secondary to pancolitis as noted above. Hemoglobin 14.4 on admit, down trended to 11.5 on hospital day 2. Remaining stable, most recent hemoglobin 11.3 on 01/12. Likely some degree of hemoconcentration on admit labs as well. Iron studies show a degree of iron deficiency anemia, ferritin 73. Continue to monitor CBC daily. Will plan to start p.o. iron supplement on discharge and can consider IV iron supplementation in outpatient setting as needed. 01/14/2024: Anemia is resolved 3. Cholelithiasis, fatty liver disease ? CT abdomen pelvis on admit showed multiple small layering gallstones and fatty infiltration of the liver. LFTs normal, no RUQ pain or discomfort, incidental finding. No need for further management at this time. Chronic medical conditions: ? History of CVA, hypertension, hyperlipidemia: Continue home Plavix, statin and losartan. ? History of gout: Continue home colchicine. ? Allergies: Continue home loratadine. Physical Exam Narrative General: Alert, Oriented x3, Cooperative, No apparent distress HEENT: Atraumatic, PERRLA, EOMI, Normocephalic Oral: Moist Mucosa Neck: Supple, No JVD Lungs: Diminished, Normal air movement, No rhonchi, No wheeze, No rales Cardiovascular: Regular rate, Regular Rhythm, Normal S1, Normal S2, No murmurs Abdomen: Soft, Non Tender, Non-Distended, No Hepato-splenomegaly Extremities: No edema, Capillary Refill Less than 3 Seconds Skin: No rashes, No breakdown Musculoskeletal: No Tenderness to Palpation of Joints or Extremities Neurological: No focal neurological deficits, Motor Exam 5/5 strength throughout, Sensory exam intact to light touch and pain Psych/Mental Status: Normal Affect, Appropriate Weight / BMI Weight Weight: 123 lb 2.697 oz Body Mass Index (BMI) 22.5 ABG / Lab / Microbiology Data 01/15/24 05:12 01/15/24 05:12 Laboratory: Laboratory Results - last 24 hr 01/15/24 05:12: WBC 8.5, RBC 4.27, Hgb 11.8 L, Hct 36.6 L, MCV 85.7, MCH 27.6, MCHC 32.2, RDW Std Deviation 38.5, RDW Coeff of Anu 12.5, Plt Count 284, MPV 8.5, Immature Gran % (Auto) 0.200, Neut % (Auto) 64.2, Lymph % (Auto) 23.6, Bibb % (Auto) 7.0, Eos % (Auto) 4.4, Baso % (Auto) 0.6, Absolute Neuts (auto) 5.4, Absolute Lymphs (auto) 2.00, Nucleated RBC % 0, Sodium 139, Potassium 3.4 L, Chloride 106, Carbon Dioxide 26.0, Anion Gap 7, BUN 7, Creatinine 0.68, Estim Creat Clear Calc 72.19, Est GFR (MDRD) Af Amer 114, Est GFR (MDRD) Non-Af 94, BUN/Creatinine Ratio 10.3, Glucose 97, Calcium 8.8 Microbiology: Microbiology 01/12/24 22:30 Stool Enteric Bacteriology - Final 01/12/24 22:30 Stool Clostridioides difficile (PCR) - Final 01/12/24 22:30 Stool Stool Lactoferrin - Final 01/11/24 10:17 Mucosa - Nose SARS-CoV-2, Influenza & RSV (PCR) - Final D/C Instructions Discharge Diet: [place] diet Call your doctor if you observe: Fever of 101 or Higher, Shortness of breath, Dizziness, Fainting spells, Swelling in the ankles, Chest pain and Increased palpitations (irregular heartbeat) Meaningful Use Info Meaningful Use Meaningful Use Diagnoses (Choose all that apply): None applicable Ischemic Stroke Statin Dosing Therapy Reference: STATIN DOSE THERAPY REFERENCE: * Patients > 75 years receive moderate or high dose statin therapy. * Patients 75 years or YOUNGER should receive HIGH intensity statin dose unless contraindicated. You will be required to document reason for non-treatment if statin daily dose does not meet guidelines. HIGH DOSE STATIN THERAPY DAILY Atorvastatin > than or = to 40 mg Rosuvastatin > than or = to 20 mg Amlodipine + Atorvastatin > than or = to 2.5/40 mg Ezetimibe + Simvastatin 10/80 mg Simvastatin 80mg Discharge Plan Admission Admit Date/Time: 01/11/24 14:19 Attending Provider: Zac Lin Primary Care Provider: Lasha Hartman Consulting Providers: Rafael Venegas; Jeb Agarwal Discharge Orders/Prescriptions Prescriptions: New metronidazole 500 mg Tablet 500 mg PO TID 5 Days Qty: 15 0RF ciprofloxacin HCl 500 mg Tablet 500 mg PO BID 5 Days Qty: 10 0RF dicyclomine 10 mg Capsule 10 mg PO TIDAC 30 Days Qty: 90 0RF ondansetron 4 mg tablet,disintegrating 4 mg PO Q8H PRN (Reason: nausea and vomiting) Qty: 10 0RF Continued hydroxyzine HCl 25 mg tablet 25 mg PO QHS PRN (Reason: Anxiety) atorvastatin 20 mg tablet 40 mg PO DAILY colchicine 0.6 mg tablet 0.6 mg PO BID dapsone 25 mg tablet 50 mg PO DAILY Patient Comments: Take 2 tablets by mouth once daily. olopatadine 0.6 % spray,non-aerosol 2 spray intranasal BID Patient Comments: Use 2 Sprays in each nostril twice daily. cetirizine 10 MG tablet 5 mg PO BID clopidogrel 75 MG tablet 75 mg PO DAILY Qty: 30 0RF losartan 25 MG tablet 25 mg PO DAILY Qty: 30 0RF Referrals / Follow Up: Lasha Hartman MD [Primary Care Provider] - Within 1 Week Wali Pal DO [Med Staff - Active Staff] - Within 1 Month Disposition Disposition (needs filled in before D/C Order can be placed): Home, Self Care Charges/Coding Visit Charges Inpatient E&M: 30438 Disch Hosp >30min
[2024-01-16 10:42] LABS: Calprotectin, Stool 568 ug/g (0-120)
[2024-01-19 11:59] LABS: Complement C3 115 mg/dL (82-167); IgG, Quant 995 mg/dL (586-1602); Immunoglobulin G, Subclass 1 519 mg/dL (248-810); Immunoglobulin G, Subclass 2 256 mg/dL (130-555); Immunoglobulin G, Subclass 3 31 mg/dL (15-102); Immunoglobulin G, Subclass 4 38 mg/dL (2-96)
[2024-01-20 09:10] LABS: ACCA 14 units (0-90); ALCA 22 units (0-60); AMCA 103 units (0-100); Albumin 3.9 g/dL (2.9-4.4); Alpha-1-Globulins 0.3 g/dL (0.0-0.4); Alpha-2-Globulins 0.7 g/dL (0.4-1.0); CCP IgG Antibodies 5 units (0-19); Cytoplasmic Ab (C-ANCA) <1:20 titer (Neg:<1:20); Deamidated Gliadin IgA 4 units (0-19); Deamidated Gliadin IgG 3 units (0-19); Endomysial Antibody IgA Negative (Negative); Gamma Globulin 0.9 g/dL (0.4-1.8); Immunoglobulin A 192 mg/dL (87-352); Immunoglobulin E 130 IU/mL (6-495); Immunoglobulin G 1045 mg/dL (586-1602); Immunoglobulin M 72 mg/dL (26-217); PROEL- TOTAL PROTEIN 6.7 g/dL (6.0-8.5); Perinuclear Ab (P-ANCA) <1:20 titer (Neg:<1:20); gASCA 13 units (0-50); t-Transglutaminase IgA <2 U/mL (0-3)
[2024-01-20 15:08] LABS: Anti-Centromere B Ab <0.2 AI (0.0-0.9); Anti-Chromatin <0.2 AI (0.0-0.9); Anti-Jo <0.2 AI (0.0-0.9); Anti-Scleroderma-70 AB <0.2 AI (0.0-0.9); Anti-dsDNA Ab <1 IU/mL (0-9); Beef <0.10 kU/L (Class 0); Chocolate <0.10 kU/L (Class 0); Codfish <0.10 kU/L (Class 0); Corn <0.10 kU/L (Class 0); Egg, Whole 0.11 kU/L (Class 0/I); Milk (Cow) <0.10 kU/L (Class 0); Mussels <0.10 kU/L (Class 0); Peanut <0.10 kU/L (Class 0); Pork <0.10 kU/L (Class 0); RNP Ab 0.3 AI (0.0-0.9); SJOGREN'S Anti-SS-A test < 0.2 AI (0.0-0.9); SJOGREN'S Anti-SS-B test < 0.2 AI (0.0-0.9); Salmon <0.10 kU/L (Class 0); Shrimp <0.10 kU/L (Class 0); Smith Ab <0.2 AI (0.0-0.9); Soybean <0.10 kU/L (Class 0); Tuna <0.10 kU/L (Class 0); Wheat <0.10 kU/L (Class 0)
== END 2024-01-15 09:51 | disposition home or self-care (01) | DRG 392 ==
LOC: ED 11:30 → ICU 14:49 → MS3 01-12 16:00
PROVIDERS: Anesthesiology; Hospitalist; Internal Medicine Gastroenterology; Admitting Provider Internal Medicine; Emergency Provider Emergency Medicine; PCP Family Medicine; Visit Provider Family Medicine
PROC: 0DJD8ZZ Inspection of Lower Intestinal Tract, Via Natural or Artificial Opening Endoscopic (ICD-10-PCS; CPT 45378; principal; 2024-01-14 11:40)
DX: A09 Infectious gastroenteritis and colitis, unspecified (principal); K80.20 Calculus of gallbladder without cholecystitis without obstruction; K76.0 Fatty (change of) liver, not elsewhere classified; D50.9 Iron deficiency anemia, unspecified; I10 Essential (primary) hypertension; E78.5 Hyperlipidemia, unspecified; M10.9 Gout, unspecified; Z86.73 Personal history of transient ischemic attack (TIA), and cerebral infarction without residual deficits
CPT/HCPCS: 36415; 74174; 74177; 80048; 80053; 80076; 81001; 82595; 82607; 82728; 82746; 82784; 82785; 82787; 83516; 83540; 83550; 83630; 83690; 83735; 83993; 84100; 84165; 85025; 85027; 85610; 85652; 85730; 86003; 86005; 86036; 86140; 86160; 86200; 86225; 86235; 86255; 86256; 86334; 86431; 86671; 87493; 87506; 87631; 88305; 99284; J7030; J7050; J7120; Q9967; A4216; J0744; J2405

== ENCOUNTER → 2024-02-03 | Outpatient (CLI) | payer BC, SELFPAY ==
[2024-02-03 10:52] LABS: Absolute Lymphocyte Count 1.57 X10^3/uL (0.83-4.51); Absolute Neutrophil Count 3.3 X10^3/uL (2.0-7.7); Basophil# 0.06 X10^3/uL; Basophil% 1.1 % (0-1); Eosinophil# 0.32 X10^3/uL; Eosinophils% 5.7 % (0-5); Hematocrit 41.9 % (37-47); Hemoglobin 13.3 g/dL (12.0-15.0); Lymphocyte # 1.57 X10^3/ul (0.83-4.51); Lymphocyte % 27.8 % (19-41); Mean Corp Hgb Conc 31.7 g/dL (32-36); Mean Corpuscular Hgb 27.4 pg (27.0-32.0); Mean Corpuscular Volume 86.4 fL (81-99); Mean Platelet Vol. 8.9 fl (6.2-12.0); Monocyte# 0.36 X10^3/uL; Monocyte% 6.4 % (0-10); NRBC Flagged by Analyzer 0 % (0-5); Neutrophil # 3.32 X10^3/uL (2.7-7.7); Neutrophil % 58.8 % (47-70); Platelet Count 294 K/mm3 (150-450); RBC Distribution Width CV 12.1 % (11.6-14.6); RBC Distribution Width SD 38.2 fl (35.1-43.9); Red Blood Count 4.85 M/mm3 (4.2-5.4); White Blood Count 5.6 K/mm3 (4.4-11.0)
[2024-02-03 11:17] LABS: Erythrocyte Sedimentation Rate 3 mm/hr (0-30)
[2024-02-03 11:50] LABS: ALB/GLOB Ratio 1.1 RATIO (0.9-2.4); AST(SGOT) 16 U/L (15-37); Alanine Aminotransfer ALT/SGPT 22 U/L (13-56); Albumin, Serum 3.8 g/dL (3.2-5.0); Alkaline Phosphatase 84 U/L (45-117); Anion Gap 5 (5-15); BUN 11 mg/dL (7-18); BUN/Creat Ratio 17.5 RATIO (10-20); CRP < 2.90 mg/L (0.0-3.0); Calcium,Total 9.1 mg/dL (8.5-10.1); Chloride 108 mmol/L (98-107); Creatinine, Serum 0.63 mg/dL (0.55-1.02); EST Glomerular Filtration Rate 103 mL/min (>60); Est Glom Filt Rate - Afr Amer 125 mL/min (>60); Globulin 3.6 g/dL (2.2-4.2); Glucose 82 mg/dL (74-106); Potassium 4.3 mmol/L (3.5-5.1); Protein, Total 7.4 g/dL (6.4-8.2); Sodium Level 141 mmol/L (136-145)
== END | disposition home or self-care (01) ==
LOC: LAB 09:51
PROVIDERS: PCP Family Medicine; Referring Provider Internal Medicine Gastroenterology; Visit Provider Internal Medicine Gastroenterology
DX: K50.90 Crohn's disease, unspecified, without complications (principal)
CPT/HCPCS: 36415; 80053; 85025; 85652; 86140

== ENCOUNTER → 2024-03-07 | Outpatient (CLI) | payer BC, SELFPAY ==
--- NOTE | 2024-03-07 09:14 | MRI_ITS ---
MR Enterography Abdomen/Pelvis WO/W Contrast 03/07/2024 10:39 AM COMPARISON: None available. CLINICAL HISTORY: K50.90 - Crohn''s disease, unspecified, without complications TECHNIQUE: Following oral administration of enteric contrast and administration of glucagon, multiplanar T1 and T2 weighted images along. GFR was low still cannot administer contrast. FINDINGS: GI Tract: Normal caliber. No wall thickening or mucosal hyperenhancement. No stricture, fistula, or obstruction. No drainable fluid collections. Liver: Unremarkable Gallbladder: Unremarkable Spleen: Unremarkable Pancreas: Unremarkable Adrenal Glands: Unremarkable Kidneys: Unremarkable Lymphadenopathy: Absent Ascites: Absent Bones: No suspicious lesions MRI/Enterography Abd/Pel IMPRESSION: Unremarkable MR enterography. Electronically Signed: Irving Fenton MD at 0:38 EDT ,
[2024-03-07 10:02] VITALS: BP 157/73; PULSE 82; RESP 18; O2SAT 95; BMI 22.8
[2024-03-07] MEDS: 0.9% Saline Lock 10 ML Syringe IV (10:36)
[2024-03-07] MEDS: Glucagon 1 MG/ML Syringe IV (10:53)
[2024-03-07 10:58] VITALS: BP 140/68; PULSE 88; RESP 18; O2SAT 95
== END | disposition home or self-care (01) ==
LOC: MRI 09:07
PROVIDERS: PCP Family Medicine; Referring Provider Internal Medicine Gastroenterology; Visit Provider Internal Medicine Gastroenterology
DX: K50.90 Crohn's disease, unspecified, without complications (principal)
CPT/HCPCS: 74183; 96374; A9575; A4216; J1610

== ENCOUNTER → 2024-05-12 | Outpatient (CLI) | payer BC, SELFPAY ==
[2024-05-12 16:45] LABS: Absolute Lymphocyte Count 2.41 X10^3/uL (0.83-4.51); Absolute Neutrophil Count 3.6 X10^3/uL (2.0-7.7); Basophil# 0.08 X10^3/uL; Basophil% 1.2 % (0-1); Eosinophil# 0.25 X10^3/uL; Eosinophils% 3.6 % (0-5); Hematocrit 39.2 % (37-47); Hemoglobin 12.5 g/dL (12.0-15.0); Lymphocyte # 2.41 X10^3/ul (0.83-4.51); Lymphocyte % 35.1 % (19-41); Mean Corp Hgb Conc 31.9 g/dL (32-36); Mean Corpuscular Hgb 26.9 pg (27.0-32.0); Mean Corpuscular Volume 84.3 fL (81-99); Mean Platelet Vol. 8.5 fl (6.2-12.0); Monocyte# 0.54 X10^3/uL; Monocyte% 7.9 % (0-10); NRBC Flagged by Analyzer 0 % (0-5); Neutrophil # 3.57 X10^3/uL (2.7-7.7); Neutrophil % 51.9 % (47-70); Platelet Count 314 K/mm3 (150-450); RBC Distribution Width CV 12.6 % (11.6-14.6); RBC Distribution Width SD 38.1 fl (35.1-43.9); Red Blood Count 4.65 M/mm3 (4.2-5.4); White Blood Count 6.9 K/mm3 (4.4-11.0)
[2024-05-12 16:51] LABS: Erythrocyte Sedimentation Rate 3 mm/hr (0-30)
[2024-05-12 17:23] LABS: ALB/GLOB Ratio 1.2 RATIO (0.9-2.4); AST(SGOT) 13 U/L (15-37); Alanine Aminotransfer ALT/SGPT 21 U/L (13-56); Albumin, Serum 3.9 g/dL (3.2-5.0); Alkaline Phosphatase 77 U/L (45-117); Anion Gap 5 (5-15); BUN 10 mg/dL (7-18); BUN/Creat Ratio 12.4 RATIO (10-20); CRP < 2.90 mg/L (0.0-3.0); Chloride 106 mmol/L (98-107); Creatinine, Serum 0.81 mg/dL (0.55-1.02); EST Glomerular Filtration Rate 78 mL/min (>60); Est Glom Filt Rate - Afr Amer 94 mL/min (>60); Globulin 3.3 g/dL (2.2-4.2); Glucose 78 mg/dL (74-106); Potassium 3.4 mmol/L (3.5-5.1); Protein, Total 7.2 g/dL (6.4-8.2); Sodium Level 140 mmol/L (136-145)
[2024-05-14 20:07] LABS: HEPATITIS B SURFACE AG Negative (Negative); Hep C Antibodies Non Reactive (Non Reactive); Hepatitis A IgM Antibody Negative (Negative); Hepatitis B Core AB IgM Negative (Negative); QNTFERON TB Mitogen Value > 10.00 IU/mL (.); QNTFERON TB Nil Value 0 IU/mL (.); QNTFERON TB1+ Ag Value 0 IU/mL (.); QNTFERON TB2+ Ag Value 0.01 IU/mL (.); QNTIFERON TB Positive Criteria Negative (Negative)
== END | disposition home or self-care (01) ==
LOC: LAB 15:46
PROVIDERS: PCP Family Medicine; Referring Provider Internal Medicine Gastroenterology; Visit Provider Internal Medicine Gastroenterology
DX: K55.9 Vascular disorder of intestine, unspecified (principal); K50.90 Crohn's disease, unspecified, without complications; K62.5 Hemorrhage of anus and rectum
CPT/HCPCS: 36415; 80053; 80074; 85025; 85652; 86140; 86480

== ENCOUNTER 2024-08-15 07:38 | Emergency (ER) | payer BC, SELFPAY ==
[2024-08-15 07:38] VITALS: BP 170/89; PULSE 111; RESP 16; TEMP 36.8; O2SAT 99; BMI 23.6
--- NOTE | 2024-08-15 07:53 | EKG12_ITS ---
Test Reason : HTN Blood Pressure : */* mmHG Vent. Rate : 93 BPM Atrial Rate : 93 BPM P-R Int : 140 ms QRS Dur : 104 ms QT Int : 380 ms P-R-T Axes : 47 -1 59 degrees QTcB Int : 472 ms Normal sinus rhythm Minimal voltage criteria for LVH, may be normal variant ( Chad product ) Borderline ECG Confirmed by Daniele Wahl ([id number]), editor publications RADHA WESTBROOK ([id number]) on 08/16/2024 10:49:44 AM Referred By: Confirmed By: Daniele Wahl
--- NOTE | 2024-08-15 07:53 | CT_ITS ---
EXAM: CT Head Without Intravenous Contrast CLINICAL INDICATION: TECHNIQUE: Axial computed tomography images of the head/brain without intravenous contrast. This CT exam was performed using one or more of the following dose reduction techniques: automated exposure control, adjustment of the mA and/or kV according to patient size, and/or use of iterative reconstruction technique. COMPARISON: No relevant prior studies available. FINDINGS: BRAIN AND EXTRA-AXIAL SPACES: No acute intracranial hemorrhage, midline shift or mass effect. If symptoms persist, further evaluation with MRI is recommended. No significant white matter disease. BONES/JOINTS: Unremarkable. No acute fracture. SOFT TISSUES: Unremarkable. SINUSES: Unremarkable as visualized. No acute sinusitis. MASTOID AIR CELLS: Unremarkable as visualized. No mastoid effusion. CT/Brain/Head without Contrast IMPRESSION: No acute intracranial hemorrhage, midline shift or mass effect. If symptoms per sist, further evaluation with MRI is recommended. Reading [facility]
--- NOTE | 2024-08-15 07:54 | EX.ED.DYSGE1 ---
HPI History of Present Illness Chief Complaint: Hypertension Detail of Chief Complaint: High blood pressure, dizziness Informant: patient Narrative Narrative: Patient presents the emergency department with complaint of elevated blood pressure this morning. Patient states that she woke up this morning and just felt kind of lightheaded and shaky. She went to work and symptoms continue to worsen. They checked her blood pressure and it was in the 170s systolic. She did take her blood pressure medications this morning and states that normally her systolic is in the 140s. She is concerned because she had a TIA about 5 years ago. She is currently on Plavix. She thinks maybe she had a little bit of numbness and tingling in the right hand but that resolved. Currently complains of a mild headache. No falls or head injuries. Denies recent illness. Denies urinary symptoms. Denied trouble with speech or vision. Denied focal weakness. 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 Home Medications ?Medication ?Instructions ?Recorded ?Last Taken ?Type cetirizine 10 mg tablet 5 mg PO BID allergies 10/29/15 Unknown History clopidogrel 75 mg tablet 75 mg PO DAILY #30 tabs 05/27/19 Unknown Rx losartan 25 mg tablet 25 mg PO DAILY #30 tabs 05/27/19 Unknown Rx hydroxyzine HCl 25 mg tablet 25 mg PO QHS PRN Anxiety 07/06/19 Unknown History atorvastatin 20 mg tablet 40 mg PO DAILY 01/03/22 Unknown History colchicine 0.6 mg tablet 0.6 mg PO BID 01/03/22 Unknown History dapsone 25 mg tablet 50 mg PO DAILY 01/03/22 Unknown History dicyclomine 10 mg capsule 10 mg PO TIDAC 30 days #90 caps 03/15/24 Unknown Rx hyoscyamine sulfate 0.125 mg tablet 0.125 mg PO BID-QID PRN dyspepsia 03/29/24 Unknown Rx #90 tabs ondansetron 4 mg disintegrating 4 mg PO Q8H PRN nausea and 05/04/24 Unknown Rx tablet vomiting #10 tabs budesonide 3 mg 6 mg (2 x 3 mg) PO QAM 30 days #60 05/09/24 Unknown Rx capsule,delayed,extended release ea prochlorperazine maleate 10 mg 10 mg PO TID PRN nausea and 05/09/24 Unknown Rx tablet vomiting #90 tabs lorazepam 0.5 mg tablet (Ativan) 0.5 mg PO TID PRN anxiety #10 tabs 08/15/24 Unknown Rx Allergy/AdvReac Type Severity Reaction Status Date / Time egg (eggs) Allergy Unknown PT UNSURE Verified 08/15/24 07:38 OF REACTION oxycodone HCl (From Percocet) Allergy Hives Verified 08/15/24 07:38 Sulfa (Sulfonamide Allergy Hives Verified 08/15/24 07:38 Antibiotics) Family History Mother Hypertension Diabetes Grandmother Heart disease 50-60s Aunt Heart disease 50-60s Surgical History History of carpal tunnel surgery of left wrist History of ear surgery History of spinal surgery History of hysterectomy History of hammer toe correction History of bunionectomy History of open reduction and internal fixation (ORIF) procedure Social History housing: house current occupational status: employed Smoking Status: Never smoker alcohol intake: current alcohol intake frequency: a few times a month Alcohol type: wine substance use type: does not use caffeine: Yes Type: coffee Number of servings: 2 what type of physical activity do you participate in: walking ROS ROS ED Review of Systems ROS Unobtainable: other Constitutional Constitutional ED: Reports lethargy; Denies chills, fever(s), sweats or weight loss Eyes Eyes: Denies blurry vision, change in vision or diplopia ENT ENT ED: Denies rhinorrhea or sore throat Cardiovascular Cardiovascular: Denies chest pain, orthopnea or racing heartbeat Respiratory/Chest Respiratory/Chest: Denies cough, dyspnea, dyspnea on exertion, orthopnea or sputum Gastrointestinal Gastrointestinal: Denies abdominal pain, diarrhea, nausea or vomiting Genitourinary Genitourinary ED: Denies dysuria, hematuria or urinary frequency Musculoskeletal Musculoskeletal: Denies arthralgias, back pain, myalgias or neck pain Integumentary Denies abscess, Abrasions or rash Neurologic Neurologic: Reports headache(s), paresthesias and other Details: Lightheadedness, shaky ; Denies weakness Psychiatric Psychiatric: Denies anxiety, depression or suicidal thoughts Endocrine Endocrinology: Denies polydipsia, polyphagia or polyuria Hematologic/Lymphatic Hematologic/Lymphatic: Denies easy bleeding, easy bruising or lymphadenopathy Allergic/Immunologic Allergic/Immunologic ED: Denies mouth swelling, tongue swelling or urticaria EXAM Physical Exam Const Vital Signs: 08/15/24 07:38 08/15/24 08:02 Temperature 98.3 F Temperature Source Oral Pulse Rate 111 H Respiratory Rate 16 Respiratory Effort Normal Respiratory Pattern Tachypnea Blood Pressure 170/89 H Blood Pressure Mean 116 Pulse Ox 99 Positive well nourished and well developed General Appearance ED: well developed and NAD HEENT Reports TM's clear and moist mucous membranes normocephalic and atraumatic; Negative for trauma or tenderness Tympanic Membrane ED: Yes TM's clear Eyes PERRL and EOMs intact bilaterally General Eye ED: Negative for pale conjunctiva or scleral icterus Neck no lymphadenopathy, supple and no JVD General: Negative for tenderness Chest Wall inspection of chest normal and palpation of chest normal Chest: Negative for tenderness Resp normal respiratory effort and clear to auscultation bilaterally Effort and Inspection: Negative for respiratory distress or pain with movement Auscultation: Negative for rhonchi, wheezes or diminished lung sounds Cardio regular rate, regular rhythm, S1 normal heart sound, S2 normal heart sound and no murmurs Peripheral Pulses: pulses 2+ throughout GI normal to inspection, nondistended, normoactive bowel sounds, soft to palpation, non-tender, non-distended and no masses Back/Spine no CVA tenderness and no thoracic nor lumbar tenderness Extremity normal to inspection General Extremety ED: Negative for edema General Extremity: Negative for edema Neuro oriented x3, CN's II-XII intact bilaterally, no sensory deficits noted and gait normal Sensorium / Orientation: awake, alert, oriented to person, oriented to place and oriented to time Motor Exam: strength 5/5 throughout and strength abnormal Psych mental status grossly normal Skin no rashes or lesions noted and no wounds MDM MDM MDM Narrative Medical decision making narrative: Patient presents the emergency department with vague symptoms of hypertension and lightheadedness and feeling somewhat shaky. She had some mild paresthesias in her right hand that have resolved. The symptoms started upon waking this morning. She then went to work. Noted elevated blood pressure at that time. Clinically she looks well. NIH stroke scale is 0. She has had prior TIA but my suspicion for stroke is very low. IV line established. EKG obtained arrival showed a sinus rhythm with ventricular rate of 93 bpm with no acute ST segment changes. CBC with differential showed white count 7.3 with hemoglobin 14 and platelet count of 264. Chemistries unremarkable. Troponin normal less than 6. Urinalysis was normal. CT scan of the brain without contrast was unremarkable. While in the department I did give her half a milligram of Ativan IV and her symptoms markedly improved. She feels back to baseline. Blood pressure also improved now 120 systolic over 66. I suspect anxiety component. I will order a prescription for as needed Ativan. Advised to follow-up with her primary care physician 3 to 5 days. Advised to keep a journal of her blood pressures and follow-up with her primary care physician Lab Data Attestation: I reviewed the patient's lab results. Labs: Laboratory Results - last 24 hr 08/15/24 08/15/24 07:59 08:12 WBC 7.3 RBC 4.97 Hgb 14.1 Hct 43.7 MCV 87.9 MCH 28.4 MCHC 32.3 RDW Std Deviation 41.1 RDW Coeff of Anu 12.8 Plt Count 264 MPV 8.3 Immature Gran % (Auto) 0.800 Neut % (Auto) 69.3 Lymph % (Auto) 20.0 [place] % (Auto) 7.7 Eos % (Auto) 1.2 Baso % (Auto) 1.0 Absolute Neuts (auto) 5.0 Absolute Lymphs (auto) 1.45 Nucleated RBC % 0 Sodium 137 Potassium 3.7 Chloride 103 Carbon Dioxide 18.3 L Anion Gap 16 H BUN 7 Creatinine 0.75 Estim Creat Clear Calc 66.99 Est GFR (MDRD) Non-Af 92 BUN/Creatinine Ratio 9.9 L Glucose 86 Calcium 8.9 Troponin T High Sens < 6 Urine Color Yellow Urine Clarity Clear Urine pH 6.5 Ur Specific [place] 1.010 Urine Protein 15 H Urine Glucose (UA) Normal Urine Ketones Negative Urine Occult Blood 10 H Urine Nitrite Negative Urine Bilirubin Negative Urine Urobilinogen Normal Ur Leukocyte Esterase Negative Urine RBC 0 SEEN Urine WBC 0 SEEN Ur Squamous Epith Cells 0 SEEN Urine Bacteria 0 SEEN Urine Mucus 0 SEEN Radiography Diagnostic Testing: Clinical Impression(s) from Imaging Studies Brain CT 08/15/24 07:53 IMPRESSION: No acute intracranial hemorrhage, midline shift or mass effect. If symptoms persist, further evaluation with MRI is recommended. Reading Location: [facility] EKG Initial EKG: Attestation: I personally reviewed and interpreted this EKG as follows: Comments: Sinus rhythm with rate of 93 bpm with no acute ST segment Discharge Plan Triage Chief Complaint: Hypertension ED Provider: Neto Clayton Dx/Rx/DC Orders Clinical Impression: Hypertension, Anxiety Instructions: ED Anxiety Reaction, ED Hypertension, Established Prescriptions: New lorazepam [Ativan] 0.5 mg tablet 0.5 mg PO TID PRN (Reason: anxiety) Qty: 10 0RF No Action hydroxyzine HCl 25 mg tablet 25 mg PO QHS PRN (Reason: Anxiety) atorvastatin 20 mg tablet 40 mg PO DAILY colchicine 0.6 mg tablet 0.6 mg PO BID dapsone 25 mg tablet 50 mg PO DAILY Patient Comments: Take 2 tablets by mouth once daily. ondansetron 4 mg tablet,disintegrating 4 mg PO Q8H PRN (Reason: nausea and vomiting) Qty: 10 1RF cetirizine 10 MG tablet 5 mg PO BID clopidogrel 75 MG tablet 75 mg PO DAILY Qty: 30 0RF losartan 25 MG tablet 25 mg PO DAILY Qty: 30 0RF dicyclomine 10 mg capsule 10 mg PO TIDAC 30 Days Qty: 90 0RF hyoscyamine sulfate 0.125 mg tablet 0.125 mg PO BID-QID PRN (Reason: dyspepsia) Qty: 90 0RF budesonide 3 mg capsule,delayed,extend.release 6 mg PO QAM 30 Days Qty: 60 3RF prochlorperazine maleate 10 mg tablet 10 mg PO TID PRN (Reason: nausea and vomiting) Qty: 90 1RF Primary Care Provider: Lasha Hartman Referrals: Lasha Hartman MD [Primary Care Provider] - 3-5 Days Print Language: Hungarian Disposition Disposition: Home, Self Care
[2024-08-15] MEDS: Lorazepam 2 MG/ML WCH Syringe 0.5 MG IV (08:05)
[2024-08-15 08:17] LABS: Absolute Lymphocyte Count 1.45 X10^3/uL (0.83-4.51); Basophil# 0.07 X10^3/uL; Eosinophil# 0.09 X10^3/uL; Eosinophils% 1.2 % (0-5); Hematocrit 43.7 % (37-47); Hemoglobin 14.1 g/dL (12.0-15.0); Lymphocyte # 1.45 X10^3/ul (0.83-4.51); Mean Corp Hgb Conc 32.3 g/dL (32-36); Mean Corpuscular Hgb 28.4 pg (27.0-32.0); Mean Corpuscular Volume 87.9 fL (81-99); Mean Platelet Vol. 8.3 fl (6.2-12.0); Monocyte# 0.56 X10^3/uL; Monocyte% 7.7 % (0-10); NRBC Flagged by Analyzer 0 % (0-5); Neutrophil # 5.02 X10^3/uL (2.7-7.7); Neutrophil % 69.3 % (47-70); Platelet Count 264 K/mm3 (150-450); RBC Distribution Width CV 12.8 % (11.6-14.6); RBC Distribution Width SD 41.1 fl (35.1-43.9); Red Blood Count 4.97 M/mm3 (4.2-5.4); White Blood Count 7.3 K/mm3 (4.4-11.0)
[2024-08-15 08:17] LABS: Bacteria 0 SEEN /hpf (None Seen); Mucous, Urine 0 SEEN /hpf (<or=2+); Squamous Epithelial Cells - UA 0 SEEN /hpf (5-10); White Blood Cells 0 SEEN /hpf (0-5)
[2024-08-15 08:24] LABS: Color, Urine Yellow (Yellow); Glucose, Dipstick Normal (Normal); Ketone-Dipstick Negative (Negative); Leukocyte Esterase-Dipstick Negative /ul (Negative); Nitrite-Dipstick Negative (Negative); Occult Blood-Urine 10 /ul (Negative); Protein-Dipstick 15 mg/dl (Negative); Urine Bilirubin Dipstick Negative (Negative); Urine Clarity Clear (Clear); Urine Urobilinogen Normal (Normal); Urine pH 6.5 (5.0 - 8.0)
[2024-08-15 08:37] LABS: Anion Gap 16 (5-15); BUN 7 mg/dL (4-19); BUN/Creat Ratio 9.9 RATIO (10-20); Calcium,Total 8.9 mg/dL (7.6-11.0); Carbon Dioxide 18.3 mmol/L (21.0-32.0); Chloride 103 mmol/L (98-108); Creatinine, Serum 0.75 mg/dL (0.70-1.20); EST Glomerular Filtration Rate 92 (>60); Estimated Creatinine Clearance 66.99 ml/min (50-250); Glucose 86 mg/dL (70-99); Potassium 3.7 mmol/L (3.3-5.1); Sodium Level 137 mmol/L (133-145)
[2024-08-15 08:38] VITALS: BP 139/77; PULSE 78; RESP 19; O2SAT 98
[2024-08-15 08:52] LABS: Red Blood Cells-Urine 0 SEEN /hpf (0-5)
[2024-08-15 08:58] LABS: Troponin T High Sensitivity < 6 ng/L (<=14)
[2024-08-15 09:00] VITALS: BP 126/80; PULSE 77; RESP 19; O2SAT 98
[2024-08-15 09:32] VITALS: BP 120/77; PULSE 78; RESP 18; TEMP 36.8; O2SAT 97
== END 2024-08-15 09:34 | disposition home or self-care (01) ==
PROVIDERS: Emergency Provider Emergency Medicine; PCP Family Medicine; Visit Provider Emergency Medicine
DX: I10 Essential (primary) hypertension (principal); F41.9 Anxiety disorder, unspecified; Z86.73 Personal history of transient ischemic attack (TIA), and cerebral infarction without residual deficits
CPT/HCPCS: 70450; 80048; 81001; 84484; 85025; 93005; 96374; 99283; A4216

== ENCOUNTER → 2024-10-21 | Outpatient (CLI) | payer BC, SELFPAY ==
--- NOTE | 2024-10-21 16:25 | CT_ITS ---
EXAM: CT Angiography Abdomen and Pelvis Without and With Intravenous Contrast CLINICAL INDICATION: ISCHEMIC COLITIS TECHNIQUE: Axial computed tomographic angiography images of the abdomen and pelvis without and with intravenous contrast. This CT exam was performed using one or more of the following dose reduction techniques: automated exposure control, adjustment of the mA and/or kV according to patient size, and/or use of iterative reconstruction technique. MIP reconstructed images were created and reviewed. COMPARISON: No relevant prior studies available. FINDINGS: VASCULATURE: AORTA: Scattered calcified atherosclerotic disease of the aorta without aneurysm or dissection. CELIAC TRUNK AND MESENTERIC ARTERIES: No acute findings. No occlusion or significant stenosis. RENAL ARTERIES: No acute findings. No occlusion or significant stenosis. ILIAC ARTERIES: No acute findings. No occlusion or significant stenosis. LUNG BASES: Unremarkable. No mass. No consolidation. ABDOMEN: LIVER: Hepatomegaly with fatty infiltration. GALLBLADDER AND BILE DUCTS: Cholelithiasis. No ductal dilation. PANCREAS: Unremarkable. No ductal dilation. No mass. SPLEEN: Unremarkable. No splenomegaly. ADRENALS: Unremarkable. No mass. KIDNEYS AND URETERS: Unremarkable. No obstructing stones. No hydronephrosis. No solid mass. STOMACH AND BOWEL: Fecal retention in the colon consistent with constipation. No obstruction. No mucosal thickening. PELVIS: APPENDIX: No findings to suggest acute appendicitis. BLADDER: Unremarkable. No stones. No mass. REPRODUCTIVE: Unremarkable as visualized. ABDOMEN and PELVIS: INTRAPERITONEAL SPACE: Unremarkable. No significant fluid collection. No free air. BONES/JOINTS: No acute fracture. No dislocation. SOFT TISSUES: Unremarkable. LYMPH NODES: Unremarkable. No enlarged lymph nodes. OTHER FINDINGS: No contrast extravasation to suggest active bleed. Status post posterior fusion of L4-S1 with disc spaces of L5-S1. CT/CTA Abd/Pelvis W/WO Contrast IMPRESSION: 1. Scattered calcified atherosclerotic disease of the aorta without aneurysm o r dissection. 2. No contrast extravasation to suggest active bleed. 3. Cholelithiasis. 4. Hepatomegaly with fatty infiltration. 5. Fecal retention in the colon consistent with constipation. Reading Location: [id number]
[2024-10-21 17:08] LABS: ALB/GLOB Ratio 1.5 RATIO (0.9-2.4); AST(SGOT) 24 U/L (<=31); Alanine Aminotransfer ALT/SGPT 27 U/L (<=34); Albumin, Serum 4.4 g/dL (3.5-5.0); Alkaline Phosphatase 98 U/L (35-104); Anion Gap 12 (5-15); BUN 10 mg/dL (4-19); BUN/Creat Ratio 13.6 RATIO (10-20); Carbon Dioxide 22.5 mmol/L (21.0-32.0); Chloride 103 mmol/L (98-108); Creatinine, Serum 0.73 mg/dL (0.70-1.20); EST Glomerular Filtration Rate 96 (>60); Glucose 87 mg/dL (70-99); Potassium 3.6 mmol/L (3.3-5.1); Protein, Total 7.3 g/dL (5.9-8.4); Sodium Level 137 mmol/L (133-145); Total Bilirubin 0.48 mg/dL (0.00-1.30)
[2024-10-21 17:09] LABS: Absolute Lymphocyte Count 2.21 X10^3/uL (0.83-4.51); Absolute Neutrophil Count 3.5 X10^3/uL (2.0-7.7); Basophil# 0.02 X10^3/uL; Basophil% 0.3 % (0-1); Eosinophil# 0.02 X10^3/uL; Eosinophils% 0.3 % (0-5); Hematocrit 39.6 % (37-47); Hemoglobin 13.2 g/dL (12.0-15.0); Lymphocyte # 2.21 X10^3/ul (0.83-4.51); Lymphocyte % 35.5 % (19-41); Mean Corp Hgb Conc 33.3 g/dL (32-36); Mean Corpuscular Hgb 28.1 pg (27.0-32.0); Mean Corpuscular Volume 84.3 fL (81-99); Mean Platelet Vol. 8.4 fl (6.2-12.0); Monocyte# 0.44 X10^3/uL; Monocyte% 7.1 % (0-10); NRBC Flagged by Analyzer 0 % (0-5); Neutrophil # 3.51 X10^3/uL (2.7-7.7); Neutrophil % 56.5 % (47-70); Platelet Count 286 K/mm3 (150-450); RBC Distribution Width CV 12.4 % (11.6-14.6); RBC Distribution Width SD 37.8 fl (35.1-43.9); White Blood Count 6.2 K/mm3 (4.4-11.0)
[2024-10-21 17:14] LABS: D-Dimer Quantitative (DVT/PE) 0.33 FEU/ug/m (0.27-0.49)
[2024-10-21 17:16] LABS: Erythrocyte Sedimentation Rate 8 mm/hr (0-30)
[2024-10-21 17:25] LABS: LDH 202 U/L (84-246)
== END | disposition home or self-care (01) ==
LOC: CT 15:50
PROVIDERS: PCP Family Medicine; Referring Provider Internal Medicine Gastroenterology; Visit Provider Internal Medicine Gastroenterology
DX: K55.9 Vascular disorder of intestine, unspecified (principal)
CPT/HCPCS: 36415; 74174; 80053; 83615; 85025; 85379; 85652; 86140; Q9967

== ENCOUNTER → 2024-12-27 | Outpatient (CLI) | payer BC, SELFPAY | END | disposition home or self-care (01) | LOC: SL 19:52 | PROVIDERS: PCP Family Medicine; Referring Provider Nurse Practitioner Acute Care; Visit Provider Nurse Practitioner Acute Care | DX: G47.33 Obstructive sleep apnea (adult) (pediatric) (principal) | CPT/HCPCS: 95811 ==